=== PATIENT | female | born 1950 | race Caucasian/White ===

== ENCOUNTER 2020-10-19 05:26 | Inpatient (IN) | payer MEDICARE, OTHER, SELFPAY ==
[2020-10-19] VITALS (14 sets, daily range): BP systolic 107–159; BP diastolic 63–87; PULSE 58–80; RESP 15–21; TEMP 36.3–36.4; O2SAT 90–98; BMI 36.2
--- NOTE | ~2020-10-19 | CT_ITS ---
EXAMINATION: CT brain wo con DATE: 10/19/2020 06:44 INDICATION: Confusion TECHNIQUE: Computed tomography (CT) of the head was performed without intravenous contrast. The dose- length product was 756.67 mGy-cm. The mA was adjusted according to patient size. Iterative reconstruc tion technique was employed. COMPARISON: CT dated 11/30/2018 FINDINGS: Mild atrophy. There are scattered mild periventricular and subcortical white matter changes , most likely related to small vessel ischemic disease (microangiopathy). There is intracranial ather osclerosis. No ventriculomegaly or midline shift. Paranasal sinuses and mastoids are pneumatized. No depressed skull fractures. IMPRESSION: 1. No acute intracranial abnormality. Reviewed, dictated and finalized at location A. SS REPRESENTATIVE
--- NOTE | ~2020-10-19 | XR_ITS ---
XR chest 1V 10/19/2020 06:45 Indication: Shortness of breath. Low oxygen saturation. Procedure: AP view of the chest Comparison: 10/30/2019 Findings: Airspace disease of the left mid and lower lung. Borderline heart size. No edema, pleural e ffusion or pneumothorax. No acute osseous abnormality. Airspace disease of the left mid and lower roshni g, consistent with pneumonia. Impression: 1: Reviewed, dictated and finalized at location A. INTAKE WORKER Impression: 1:
--- NOTE | ~2020-10-19 | CT_ITS ---
EXAMINATION: CTA chest PE protocol DATE: 10/19/2020 07:05 CHIPPER INDICATION: Shortness of breath. Low oxygen saturation. TECHNIQUE: Computed tomographic angiography (CTA) of the chest was performed with 100 mL Omnipaque-35 0 intravenous contrast. The dose-length product was 453.51 mGy-cm. Maximum intensity projection 3D-re constructions of the aorta and other arteries were constructed by the technologist on a separate work station. COMPARISON: Chest x-ray dated 10/19/2020. FINDINGS: The study is technically adequate without evidence for pulmonary embolism. No significant p leural or pericardial effusion. Mild mediastinal lymphadenopathy, likely reactive. Cardiomegaly. Trac e pleural effusions. No significant pericardial effusion. The upper abdomen is unremarkable. There is patchy diffuse groundglass opacification throughout both lungs, consistent with pneumonia. N o endobronchial lesions. IMPRESSION: 1. Patchy diffuse bilateral groundglass opacification of the lungs, compatible with pneumonia. 2: Cardiomegaly. 3: No evidence for pulmonary embolism. Reviewed, dictated and finalized at location A. PER
--- NOTE | ~2020-10-19 | XR_ITS ---
XR chest 1V portable 10/21/2020 06:08 Indication: Follow-up pneumonia. Dyspnea. Procedure: AP portable chest Comparison: Comparison to multiple prior studies sequentially, with oldest reviewed study dated 03/29. Findings: Bilateral perihilar airspace disease. Heart size normal. No pleural effusion or pneumothora x. There is atherosclerosis. No acute osseous abnormality. Impression: 1: Persistent perihilar airspace disease which may represent pneumonia or developing edema. Reviewed, dictated and finalized at location A. DRY MACHINE TENDER Impression: 1: Persistent perihilar airspace disease which may represent pneumonia or devel oping edema.
--- NOTE | 2020-10-19 05:35 | ECG_ITS ---
Measurements Intervals [place] Rate: 65 P: 17 VT: 155 QRS: -5 QRSD: 85 T: 14 QT: 440 QTc: 459 Interpretive Statements SINUS RHYTHM VOLTAGE CRITERIA FOR LVH BORDERLINE T WAVE ABNORMALITY- INFERIOR LEADS BORDERLINE ECG Electronically Signed On 10-19-2020 6:50:33 LIGHTING DESIGNER by Rudy Mo D.O.
[2020-10-19 05:53] LABS: Basophils Percent Auto 0.2 % (0.2-1.2); Eosinophils Absolute Auto 0.1 K/mm3 (0-0.3); Eosinophils Percent Auto 1.2 % (0-4.4); Hematocrit 39.5 % (37.0-47.0); Hemoglobin 13.3 g/dL (12.0-15.0); Immature Granulocyte Absolute 0.01 K/mm3 (0.00-0.031); Immature Granulocyte Percent A 0.2 % (0-0.5); Immature Platelet Fraction Pct 3.3 % (0.9-11.2); Lymphocytes Absolute Auto 0.77 K/mm3 (0.9-3.2); Lymphocytes Percent Auto 18.6 % (18.3-44.2); Mean Corpuscular HGB Conc 33.7 g/dl (32-36); Mean Corpuscular Hemoglobin 32.6 pg (26-34); Mean Corpuscular Volume 96.8 fl (80-100); Mean Platelet Volume 10.5 fl (7.4-10.4); Monocytes Absolute Auto 0.4 K/mm3 (0.1-0.6); Monocytes Percent Auto 10.4 % (2.6-8.5); Neutrophils Absolute Auto 2.9 K/mm3 (1.3-6.7); Neutrophils Percent Auto 69.4 % (45.5-73.1); Platelet Count Result 115 k/mm3 (150-375); Red Blood Count 4.08 M/mm3 (4.2-5.4); Red Cell Distribution Width 12.2 % (11.5-14.5); White Blood Count 4.1 K/mm3 (4.5-10.0)
[2020-10-19 06:05] LABS: Alanine Aminotransferase 19 U/L (4-35); Albumin Level 3.6 g/dL (3.5-5.1); Alkaline Phosphatase 75 U/L (38-126); Anion Gap 8 mmol/L (8-16); Aspartate Amino Transferase 31 U/L (14-36); Bilirubin,Total 0.4 mg/dL (0.2-1.3); Blood Urea Nitrogen 11 mg/dL (7-17); Calcium 8.6 mg/dL (8.4-10.2); Carbon Dioxide 23 mmol/L (22-30); Chloride 105 mmol/L (98-107); Estimated CRCL calculation 67 ml/min; Estimated Glomerular Filt Rate > 60; Glucose 96 mg/dL (65-105); Potassium 3.7 mmol/L (3.4-5.0); Sodium 136 mmol/L (137-145)
--- NOTE | 2020-10-19 06:14 | ED.GENADULT ---
HPI - General Adult General Chief complaint: Dizziness Stated complaint: dizziness, no taste or smell, slow speech, Time Seen by Provider: 10/19/20 05:51 Source: patient Mode of arrival: ambulatory Limitations: no limitations History of Present Illness HPI narrative: Patient is a 7-year-old female complaining of low oxygen saturation at home, between 85 to 90% on her pulse oximeter, fever, headache, loss of taste and smell that started yesterday. Patient's partner also states that patient haD been confused described as repeating herself . Patient is alert and oriented x4 and not confused on examination. Patient states that her partner just tested positive for Covid 1 week ago. Related Data Home Medications Medication Instructions Recorded Confirmed alprazolam 10/30/19 atorvastatin 10/30/19 citalopram mg 10/30/19 lisinopril 10/30/19 Allergies Allergy/AdvReac Type Severity Reaction Status Date / Time Penicillins Allergy Unknown Rash Verified 07/28/19 18:36 Review of Systems Review of Systems: All systems reviewed & are unremarkable except as noted in HPI and below Constitutional: Constitutional: Denies body ache(s), Denies chills, Denies excessive sweating, Denies fatigue, Denies headache(s), Denies lethargy, Denies weakness and Denies weight loss Eyes: Eyes: Denies blurry vision, Denies change in vision and Denies loss of vision ENT: Denies dizziness, Denies ear discharge, Denies headache(s), Denies lip swelling, Denies epistaxis, Denies nasal congestion, Denies neck pain, Denies throat swelling and Denies tongue swelling Cardiovascular: Cardiovascular: Denies chest pain, Denies chest pain at rest, Denies chest pain with activity, Denies diaphoresis, Denies rapid heart rate, Denies edema, Denies irregular heart rhythm, Denies lightheadedness, Denies palpitations, Denies dyspnea and Denies dyspnea on exertion Respiratory: Respiratory: Denies chest congestion, Denies cough and Denies hemoptysis Gastrointestinal: Gastrointestinal: Denies abdominal pain, Denies melena, Denies hematochezia, Denies diarrhea, Denies nausea, Denies vomiting and Denies hematemesis Musculoskeletal: Musculoskeletal: Denies abnormal gait, Denies deformity, Denies joint swelling, Denies limited range of motion, Denies neck pain and Denies numbness Neurologic: Denies Abnormal speech present, Denies abnormal gait, Denies dizziness, Denies headache(s), Denies focal weakness, Denies loss of vision, Denies numbness, Denies Other visual disturbances, Denies Sensory deficit (Neuro) and Denies weakness Psychiatric: Psychiatric: Denies confusion, Denies depression, Denies auditory hallucinations, Denies homicidal ideation and Denies suicidal ideation Endocrine: Endocrine: Denies cold intolerance, Denies excessive sweating, Denies fatigue, Denies heat intolerance and Denies palpitations Hematologic/Lymphatic: Hematologic/Lymphatic: Denies easy bleeding and Denies easy bruising Allergic/Immunologic: Allergic/Immunologic: Denies lip swelling, Denies throat swelling and Denies tongue swelling [facility] Past Medical History Medical History (Updated 10/31/19 @ 00:00 by Background Daemon) CAD (coronary artery disease) Chronic back pain Depression Diabetes mellitus, type II HLD (hyperlipidemia) HTN (hypertension) Hx of hepatitis C Sleep apnea TIA (transient ischemic attack) 1999 Surgical History Surgical History H/O gastric bypass Lap band procedure Hx of cholecystectomy Hx of hysterectomy Family History Family History Other Cerebrovascular accident Diabetes mellitus Hypertension Social History Social History Smoking status: Never smoker Exam Const: General: cooperative, healthy appearing, comfortable, no acute distress, well developed, alert and awake; No confusio
[2020-10-19 06:17] LABS: Alveolar/Arterial O2 Gradient 69.2 mmHg; Base Excess ABG -5.3 mEq/l (+/-2.0); Carboxyhemoglobin 0.6 % THb (0-2.0); Fractional Inspired Oxygen 26 %; Methemoglobin ABG 0.3 %THb (0-1.5); Oxygen Content ABG 17.7 %vol (16.0-22.0); Oxygen Saturation ABG 95.2 % (95.0-100.0); Oxyhemoglobin 93.8 % THb (90.0-100.0); PCO2 ABG 33.3 mmHg (35.0-45.0); PO2 ABG 76.7 mmHg (80.0-100.0); PO2 FiO2 Ratio Arterial Blood 2.95 %; Reduced Hemoglobin 5.3 %THb (0-5.0); Total Hemoglobin 13.4 g/dL (12.0-18.0); pH ABG 7.374 (7.350-7.450)
[2020-10-19 06:18] LABS: Device NASAL CANNULA; Liters per Minute 1.5 LPM; Modified Allen's Test Pass; Site Drawn RIGHT RADIAL
[2020-10-19 06:24] LABS: Add Urine Microscopic? YES; Appearance Urine Clear (Clear); Bilirubin Urine Negative (Negative); Blood Urine Negative (Negative); Color Urine Straw (Yellow); Glucose Urine UA Negative (Negative); Ketones Urine Negative (Negative); Leukocyte Esterase Ur Negative LEU/UL (Negative); Nitrate Urine Negative (Negative); Protein Urine Negative (Negative); Specific Grav Ur 1.008 (1.001-1.035); Urobilinogen Urine Negative mg/dL (<2.0); WBC Urine 0-3 /hpf
[2020-10-19 06:34] LABS: INR 0.9; Prothrombin Time 13.2 Seconds (11.1-14.7)
[2020-10-19 06:35] LABS: Lactic Acid Reflex 1.4 mmol/L (0.7-2.1)
[2020-10-19 06:35] LABS: Partial Thromboplastin Time 34.9 SECONDS (22.3-36.8)
[2020-10-19 06:37] LABS: D Dimer 0.34 ug/mL (<0.48)
[2020-10-19 06:40] LABS: NT Pro B Type Natriuretic Pept 148 PG/ML (5-100); Troponin I < 0.012 ng/mL (0.000-0.034)
--- NOTE | 2020-10-19 07:07 | PC.NURSE ---
Assumed care of pt at this time, pt is alert and upright on stretcher, pt on tele monitor, assumed POC.
--- NOTE | 2020-10-19 09:25 | PC.NURSE ---
This patient, Melvina Paige, was admitted to [facility] Surg Room 316-01. Patient/family oriented to hospital policies and general routines including ID bracelet, bed and alarms, visiting hours, pain management, procedures, bathroom and other care routines, personal items, smoking policy, room service/diet, and visiting hours.Report received from Lesvia LYNNE Information on how to activate the Rapid Response Team has been discussed. Patient/Family are encouraged to report perceived risks to care and to ask questions if they do not understand what they are told or what they should do.
--- NOTE | 2020-10-19 13:50 | PM.IMHP ---
H&P: HPI History of Present Illness Date/Time: 10/19/20 13:50 Chief Complaint: Fever and hypoxia Narrative: Melvina Paige is a 70 year old female who stated that she started to feel ill shortly after [place]. Her roommate tested positive for COVID-19 shortly after [place]. The patient said she had pneumonia a year ago and this felt similar to what she did 1 year ago. The patient came in today because she has been running some high fevers. + her roommate was tested positive for COVID-19. Patient has body aches but no diarrhea or vomiting. The patient stated she also has lost her taste and smell. Earlier apparently she was somewhat confused but now she is answering questions without difficulty. The patient had oxygen saturation that was between 85 and 90 when the EMS was called. The patient was repeating herself. Herself tested for COVID but was tested today in our ER. No acute intracranial abnormality. Opacities of lungs compatible with pneumonia. Cardiomegaly no evidence of pulmonary embolism. Chest x-ray was taken but not red. On dexamethasone and she was given Rocephin and azithromycin. Patient is on 2 L per nasal cannula. Patient is admitted into inpatient status on the date of service of 10/19/2020. Review of Systems Review of Systems: All systems reviewed & are unremarkable except as noted in HPI and below Constitutional: Constitutional: Reports as per HPI and Reports no additional constitutional complaints Eyes: Eyes: Reports as per HPI and Reports no additional eye complaints ENT: Reports system reviewed and no additional complaints, except as documented and Reports Normal hearing present Cardiovascular: Cardiovascular: Reports no additional cardiovascular complaints Respiratory: Respiratory: Reports no additional respiratory complaints and Reports no additional respiratory complaints Gastrointestinal: Gastrointestinal: Reports as per HPI and Reports no additional gastrointestinal complaints Musculoskeletal: Musculoskeletal: Reports no additional musculoskeletal complaints Integumentary/Breasts: Skin/Breast: Reports system reviewed and no additional complaints, except as docu and Reports as per HPI Neurologic: Reports system reviewed and no additional complaints, except as documented, Reports as per HPI and Reports Normal hearing present Psychiatric: Psychiatric: Reports no additional psychiatric complaints and Reports as per HPI Endocrine: Endocrine: Reports no additional endocrine complaints Hematologic/Lymphatic: Hematologic/Lymphatic: Reports no additional hematologic/lymphatic complaints Allergic/Immunologic: Allergic/Immunologic: Reports no additional allergic/immunologic complaints [facility] Past Medical History Medical History (Updated 10/19/20 @ 14:01 by Raina Lamar NP) CAD (coronary artery disease) Chronic back pain Depression Diabetes mellitus, type II HLD (hyperlipidemia) HTN (hypertension) Hx of hepatitis C Treated with interferon Sleep apnea TIA (transient ischemic attack) 1999 Surgical History Surgical History (Updated 10/19/20 @ 14:01 by Raina Lamar NP) H/O gastric bypass Lap band procedure H/O left wrist surgery H/O right wrist surgery Hx of cholecystectomy Hx of hysterectomy S/P cervical spinal fusion Family History Family History Mother Diabetes mellitus Hypertension Cerebrovascular accident Father Brain tumor Social History Social History (Updated 10/19/20 @ 14:03 by Raina Lamar NP) Social History: The patient lives with a roommate. She has 1 child which is her daughter. Her daughter is a durable power deputy prosecuting attorney for healthcare. The patient desires to be a full code. 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 Smoking status: Never smoker Alcohol intake: never Substance use: never Gender identity (if verbalized by the patient): Female S
[2020-10-19] MEDS: ALPRAZolam (*CRX) 0.5 MG TABLET 1 MG PO (14:33)
[2020-10-19 17:42] LABS: SARS-CoV-2 RNA PCR Positive
[2020-10-19] MEDS: CITALOPRAM HYDROBROMIDE 20 MG TABLET 40 MG PO (20:50)
[2020-10-19] MEDS: ATORVASTATIN 40 MG TABLET PO (20:50)
[2020-10-19] MEDS: lisinopriL 20 MG TABLET PO (20:50)
[2020-10-19] MEDS: ALPRAZolam (*CRX) 0.5 MG TABLET 2 MG PO (20:51)
[2020-10-20] VITALS (7 sets, daily range): BP systolic 134–173; BP diastolic 70–92; PULSE 53–89; RESP 16–22; TEMP 36.1–37.5; O2SAT 91–95
[2020-10-20] MEDS: guaiFENesin/DEXTROMETHORPHAN 10 ML UDC PO (05:50)
[2020-10-20 06:50] LABS: Hematocrit 38.8 % (37.0-47.0); Hemoglobin 13.2 g/dL (12.0-15.0); Immature Granulocyte Absolute 0.02 K/mm3 (0.00-0.031); Immature Granulocyte Percent A 0.4 % (0-0.5); Immature Platelet Fraction Pct 3.1 % (0.9-11.2); Lymphocytes Percent Auto 10.7 % (18.3-44.2); Mean Corpuscular Hemoglobin 32.8 pg (26-34); Mean Corpuscular Volume 96.5 fl (80-100); Mean Platelet Volume 10.8 fl (7.4-10.4); Monocytes Absolute Auto 0.5 K/mm3 (0.1-0.6); Monocytes Percent Auto 9.1 % (2.6-8.5); Neutrophils Absolute Auto 4.5 K/mm3 (1.3-6.7); Neutrophils Percent Auto 79.8 % (45.5-73.1); Platelet Count Result 151 k/mm3 (150-375); Red Blood Count 4.02 M/mm3 (4.2-5.4); Red Cell Distribution Width 12.4 % (11.5-14.5); White Blood Count 5.6 K/mm3 (4.5-10.0)
[2020-10-20 07:01] LABS: Alanine Aminotransferase 19 U/L (4-35); Albumin Level 3.6 g/dL (3.5-5.1); Alkaline Phosphatase 66 U/L (38-126); Anion Gap 7 mmol/L (8-16); Aspartate Amino Transferase 26 U/L (14-36); Bilirubin,Total 0.4 mg/dL (0.2-1.3); Blood Urea Nitrogen 18 mg/dL (7-17); CRP 2.8 mg/dL (<1.0); Carbon Dioxide 25 mmol/L (22-30); Chloride 109 mmol/L (98-107); Estimated CRCL calculation 83 ml/min; Estimated Glomerular Filt Rate > 60; Glucose 152 mg/dL (65-105); Magnesium 1.9 mg/dL (1.6-2.3); Sodium 141 mmol/L (137-145)
[2020-10-20 07:42] LABS: Thyroid Stimulating Hormone Reflex 0.366 uIU/mL (0.465-4.68)
[2020-10-20 08:44] LABS: Free T4 Free Thyroxine Reflex 0.91 ng/dL (0.78-2.19)
[2020-10-20] MEDS: ALPRAZolam (*CRX) 0.5 MG TABLET 1 MG PO ×2 (09:51→12:13)
[2020-10-20] MEDS: ENOXAPARIN 40 MG/0.4 ML SYRINGE SUB-Q (09:52)
[2020-10-20 11:43] LABS: Total Triiodothyronine (T3) 1.03 NG/ML (0.97-1.69)
--- NOTE | 2020-10-20 19:37 | PM.IMPN ---
Progress Note: A&P Assessment and Plan (1) Suspected COVID-19 virus infection: Code(s): Z20.822 - Contact with and (suspected) exposure to COVID-19 Status: Acute Assessment and Plan: COVID + on test on 10/20/20 her roommate tested positive. Started on Decadron and REMdesivir given dose of a Zithromax and Rocephin in the emergency room Continue with incentive spirometer. Continue with Robitussin and mucinex.. Continue with albuterol. (2) Pneumonia: Code(s): J18.9 - Pneumonia, unspecified organism Status: Acute Assessment and Plan: Patient's white count is not elevated it is lower than normal. likely viral infection COVID + . result today, started on Antivials monitor for changes or need to be treated with antibiotics. (3) Anxiety: Code(s): F41.9 - Anxiety disorder, unspecified Status: Acute Assessment and Plan: Continued with Xanax and Celexa energetic (4) HTN (hypertension): Code(s): I10 - Essential (primary) hypertension Status: Chronic Assessment and Plan: Continue with lisinopril. The patient stated that she has a dry cough and has been going on for a while. I explained that this could be a side effect of her lisinopril. She states that it works well for her but she has a dry cough. I told her to think about the side effects if she could tolerate them and wants to stay on lisinopril we can continue with that but otherwise of the cough is getting to be too much that we may want to change her blood pressure medicine. BPs 134/84, HR 55-58 (5) HLD (hyperlipidemia): Code(s): E78.5 - Hyperlipidemia, unspecified Status: Chronic Assessment and Plan: Continue with monitor her liver functions. patient said that she had hepatitis C in the past and was treated with interferon. (6) Depression: Code(s): F32.9 - Major depressive disorder, single episode, unspecified Status: Chronic Assessment and Plan: Continue with Celexa. Subjective Date/time seen: 10/20/20 19:37 Melvina is feeling better. Received dose of Azithro and Rocephin in ED. No sighs of UTI or CAP - so antibiotics not continued. Agreeable to IV antiviral medication. COVID test returned positive. Her sats are on the low end of normal, on room air, 90-95%. No cough, may discharge home tomorrow if patient continues to improve. Trending Ferritin, CRP, and LDH. LFTs wnl. CRP elevated at 2.2, Ferritin WNL. Her WBC is 5.6, not really showing a response to the viral infection yet. Repeated labs in the morning.Continued the Dexamethasone. Review of Systems Review of Systems: All systems reviewed & are unremarkable except as noted in HPI and below Constitutional: Constitutional: Reports as per HPI, Reports no additional constitutional complaints, Denies body ache(s), Denies chills, Denies excessive sweating, Denies fatigue, Denies headache(s), Denies lethargy, Denies weakness and Denies weight loss Eyes: Eyes: Reports as per HPI, Reports no additional eye complaints, Denies blurry vision, Denies change in vision and Denies loss of vision ENT: Reports system reviewed and no additional complaints, except as documented, Reports Normal hearing present, Denies dizziness, Denies ear discharge, Denies headache(s), Denies lip swelling, Denies epistaxis, Denies nasal congestion, Denies neck pain, Denies throat swelling and Denies tongue swelling Cardiovascular: Cardiovascular: Reports no additional cardiovascular complaints, Denies chest pain, Denies chest pain at rest, Denies chest pain with activity, Denies diaphoresis, Denies rapid heart rate, Denies edema, Denies irregular heart rhythm, Denies lightheadedness, Denies palpitations, Denies dyspnea and Denies dyspnea on exertion Respiratory: Respiratory: Reports no additional respiratory complaints, Reports no additional respiratory complaints, Denies chest congestion, Denies cough, Denies hemoptysis, Denies dyspnea and
[2020-10-20 20:21] LABS: Alanine Aminotransferase 23 U/L (4-35); Lactate Dehydrogenase 511 U/L (313-618)
[2020-10-20] MEDS: ALPRAZolam (*CRX) 0.5 MG TABLET 2 MG PO (20:25)
[2020-10-20] MEDS: ATORVASTATIN 40 MG TABLET PO (20:25)
[2020-10-20] MEDS: CITALOPRAM HYDROBROMIDE 20 MG TABLET 40 MG PO (20:25)
[2020-10-20] MEDS: lisinopriL 20 MG TABLET PO (20:25)
[2020-10-20] MEDS: REMDESIVIR 200 MG/NS 250 ML 200 MG/250 ML BAG 250 MG IVPB (20:25)
[2020-10-21] VITALS: BP 153/69; PULSE 60; PULSE 66; RESP 18; TEMP 36.9; O2SAT 93
[2020-10-21 04:00] VITALS: BP 157/86; PULSE 47; PULSE 81; RESP 18; TEMP 36.9; O2SAT 90
[2020-10-21 06:13] LABS: Basophils Percent Auto 0.1 % (0.2-1.2); Hematocrit 38.8 % (37.0-47.0); Hemoglobin 13.2 g/dL (12.0-15.0); Immature Granulocyte Absolute 0.02 K/mm3 (0.00-0.031); Immature Granulocyte Percent A 0.3 % (0-0.5); Lymphocytes Absolute Auto 0.86 K/mm3 (0.9-3.2); Lymphocytes Percent Auto 12.9 % (18.3-44.2); Mean Corpuscular Hemoglobin 33.1 pg (26-34); Mean Corpuscular Volume 97.2 fl (80-100); Mean Platelet Volume 10.6 fl (7.4-10.4); Monocytes Absolute Auto 0.7 K/mm3 (0.1-0.6); Monocytes Percent Auto 10.3 % (2.6-8.5); Neutrophils Absolute Auto 5.1 K/mm3 (1.3-6.7); Neutrophils Percent Auto 76.4 % (45.5-73.1); Platelet Count Result 157 k/mm3 (150-375); Red Blood Count 3.99 M/mm3 (4.2-5.4); Red Cell Distribution Width 12.4 % (11.5-14.5); White Blood Count 6.7 K/mm3 (4.5-10.0)
[2020-10-21 06:35] LABS: Alanine Aminotransferase 21 U/L (4-35); Albumin Level 3.5 g/dL (3.5-5.1); Alkaline Phosphatase 68 U/L (38-126); Anion Gap 6 mmol/L (8-16); Aspartate Amino Transferase 30 U/L (14-36); Bilirubin,Total 0.4 mg/dL (0.2-1.3); Blood Urea Nitrogen 17 mg/dL (7-17); Calcium 8.8 mg/dL (8.4-10.2); Carbon Dioxide 27 mmol/L (22-30); Chloride 108 mmol/L (98-107); Estimated CRCL calculation 72 ml/min; Estimated Glomerular Filt Rate > 60; Glucose 119 mg/dL (65-105); Sodium 141 mmol/L (137-145)
[2020-10-21 06:50] LABS: Lactate Dehydrogenase 506 U/L (313-618)
[2020-10-21 08:00] VITALS: BP 185/79; PULSE 66; PULSE 82; RESP 20; TEMP 36; O2SAT 93
[2020-10-21] MEDS: ALPRAZolam (*CRX) 0.5 MG TABLET 1 MG PO ×2 (08:57→11:38)
[2020-10-21] MEDS: ENOXAPARIN 40 MG/0.4 ML SYRINGE SUB-Q (08:57)
[2020-10-21 12:00] VITALS: BP 176/92; PULSE 57; PULSE 62; RESP 20; TEMP 36.2; O2SAT 97
--- NOTE | 2020-10-21 14:28 | PM.IMPN ---
Subjective Date/time seen: 10/21/20 14:28 Interval history: 70 year old female who stated that she started to feel ill shortly after [place]. Her roommate tested positive for COVID-19 shortly after [place]. The patient said she had pneumonia a year ago and this felt similar to what she did 1 year ago. Had fever last night still has cough, started on remdesivir. Objective Data Vital Signs Vital Signs: Vital Signs - 24 hr 10/20/20 15:55 10/20/20 16:00 10/20/20 20:00 Temperature 36.4 C 37.5 C Pulse Rate 85 80 69 Respiratory Rate 20 18 Blood Pressure 154/90 H 151/70 H Pulse Oximetry 93 93 10/21/20 00:00 10/21/20 04:00 10/21/20 08:00 Temperature 36.9 C 36.9 C 36.0 C L Pulse Rate 66 81 66 Respiratory Rate 18 18 20 Blood Pressure 153/69 H 157/86 H 185/79 H Pulse Oximetry 93 90 93 10/21/20 12:00 Temperature 36.2 C L Pulse Rate 57 L Respiratory Rate 20 Blood Pressure 176/92 H Pulse Oximetry 97 Intake/Output Intake/Output: Intake & Output 10/18/20 10/19/20 10/20/20 10/21/20 23:59 23:59 23:59 23:59 Intake Total 1640 2280 1560 Output Total 1500 1650 850 Balance 140 630 710 Meds/Results Medications: Active Medications Generic Name Dose Route Start Last Admin Trade Name Freq PRN Reason Stop Dose Admin Albuterol 1 puff 10/19/20 13:44 Albuterol Sulfate (*Sp) Aerosol 1 Puff INHALATION Q3-4H PRN shortness of breath or wheezing Alprazolam 1 mg 10/19/20 12:00 10/21/20 11:38 Alprazolam (*Crx) 0.5 Mg Tablet PO 1 mg 09,12 GABRIELA Administration Alprazolam 2 mg 10/19/20 21:00 10/20/20 20:25 Alprazolam (*Crx) 0.5 Mg Tablet PO 2 mg HS GABRIELA Administration Atorvastatin Calcium 40 mg 10/19/20 21:00 10/20/20 20:25 Atorvastatin 40 Mg Tablet PO 40 mg HS GABRIELA Administration Citalopram Hydrobromide 40 mg 10/19/20 21:00 10/20/20 20:25 Citalopram Hydrobromide 20 Mg Tablet PO 40 mg HS GABRIELA Administration Dexamethasone Sodium Phosphate 6 mg 10/20/20 09:00 10/21/20 08:57 Dexamethasone Sod Phos Inj 10 Mg/Ml 1 Ml Vial IV PUSH 10/29/20 09:01 6 mg DAILY GABRIELA Administration Enoxaparin Sodium 40 mg 10/20/20 09:00 10/21/20 08:57 Enoxaparin 40 Mg/0.4 Ml Syringe SUB-Q 40 mg DAILY GABRIELA Administration Guaifenesin/Dextromethorphan 10 ml 10/19/20 13:48 10/20/20 05:50 Guaifenesin/Dextromethorphan 10 Ml Udc PO 10 ml Q4H PRN Administration Cough Remdesivir 100 mg in 250 mls @ 250 mls/hr 10/21/20 22:00 IVPB 10/24/20 22:01 Q24H GABRIELA Lisinopril 20 mg 10/19/20 21:00 10/20/20 20:25 Lisinopril 20 Mg Tablet PO 20 mg HS GABRIELA Administration Radiology Results: ITS Impressions Head CT 10/19/20 06:48 IMPRESSION: 1. No acute intracranial abnormality. Chest CTA 10/19/20 07:05 IMPRESSION: 1. Patchy diffuse bilateral groundglass opacification of the lungs, compatible with pneumonia. 2: Cardiomegaly. 3: No evidence for pulmonary embolism. Chest X-Ray 10/21/20 06:49 Impression: 1: Persistent perihilar airspace disease which may represent pneumonia or developing edema. Labs Labs: Laboratory Results - last 24 hr 10/20/20 10/20/20 10/21/20 20:06 20:06 05:54 WBC RBC Hgb Hct MCV MCH MCHC RDW Plt Count MPV Immature Gran % (Auto) Neut % (Auto) Lymph % (Auto) [place] % (Auto) Eos % (Auto) Baso % (Auto) Lymph # (Auto) [place] # (Auto) Eos # (Auto) Baso # (Auto) Abs Immat Gran (auto) Absolute Neuts (auto) Absolute Nucleated RBC Nucleated RBC % Sodium Potassium Chloride Carbon Dioxide Anion Gap BUN Creatinine Estim Creat Clear Calc Estimated GFR Glucose Calcium Ferritin 213.00 Total Bilirubin AST ALT 23 Alkaline Phosphatase Lactate Dehydrogenase 511 C-Reactive Protein Total Protein Albumin 10/21/20 10/21/20 05:54 05:54 WBC 6.7 RBC 3.99 L
[2020-10-21 16:00] VITALS: BP 181/96; PULSE 46; PULSE 56; RESP 20; TEMP 36.2; O2SAT 94
--- NOTE | 2020-10-21 18:30 | PM.IMPN ---
Progress Note: A&P Assessment and Plan (1) HTN (hypertension): Code(s): I10 - Essential (primary) hypertension Status: Chronic Assessment and Plan: Stable Continue to monitor (2) Pneumonia: Code(s): J18.9 - Pneumonia, unspecified organism Status: Acute Assessment and Plan: Receiving Remdesivir. Improved (3) Chronic back pain: Code(s): M54.9 - Dorsalgia, unspecified; G89.29 - Other chronic pain Status: Chronic Assessment and Plan: Stable Subjective Date/time seen: 10/21/20 18:30 I feel fine. No new issues overnight. Review of Systems Review of Systems: Narrative: Patient presented to ED due to sob, patient found to have Covid pneumonia. Constitutional: Comments: no fevers, no rigors. Cardiovascular: Comments: no chest pain. Respiratory: Comments: no sob. Gastrointestinal: Comments: no n/v/abdominal pain. Musculoskeletal: Comments: no tender joints. Neurologic: Comments: no sensory motor deficit. Exam Narrative: Exam Narrative: Lying in bed. Const: General: healthy appearing, comfortable, no acute distress, alert, awake and Physically active Nutritional Appearance: average body habitus HENMT: Head: normocephalic Face and sinus: normal facial exam Eyes: Pupils: Equal, round and reactive pupils present EOM: EOMs intact bilaterally Neck: Neck: no lymphadenopathy, supple and no JVD Resp: Effort & Inspection: able to speak in complete sentences Auscultation: clear to auscultation bilaterally Cardio: Rate: regular rate Rhythm: regular rhythm GI: GI Palp: Yes Soft to palpation and Yes No hepatosplenomegaly present Skin: General skin exam: normal color Lesions: no lesions Rashes: no rashes Wounds: no wounds Neuro: General: patient oriented x3 and CN's II-XI intact bilaterally Cranial nerves: Yes CN's II-XII intact bilaterally and Yes Equal, round and reactive pupils present Cognition (Neuro): normal cognition Extrem: General: no pedal edema Objective Data Vital Signs Vital Signs: Vital Signs - 24 hr 10/20/20 20:00 10/21/20 00:00 10/21/20 04:00 Temperature 99.5 F 98.5 F 98.4 F Pulse Rate 69 66 81 Respiratory Rate 18 18 18 Blood Pressure 151/70 H 153/69 H 157/86 H Pulse Oximetry 93 93 90 10/21/20 08:00 10/21/20 12:00 10/21/20 16:00 Temperature 96.8 F L 97.2 F L 97.1 F L Pulse Rate 66 57 L 56 L Respiratory Rate 20 20 20 Blood Pressure 185/79 H 176/92 H 181/96 H Pulse Oximetry 93 97 94 Intake/Output Intake/Output: Intake & Output 10/18/20 10/19/20 10/20/20 10/21/20 23:59 23:59 23:59 23:59 Intake Total 1640 2280 3000 Output Total 1500 1650 1950 Balance 435 207 5868 Meds/Results Medications: Active Medications Generic Name Dose Route Start Last Admin Trade Name Freq PRN Reason Stop Dose Admin Albuterol 1 puff 10/19/20 13:44 Albuterol Sulfate (*Sp) Aerosol 1 Puff INHALATION Q3-4H PRN shortness of breath or wheezing Alprazolam 1 mg 10/19/20 12:00 10/21/20 11:38 Alprazolam (*Crx) 0.5 Mg Tablet PO 1 mg GABRIELA Administration Alprazolam 2 mg 10/19/20 21:00 10/20/20 20:25 Alprazolam (*Crx) 0.5 Mg Tablet PO 2 mg HS GABRIELA Administration Atorvastatin Calcium 40 mg 10/19/20 21:00 10/20/20 20:25 Atorvastatin 40 Mg Tablet PO 40 mg HS GABRIELA Administration Citalopram Hydrobromide 40 mg 10/19/20 21:00 10/20/20 20:25 Citalopram Hydrobromide 20 Mg Tablet PO 40 mg HS GABRIELA Administration Dexamethasone Sodium Phosphate 6 mg 10/20/20 09:00 10/21/20 08:57 Dexamethasone Sod Phos Inj 10 Mg/Ml 1 Ml Vial IV PUSH 10/29/20 09:01 6 mg DAILY GABRIELA Administration Enoxaparin Sodium 40 mg 10/20/20 09:00 10/21/20 08:57 Enoxaparin 40 Mg/0.4 Ml Syringe SUB-Q 40 mg DAILY GABRIELA Administration Guaifenesin/Dextromethorphan 10 ml 10/19/20 13:48 10/20/20 05:50 Guaifenesin/Dextromethorphan 10 Ml Udc PO 10 ml Q4H PRN Administration Cough Remdesi
[2020-10-21 20:00] VITALS: BP 187/87; PULSE 43; PULSE 56; RESP 18; TEMP 36.3; O2SAT 94
[2020-10-21] MEDS: ATORVASTATIN 40 MG TABLET PO (20:04)
[2020-10-21] MEDS: CITALOPRAM HYDROBROMIDE 20 MG TABLET 40 MG PO (20:04)
[2020-10-21] MEDS: lisinopriL 20 MG TABLET PO (20:04)
[2020-10-21] MEDS: ALPRAZolam (*CRX) 0.5 MG TABLET 2 MG PO (20:04)
[2020-10-21] MEDS: REMDESIVIR 100 MG/NS 250 ML 100 MG/250 ML BAG 250 MG IVPB (21:39)
[2020-10-21] MEDS: hydrALAZINE HCL 20 MG/ML VIAL 10 MG IV PUSH (22:05)
[2020-10-21] MEDS: HYDROcodone/acetaminophen (*CRX) 5-325 MG TABLET 1 TAB PO (22:05)
[2020-10-22] VITALS: BP 168/60; PULSE 47; PULSE 66; RESP 18; TEMP 36.3; O2SAT 92
[2020-10-22] MEDS: guaiFENesin/DEXTROMETHORPHAN 10 ML UDC PO (01:14)
[2020-10-22 04:00] VITALS: BP 151/62; PULSE 61; PULSE 71; RESP 18; TEMP 36.4; O2SAT 95
[2020-10-22 06:32] LABS: Alanine Aminotransferase 45 U/L (4-35); Estimated CRCL calculation 72 ml/min; Estimated Glomerular Filt Rate > 60
[2020-10-22 08:00] VITALS: BP 170/66; PULSE 42; PULSE 52; RESP 18; TEMP 36.1; O2SAT 94
[2020-10-22] MEDS: ENOXAPARIN 40 MG/0.4 ML SYRINGE SUB-Q (11:13)
[2020-10-22 12:00] VITALS: BP 176/98; PULSE 46; PULSE 52; RESP 18; TEMP 36.6; O2SAT 93
[2020-10-22] MEDS: ALPRAZolam (*CRX) 0.5 MG TABLET 1 MG PO (13:23)
[2020-10-22] MEDS: LOPERAMIDE HCL 2 MG CAPSULE PO ×2 (13:23→16:42)
--- NOTE | 2020-10-22 13:43 | PM.IMPN ---
Progress Note: A&P Assessment and Plan (1) Suspected COVID-19 virus infection: Code(s): Z20.822 - Contact with and (suspected) exposure to COVID-19 Status: Acute Assessment and Plan: COVID + on test on 10/20/20 her roommate tested positive. Started on Decadron and REMdesivir given dose of a Zithromax and Rocephin in the emergency room but d/c'ed Continue with incentive spirometer. Continue with Robitussin and mucinex.. Continue with albuterol. If her diarrhea improves with loperamide, she would like to go home in 1-2 days on PO dexamethasone. (2) Pneumonia: Code(s): J18.9 - Pneumonia, unspecified organism Status: Acute Assessment and Plan: Patient's white count is not elevated it is lower than normal. likely viral infection COVID + monitor for changes or need to be treated with antibiotics. (3) Anxiety: Code(s): F41.9 - Anxiety disorder, unspecified Status: Acute Assessment and Plan: Continued with Xanax and Celexa energetic (4) HTN (hypertension): Code(s): I10 - Essential (primary) hypertension Status: Chronic Assessment and Plan: Continue with lisinopril. Monitor cough (5) HLD (hyperlipidemia): Code(s): E78.5 - Hyperlipidemia, unspecified Status: Chronic Assessment and Plan: Continue with monitor her liver functions. She had hepatitis C in the past and was treated with interferon. (6) Depression: Code(s): F32.9 - Major depressive disorder, single episode, unspecified Status: Chronic Assessment and Plan: Continue with Celexa. Subjective Date/time seen: 10/22/20 13:43 Interval history: Admitted 10/19 with COVID-19. Feeling better. Tolerating diet. But having watery diarrhea. No cramping. No n/v. Tolerating diet. No pain or fever or abnormal bleeding. Mild EDEN. Review of Systems Review of Systems: All systems reviewed & are unremarkable except as noted in HPI and below Exam Narrative: Exam Narrative: HEENT: EOMI, PERRL, sclerae nonicteric, pharyngeal mucosa pink and intact NECK: No JVD CHEST: Clear to auscultation. Normal effort. HEART: NL S1/S2, regular, no murmur ABDOMEN: BS+, soft, nontender, no mass, no bruits EXTREMITIES: No cyanosis, edema, or clubbing NEUROLOGIC: CN intact and symmetric to inspection. MUSCULOSKELETAL: Tone and strength symmetric. PSYCH: Alert. Oriented to person, place, and time. Objective Data Vital Signs Vital Signs: Vital Signs - 24 hr 10/21/20 16:00 10/21/20 20:00 10/22/20 00:00 Temperature 97.1 F L 97.4 F L 97.3 F L Pulse Rate 56 L 43 L 66 Respiratory Rate 20 18 18 Blood Pressure 181/96 H 187/87 H 168/60 H Pulse Oximetry 94 94 92 10/22/20 04:00 10/22/20 08:00 Temperature 97.5 F L 96.9 F L Pulse Rate 61 52 L Respiratory Rate 18 18 Blood Pressure 151/62 H 170/66 H Pulse Oximetry 95 94 Intake/Output Intake/Output: Intake & Output 10/19/20 10/20/20 10/21/20 10/22/20 23:59 23:59 23:59 23:59 Intake Total 1640 2280 3250 375 Output Total 1500 1650 1950 900 Balance 102 445 3139 -525 Meds/Results Medications: Active Medications Generic Name Dose Route Start Last Admin Trade Name Freq PRN Reason Stop Dose Admin Acetaminophen 650 mg 10/21/20 21:56 Acetaminophen 325 Mg Tablet PO Q4H PRN Mild Pain (1-3) or Fever Albuterol 1 puff 10/19/20 13:44 Albuterol Sulfate (*Sp) Aerosol 1 Puff INHALATION Q3-4H PRN shortness of breath or wheezing Alprazolam 1 mg 10/19/20 12:00 10/22/20 13:23 Alprazolam (*Crx) 0.5 Mg Tablet PO 1 mg ,12 GABRIELA Administration Alprazolam 2 mg 10/19/20 21:00 10/21/20 20:04 Alprazolam (*Crx) 0.5 Mg Tablet PO 2 mg HS GABRIELA Administration Atorvastatin Calcium 40 mg 10/19/20 21:00 10/21/20 20:04 Atorvastatin 40 Mg Tablet PO 40 mg HS GABRIELA Administration Citalopram Hydrobromide 40 mg 10/19/20 21:00 10/21/20 20:04 Citalopram Hydrobromide 20
[2020-10-22 16:00] VITALS: BP 155/78; PULSE 49; PULSE 56; RESP 20; TEMP 36.3; O2SAT 97
[2020-10-22 20:00] VITALS: BP 169/76; PULSE 59; RESP 21; TEMP 36.4; O2SAT 93; O2SAT 97
[2020-10-22] MEDS: ALPRAZolam (*CRX) 0.5 MG TABLET 2 MG PO (21:06)
[2020-10-22] MEDS: lisinopriL 20 MG TABLET PO (21:07)
[2020-10-22] MEDS: CITALOPRAM HYDROBROMIDE 20 MG TABLET 40 MG PO (21:07)
[2020-10-22] MEDS: ATORVASTATIN 40 MG TABLET PO (21:07)
[2020-10-22] MEDS: REMDESIVIR 100 MG/NS 250 ML 100 MG/250 ML BAG 250 MG IVPB (21:09)
[2020-10-23] VITALS: BP 178/56; PULSE 42; PULSE 54; RESP 20; TEMP 36.9; O2SAT 94
[2020-10-23 04:00] VITALS: BP 162/94; PULSE 43; PULSE 55; RESP 18; TEMP 37; O2SAT 97
[2020-10-23 07:06] LABS: Alanine Aminotransferase 36 U/L (4-35); Estimated CRCL calculation 83 ml/min; Estimated Glomerular Filt Rate > 60
[2020-10-23 08:00] VITALS: BP 191/94; PULSE 52; PULSE 61; RESP 20; TEMP 36.1; O2SAT 96
[2020-10-23 08:09] VITALS: BP 191/94
[2020-10-23] MEDS: LOPERAMIDE HCL 2 MG CAPSULE PO ×2 (09:11→12:46)
[2020-10-23] MEDS: lisinopriL 20 MG TABLET PO (09:12)
[2020-10-23] MEDS: ENOXAPARIN 40 MG/0.4 ML SYRINGE SUB-Q (09:12)
--- NOTE | 2020-10-23 09:46 | PC.NURSE ---
All charting and medications done from 430-246 was done by Pao Ball RN but documented under the name of Nicolas Kincaid RN by mistake.
--- NOTE | 2020-10-23 09:53 | PC.NURSE ---
All charting and medications done from 8100 on this patient was done by Pao Ball RN but documented under the name of Nicolas Kincaid RN by mistake.
[2020-10-23 12:00] VITALS: BP 170/84; PULSE 54; PULSE 57; RESP 22; TEMP 36.6; O2SAT 95
[2020-10-23] MEDS: ALPRAZolam (*CRX) 0.5 MG TABLET 1 MG PO (12:46)
--- NOTE | 2020-10-23 14:31 | PM.DS ---
DS: Admitting Diagnosis Admitting Diagnosis Admitting Diagnosis: Pneumonia DS: Discharge Diagnosis Discharge Diagnosis (1) Suspected COVID-19 virus infection: Code(s): Z20.822 - Contact with and (suspected) exposure to COVID-19 Status: Acute Assessment and Plan: COVID + on test on 10/20/20 her roommate tested positive. Started on Decadron and REMdesivir given dose of a Zithromax and Rocephin in the emergency room but d/c'ed Continue with incentive spirometer. Continue with Robitussin and mucinex.. Continue with albuterol. If her diarrhea improves with loperamide, she would like to go home in 1-2 days on PO dexamethasone. (2) Pneumonia: Code(s): J18.9 - Pneumonia, unspecified organism Status: Acute Assessment and Plan: Patient's white count is not elevated it is lower than normal. likely viral infection COVID + monitor for changes or need to be treated with antibiotics. (3) Anxiety: Code(s): F41.9 - Anxiety disorder, unspecified Status: Acute Assessment and Plan: Continued with Xanax and Celexa energetic (4) HTN (hypertension): Code(s): I10 - Essential (primary) hypertension Status: Chronic Assessment and Plan: Continue with lisinopril. Monitor cough (5) HLD (hyperlipidemia): Code(s): E78.5 - Hyperlipidemia, unspecified Status: Chronic Assessment and Plan: Continue with monitor her liver functions. She had hepatitis C in the past and was treated with interferon. (6) Depression: Code(s): F32.9 - Major depressive disorder, single episode, unspecified Status: Chronic Assessment and Plan: Continue with Celexa. DS: Summary Hospital Course Reason for hospitalization: Fever, body aches, fatigue, loss of gustatory and olfactory senses Hospital Course: Presented with above sx's for about two weeks and roommate who tested positive for COVID-19. Her oxygen saturation was in the upper 80s and she required 2 L oxygen at admission. Dexamethasone and remdesivir were begun. She received zithromax and rocephin one dose each while in ED on 10/19. By day of discharge, her oxygen saturations were 95% on room air at rest. She was tolerating her diet and ambulating indepdendently. Status at Discharge Functional status at discharge: independent ambulation Overall status at discharge: patient is progressing back to baseline Time Spent with Patient Time attestation: Total time spent providing and/or coordinating discharge services: 35 min Exam Narrative: Exam Narrative: HEENT: EOMI, PERRL, sclerae nonicteric, pharyngeal mucosa pink and intact NECK: No JVD CHEST: Clear to auscultation. Normal effort. HEART: NL S1/S2, regular, no murmur ABDOMEN: BS+, soft, nontender, no mass, no bruits EXTREMITIES: No cyanosis, edema, or clubbing NEUROLOGIC: CN intact and symmetric to inspection. MUSCULOSKELETAL: Tone and strength symmetric. PSYCH: Alert. Oriented to person, place, and time. DS: Data Data Completed and Pending Labs on day of discharge: Labs from last 24 hours 10/23/20 06:07 Creatinine 0.60 L Estim Creat Clear Calc 83 Estimated GFR > 60 ALT 36 H Preliminary micro results at discharge 10/19/20 07:19 Blood Culture - Preliminary Blood 10/19/20 07:15 Blood Culture - Preliminary Blood Discharge Plan Discharge Discharging Clinician: Raji Hernandez Patient Disposition: Home, Self-Care Activity: no straining Diet: low sodium Patient Instructions: Antibiotic Form, Acute Diarrhea (GEN), COVID-19 (Coronavirus Disease 2019) (GEN) Stand Alone Forms: General Discharge Information Follow-up/Referrals: Laura,Jerri Brown MD [Primary Care Provider] - 1 Week Discharge Medications: New acetaminophen [Mapap (acetaminophen)] 325 mg Tablet 650 mg PO Q4H PRN (Reason: Mild Pain (1-3) Or Fever) Qty: 60 RF: 0 lisinopril 20 mg Tablet 20 mg PO BID Qty: 60 RF: 0 dex
== END 2020-10-23 15:30 | disposition home or self-care (01) | DRG 177 ==
LOC: ANHED 09:16 → ANH3MEDSUR 10-20 09:46
PROVIDERS: Emergency Medicine; Nurse Practitioner; Admitting Provider Internal Medicine; Emergency Provider Emergency Medicine; PCP Family Medicine; Visit Provider Nurse Practitioner
DX: U07.1 COVID-19 (principal); J12.82 Pneumonia due to coronavirus disease 2019; E78.5 Hyperlipidemia, unspecified; F32.9 Major depressive disorder, single episode, unspecified; I10 Essential (primary) hypertension; I25.10 Atherosclerotic heart disease of native coronary artery without angina pectoris; E11.9 Type 2 diabetes mellitus without complications; Z86.73 Personal history of transient ischemic attack (TIA), and cerebral infarction without residual deficits; G47.30 Sleep apnea, unspecified
CPT/HCPCS: 36415; 36600; 51701; 70450; 71045; 71275; 80053; 81001; 82375; 82565; 82728; 82805; 83050; 83605; 83615; 83735; 83880; 84439; 84443; 84460; 84480; 84484; 85025; 85055; 85380; 85610; 85730; 86140; 87040; 93005; 96365; 96375; 99285; A9270; C9803; J0360; J0456; J0696; J1100; J1650; Q9967; U0003

== ENCOUNTER 2021-05-24 12:29 | Emergency (ER) | payer MEDICARE, OTHER, SELFPAY ==
[2021-05-24 12:37] VITALS: BP 122/54; PULSE 96; RESP 16; TEMP 36.1; O2SAT 97
--- NOTE | 2021-05-24 13:45 | ED.NAVMDI ---
HPI - Nausea/Vomiting/Diarrhea General Chief complaint: Nausea/Vomiting/Diarrhea Stated complaint: fever/diarrhea Time Seen by Provider: 05/24/21 13:33 Source: patient and RN notes reviewed Mode of arrival: ambulatory Limitations: no limitations History of Present Illness HPI Narrative: Patient presents today complaining of constant watery diarrhea x3 days, fever that ranges from 102-103.7, and intermittent confusion. This morning her fever was 102. Denies nausea, vomiting, abdominal pain. Denies blood or mucus in the stool. She has been taking Tylenol and Imodium without relief. She has been vaccinated against COVID-19. MD elicited complaint: diarrhea Related Data Home Medications Medication Instructions Recorded Confirmed alprazolam 1 mg PO ,10/30/19 10/19/20 atorvastatin 40 mg PO HS 10/30/19 10/19/20 citalopram 40 mg PO HS 10/30/19 10/19/20 Allergies Allergy/AdvReac Type Severity Reaction Status Date / Time Penicillins Allergy Unknown Rash Verified 10/19/20 07:08 Review of Systems Review of Systems: CONSTITUTIONAL: Denies body aches. + Fever, sweats EYES: Denies visual changes, redness, or discharge. ENT: Denies rhinorrhea, congestion, sore throat, or otalgia. CARDIOVASCULAR: Denies chest pain, palpitations, or edema. RESPIRATORY: Denies cough or dyspnea. GASTROINTESTINAL: Denies abdominal pain, nausea, vomiting. + Diarrhea GENITOURINARY: Denies dysuria or hematuria. SKIN: Denies rash, itching, or wounds. MUSCULOSKELETAL: Denies back pain, joint pain, or myalgia. NEUROLOGIC: Denies headache, numbness, tingling, or weakness.+ Confusion PSYCH: Denies depression or anxiety. [facility] Past Medical History Medical History CAD (coronary artery disease) Chronic back pain Depression Diabetes mellitus, type II HLD (hyperlipidemia) HTN (hypertension) Hx of hepatitis C Treated with interferon Sleep apnea TIA (transient ischemic attack) 1999 Surgical History Surgical History H/O gastric bypass Lap band procedure H/O left wrist surgery H/O right wrist surgery Hx of cholecystectomy Hx of hysterectomy S/P cervical spinal fusion Family History Family History Mother Diabetes mellitus Hypertension Cerebrovascular accident Father Brain tumor Social History Social History Social History: The patient lives with a roommate. She has 1 child which is her daughter. Her daughter is a durable power trust and estates attorney for healthcare. The patient desires to be a full code. 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 Smoking status: Never smoker Alcohol intake: never Substance use: never Gender identity (if verbalized by the patient): Female Spiritual care concerns: No Comments At time of signature, I have reviewed and agree with nursing past medical, surgical, social and family history unless otherwise noted. Please see nursing chart for further information. There is no relevant family history pertinent to the presenting complaint Exam Narrative: GENERAL: Ill-appearing, well-nourished, and in no acute distress. Diaphoretic. Hair is wet HEAD: Normocephalic, atraumatic. EYES: EOMI. No redness or drainage. Conjunctivae normal. ENT: Mucous membranes pink and slightly tacky. Lips are cracked and dry. Nares clear. No rhinorrhea. TMs normal bilaterally. Throat normal. Uvula midline. NECK: Normal AROM. Supple. No lymphadenopathy. CHEST: No respiratory distress. Clear to auscultation. HEART: Regular rate and rhythm. No murmur appreciated. Normal peripheral pulses. ABDOMEN: Soft, nontender, nondistended, normal active bowel sounds. MUSCULOSKELETAL: No bony tenderness. EXTREMITIES: Normal range of motion. No edema. SKIN: Warm, dry,
== END 2021-05-24 13:58 | disposition left against medical advice (07) ==
PROVIDERS: Emergency Provider Nurse Practitioner; PCP Family Medicine
DX: R19.7 Diarrhea, unspecified (principal); R50.9 Fever, unspecified; Z20.822 Contact with and (suspected) exposure to COVID-19; I25.10 Atherosclerotic heart disease of native coronary artery without angina pectoris; E11.9 Type 2 diabetes mellitus without complications; E78.5 Hyperlipidemia, unspecified; I10 Essential (primary) hypertension; Z86.19 Personal history of other infectious and parasitic diseases; G47.30 Sleep apnea, unspecified; Z86.73 Personal history of transient ischemic attack (TIA), and cerebral infarction without residual deficits; Z98.84 Bariatric surgery status
CPT/HCPCS: 87426; 99213; C9803; G0463

== ENCOUNTER → 2021-11-10 13:15 | Outpatient (CLI) | payer MEDICARE, OTHER, SELFPAY ==
--- NOTE | ~2021-11-10 | XR_ITS ---
XR hip RT min 2V 11/10/2021 13:35 Indication: Right hip pain Procedure: 3 views right hip Comparison: No prior studies for comparison. Findings: There is mild osteoarthritis of the right hip. There is deformity of the ilium laterally, p ossibly related to previous bone marrow donor site. No acute fracture or traumatic malalignment. Surr ounding osseous structures and soft tissues are unremarkable. Impression: 1: Mild osteoarthritis of the right hip. Reviewed, dictated and finalized at location B. ER TECHNICIAN Impression: 1: Mild osteoarthritis of the right hip.
== END ==
PROVIDERS: PCP Family Medicine; Visit Provider Family Medicine
DX: M16.11 Unilateral primary osteoarthritis, right hip (principal)
CPT/HCPCS: 73502

== ENCOUNTER 2022-02-06 09:21 | Outpatient (CLI) | payer MEDICARE, OTHER, SELFPAY ==
--- NOTE | ~2022-02-06 | MR_ITS ---
EXAMINATION: MR brain/brain stem wo con DATE: 02/06/2022 10:09 INDICATION: Short-term memory loss. TECHNIQUE: Magnetic resonance imaging (MRI) of the brain and brainstem was performed without intraven ous contrast. COMPARISON: Brain MRI 01/16/2016 FINDINGS: There are scattered areas of nonspecific increased T2-weighted signal intensity in the cere bral white matter and meera. There is no intracranial hemorrhage, acute infarction, or abnormal intrac ranial mass lesion. The ventricles are normal in size. The orbits are normal. There is mild mucosal t hickening in the paranasal sinuses. The mastoid air cells are normal. IMPRESSION: 1. Worsened moderate nonspecific cerebral white matter disease and pontine disease, which likely repr esents chronic small vessel ischemic disease. Reviewed, dictated and finalized at location A. IMPRESSION: 1. Worsened moderate nonspecific cerebral white matter disease and pontine dise ase, which likely represents chronic small vessel ischemic disease.
== END 2022-02-06 09:22 | disposition home or self-care (01) ==
PROVIDERS: PCP Family Medicine; Visit Provider Family Medicine
DX: R41.3 Other amnesia (principal); R93.0 Abnormal findings on diagnostic imaging of skull and head, not elsewhere classified
CPT/HCPCS: 70551

== ENCOUNTER 2022-03-10 21:40 | Emergency (ER) | payer MEDICARE, OTHER, SELFPAY ==
--- NOTE | ~2022-03-10 | XR_ITS ---
XR chest 2V DATE: 03/10/2022 22:23 INDICATION: [Chest pain, shortness of breath TECHNIQUE: PA and lateral views COMPARISON: 10/21/2020 2 view chest FINDINGS: There is mild discoid atelectasis or scarring of the lingula. The lungs are clear of infilt rate or consolidation. No pleural effusion or pulmonary vascular congestion or pneumothorax. Normal heart size. No hilar or mediastinal enlargement. There is aortic calcification and mild unfolding. Diffuse osteopenia. There is dextroscoliosis of the thoracic spine. IMPRESSION: Mild discoid atelectasis or scarring in the lingula; otherwise no active cardiopulmonary disease Aortic calcification Osteopenia Reviewed, dictated and finalized at location A. IMPRESSION: Mild discoid atelectasis or scarring in the lingula; otherwise no a ctive cardiopulmonary disease Aortic calcification Osteopenia
--- NOTE | ~2022-03-10 | CT_ITS ---
EXAMINATION: CTA chest PE protocol DATE: 03/10/2022 23:06 INDICATION: Left pleuritic chest pain, shortness of breath TECHNIQUE: Computed tomography angiography (CTA) of the chest was performed with 100 mL Omnipaque-350 intravenous contrast timed to evaluate the pulmonary arteries. Coronal maximum intensity projection 3D-reconstructions were created by the technologist. Automated exposure control and iterative reconst ruction technique were employed. Exam dose: 743.31 mGy-cm total exam DLP. COMPARISON: 03/10/2022 PA and lateral chest FINDINGS: There is diagnostic contrast enhancement of the pulmonary arteries and no evidence of pulmo nary embolism. No thoracic aortic aneurysm. There is aortic and coronary artery atherosclerotic calcification. No pe ricardial or pleural effusion. No hilar or mediastinal mass lesion or lymphadenopathy. Minimal infiltrate or atelectasis in the lingula and lower lobes. Approximately 1.8 cm exophytic upper pole right renal cyst. Normal morphology of the adrenal glands. Small sliding hiatal hernia IMPRESSION: No evidence of pulmonary malignancy Reviewed, dictated and finalized at location A.
--- NOTE | 2022-03-10 21:41 | ECG_ITS ---
Measurements Intervals [place] Rate: 69 P: 0 [place]: 176 QRS: 2 QRSD: 91 T: 25 QT: 418 QTc: 450 Interpretive Statements SINUS RHYTHM DELAYED PRECORDIAL R/S TRANSITION BASELINE ARTIFACT- I, II, III, AVR, AVL, AVF, V1-V6 BORDERLINE ECG Electronically Signed On 03-11-2022 7:11:25 CDT by Rudy Mo D.O.
[2022-03-10 21:49] VITALS: BP 158/83; PULSE 68; RESP 20; TEMP 36.6; O2SAT 98
[2022-03-10 22:04] LABS: Basophils Absolute Auto 0.1 K/mm3 (0.0-0.1); Basophils Percent Auto 0.8 % (0.2-1.2); Eosinophils Absolute Auto 0.2 K/mm3 (0-0.3); Eosinophils Percent Auto 2.5 % (0-4.4); Hematocrit 41.3 % (37.0-47.0); Hemoglobin 13.8 g/dL (12.0-15.0); Immature Granulocyte Absolute 0.01 K/mm3 (0.00-0.031); Immature Granulocyte Percent A 0.2 % (0-0.5); Lymphocytes Absolute Auto 1.52 K/mm3 (0.9-3.2); Lymphocytes Percent Auto 25.2 % (18.3-44.2); Mean Corpuscular HGB Conc 33.4 g/dl (32-36); Mean Corpuscular Hemoglobin 32.5 pg (26-34); Mean Corpuscular Volume 97.4 fl (80-100); Mean Platelet Volume 10.9 fl (7.4-10.4); Monocytes Absolute Auto 0.6 K/mm3 (0.1-0.6); Monocytes Percent Auto 10.6 % (2.6-8.5); Neutrophils Absolute Auto 3.7 K/mm3 (1.3-6.7); Neutrophils Percent Auto 60.7 % (45.5-73.1); Platelet Count Result 156 k/mm3 (150-375); Red Blood Count 4.24 M/mm3 (4.2-5.4); Red Cell Distribution Width 12.6 % (11.5-14.5)
[2022-03-10 22:14] LABS: Alanine Aminotransferase 18 U/L (6-35); Albumin Level 4.4 g/dL (3.5-5.1); Alkaline Phosphatase 83 U/L (38-126); Anion Gap 8 mmol/L (8-16); Aspartate Amino Transferase 27 U/L (14-36); Bilirubin,Total 0.8 mg/dL (0.2-1.3); Blood Urea Nitrogen 20 mg/dL (7-17); Calcium 8.7 mg/dL (8.4-10.2); Carbon Dioxide 23 mmol/L (22-30); Chloride 105 mmol/L (98-107); Estimated CRCL calculation 50 ml/min; Estimated Glomerular Filt Rate 55; Glucose 138 mg/dL (65-110); Lipase 53 U/L (23-300); Prothrombin Time 13.1 Seconds (11.1-14.7); Sodium 136 mmol/L (137-145)
[2022-03-10 22:25] LABS: Troponin I < 0.012 ng/mL (0.000-0.034)
--- NOTE | 2022-03-10 22:43 | ED.CHESTPAIN ---
HPI - Chest Pain General Chief Complaint: Chest Pain Stated Complaint: real bad chest pains Time Seen by Provider: 03/10/22 22:27 Source: patient History of Present Illness HPI narrative: Patient presents with left-sided chest pain. She reports she had intermittent chest pain for approximately 2 months tonight her symptoms increase and have been consistent. Her pain is sharp on the left side of her chest worse with deep inspiration. She initially saw her primary care doctor and was scheduled outpatient follow-up with cardiology. Has not until April should concern given the increase in her symptoms so she came to the ER for further evaluation. Does report shortness of breath denies any lightheadedness. Her symptoms are worse again with deep inspiration and with physical activity. She has any nausea vomiting or diarrhea. She denies any fevers, cough, congestion. She denies any prior history of blood clots denies any recent hospitalizations or surgeries. Related Data Home Medications Medication Instructions Recorded Confirmed alprazolam 1 mg tablet 1 mg PO ,12 PRN Anxiety 10/30/19 10/19/20 atorvastatin 40 mg tablet 40 mg PO HS 10/30/19 10/19/20 citalopram 40 mg tablet 40 mg PO HS 10/30/19 10/19/20 telmisartan 40 mg tablet tablet 03/10/22 Allergies Allergy/AdvReac Type Severity Reaction Status Date / Time Penicillins Allergy Unknown Rash Verified 03/10/22 22:32 Review of Systems Review of Systems: CONSTITUTIONAL: Denies fever, chills, or sweats. EYES: Denies visual changes, redness, or discharge. ENT: Denies rhinorrhea, congestion, sore throat, or otalgia. CARDIOVASCULAR: Denies palpitations, or edema. RESPIRATORY: Denies cough GASTROINTESTINAL: Denies abdominal pain, nausea, vomiting, or diarrhea. GENITOURINARY: Denies dysuria or hematuria. SKIN: Denies rash or itching. MUSCULOSKELETAL: Denies back pain, joint pain, or myalgia. NEUROLOGIC: Denies headache, numbness, dizziness, or weakness. PSYCHIATRIC: Denies anxiety or depression. All systems reviewed & are unremarkable except as noted in HPI and below PMFSH Past Medical History Medical History CAD (coronary artery disease) Chronic back pain Depression Diabetes mellitus, type II HLD (hyperlipidemia) HTN (hypertension) Hx of hepatitis C Treated with interferon Sleep apnea TIA (transient ischemic attack) 1999 Surgical History Surgical History H/O gastric bypass Lap band procedure H/O left wrist surgery H/O right wrist surgery Hx of cholecystectomy Hx of hysterectomy S/P cervical spinal fusion Family History Family History Mother Diabetes mellitus Hypertension Cerebrovascular accident Father Brain tumor Social History Social History Social History: The patient lives with a roommate. She has 1 child which is her daughter. Her daughter is a durable power outboard motors experimental mechanic for healthcare. The patient desires to be a full code. 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 Smoking status: Never smoker Alcohol intake: never Substance use: never Gender identity (if verbalized by the patient): Female Spiritual care concerns: No Exam Narrative: GENERAL: Well-appearing, well-nourished, and in no acute distress. HEAD: Normocephalic, atraumatic. EYES: PERRLA and EOMI. ENT: Nares clear, no rhinorrhea or epistaxis. Mucous membranes moist. NECK: Supple. No masses. No JVD CHEST: Clear to auscultation. No respiratory distress. No wheezes rales or rhonchi HEART: Regular rate and rhythm. No murmur heard. Normal peripheral pulses. ABDOMEN: Soft, nontender, nondistended, normal active bowel sounds. EXTREMITIES: Normal range of motion. No edema. SKIN: Warm, dry, no rash. NEURO: No focal deficit
[2022-03-10 22:46] VITALS: O2SAT 98
--- NOTE | 2022-03-10 22:56 | PC.NURSE ---
Patient taken to CT via stretcher.
[2022-03-10] MEDS: ACETAMINOPHEN 500 MG TABLET 1000 MG PO (23:41)
[2022-03-11 00:52] VITALS: BP 159/98; PULSE 57; RESP 18; O2SAT 97
== END 2022-03-11 00:54 | disposition home or self-care (01) ==
PROVIDERS: Emergency Provider Emergency Medicine; PCP Family Medicine
DX: R07.9 Chest pain, unspecified (principal); I25.10 Atherosclerotic heart disease of native coronary artery without angina pectoris; E11.9 Type 2 diabetes mellitus without complications; E78.5 Hyperlipidemia, unspecified; I10 Essential (primary) hypertension; G47.30 Sleep apnea, unspecified; Z86.19 Personal history of other infectious and parasitic diseases; Z86.73 Personal history of transient ischemic attack (TIA), and cerebral infarction without residual deficits; Z98.84 Bariatric surgery status; Z98.1 Arthrodesis status; R94.31 Abnormal electrocardiogram [ECG] [EKG]; M85.88 Other specified disorders of bone density and structure, other site; I70.0 Atherosclerosis of aorta
CPT/HCPCS: 36415; 71046; 71275; 80053; 83690; 84484; 85025; 85610; 85730; 93005; 99284; A9270; Q9967

== ENCOUNTER 2022-05-11 06:42 | Outpatient (CLI) | payer MEDICARE, OTHER, SELFPAY ==
[2022-05-11 07:18] LABS: Basophils Percent Auto 0.9 % (0.2-1.2); Eosinophils Absolute Auto 0.2 K/mm3 (0-0.3); Eosinophils Percent Auto 4.1 % (0-4.4); Hematocrit 39.6 % (37.0-47.0); Hemoglobin 12.9 g/dL (12.0-15.0); Immature Granulocyte Absolute 0.01 K/mm3 (0.00-0.031); Immature Granulocyte Percent A 0.2 % (0-0.5); Immature Platelet Fraction Pct 5.1 % (0.9-11.2); Lymphocytes Absolute Auto 1.23 K/mm3 (0.9-3.2); Lymphocytes Percent Auto 26.3 % (18.3-44.2); Mean Corpuscular HGB Conc 32.6 g/dl (32-36); Mean Corpuscular Hemoglobin 32.1 pg (26-34); Mean Corpuscular Volume 98.5 fl (80-100); Mean Platelet Volume 10.8 fl (7.4-10.4); Monocytes Absolute Auto 0.6 K/mm3 (0.1-0.6); Neutrophils Absolute Auto 2.6 K/mm3 (1.3-6.7); Neutrophils Percent Auto 56.5 % (45.5-73.1); Platelet Count Result 129 k/mm3 (150-375); Red Blood Count 4.02 M/mm3 (4.2-5.4); Red Cell Distribution Width 12.4 % (11.5-14.5); White Blood Count 4.7 K/mm3 (4.5-10.0)
--- NOTE | 2022-05-11 07:49 | ECHO_ITS ---
Patient Info Name: Melvina Paige Age: 71 years : 1950 Gender: Female Ht: 64 in Wt: 215 lbs BSA: 2.14 m2 HR: 53 bpm BP: 131 / 81 mmHg Technical Quality: Good Exam Date: 05/11/2022 8:30 AM Exam Location: [facility] Patient Status: Outpatient Admit Date: 05/11/2022 Staff Ordering Physician: Valdemar Pimentel MD Retail Sales Associate Bilingual: Marla Calzada RDCS Attending Provider: Valdemar Pimentel MD Exam Type: CA echo doppler color flow Study Info Indications I10 - Essential (primary) hypertension Complete two-dimensional, color flow and Doppler transthoracic echocardiogram is performed. Summary 1. Complete two-dimensional, color flow and Doppler transthoracic echocardiogram is performed. 2. Left ventricular chamber dimension is normal. 3. Left ventricular systolic function is normal, estimated at 60-65%. 4. The left ventricular diastolic function is grade II diastolic dysfunction. 5. E/e' 16 is elevated. 6. Global longitudinal strain is normal at -17.1%. 7. Left atrial chamber dimension is mildly enlarged. 8. There is trace aortic valve regurgitation. 9. The mitral valve has mildly calcified annulus. 10. There is mild to moderate mitral valve regurgitation. 11. There is mild tricuspid valve regurgitation. 12. No pulmonary hypertension, estimated pulmonary arterial systolic pressure is 36 mmHg. Left Ventricle E/e' 16 is elevated. Global longitudinal strain is normal at -17.1%. Left ventricular chamber dimension is normal. Left ventricular systolic function is normal, estimated at 60-65%. The left ventricular diastolic function is grade II diastolic dysfunction. Right Ventricle Right ventricular systolic function is normal and with normal TAPSE 2.0 cm. Right ventricular chamber dimension is normal. Left Atria Left atrial chamber dimension is mildly enlarged. Right Atria Right atrial chamber dimension is normal. Aortic Valve The aortic valve is trileaflet. There is no aortic valve stenosis. There is trace aortic valve regurgitation. Pulmonic Valve There is no pulmonic regurgitation. Mitral Valve The mitral valve has mildly calcified annulus. There is no mitral valve stenosis. There is mild to moderate mitral valve regurgitation. Tricuspid Valve There is mild tricuspid valve regurgitation. No pulmonary hypertension, estimated pulmonary arterial systolic pressure is 36 mmHg. Pericardium/Pleural There is no pericardial effusion. Inferior Vena Cava Normal inferior vena cava with >50% collapse upon inspiration consistent with normal right atrial pressure, 5 mmHg. Aorta The aortic root size at the sinus of Valsalva is normal. Left Ventricular Outflow Tract Name Value Normal LVOT 2D LVOT Diameter 2.0 cm LVOT Doppler LVOT Peak Gradient 5 mmHg LVOT Mean Gradient 3 mmHg LVOT VTI 25 cm LVOT VTI/AV VTI Ratio 0.7 LVOT Stroke Volume 76 ml LVOT CO 4.2 l/min LVOT CI 2.0 l/
[2022-05-11 08:27] LABS: Alanine Aminotransferase 17 U/L (6-35); Albumin Level 3.7 g/dL (3.5-5.1); Alkaline Phosphatase 74 U/L (38-126); Anion Gap 10 mmol/L (8-16); Aspartate Amino Transferase 23 U/L (14-36); Bilirubin,Total 0.6 mg/dL (0.2-1.3); Blood Urea Nitrogen 14 mg/dL (7-17); Calcium 8.9 mg/dL (8.4-10.2); Carbon Dioxide 23 mmol/L (22-30); Chloride 105 mmol/L (98-107); Estimated Glomerular Filt Rate > 60; Glucose 133 mg/dL (65-110); Potassium 3.7 mmol/L (3.4-5.0); Sodium 138 mmol/L (137-145); T4 Thyroxine 6.41 ug/dL (5.53-11.0)
[2022-05-11 08:56] LABS: Folic Acid 7.5 ng/mL (2.76->20)
--- NOTE | 2022-05-21 09:34 | WPDNEUROLOGY ---
Neurology EEG Report General Information Date of Study: 05/11/22 TEST EEG DIAGNOSIS dizziness CONDITION OF RECORDING awake drowsy and sleep EEG NUMBER [id number] CLINICAL HISTORY patient reported for about the last year she had been having dizziness with headaches and issues with her memory. EEG DESCRIPTION Background rhythm consists of low-voltage 15 to 21 hertz per 2nd beta activity admixed with multiple movement artifacts. Bilateral symmetrical sleep activity seen during sleep. Intermittent low-voltage 8 to 10 hertz per 2nd alpha activity seen posteriorly during drowsiness. Hyperventilation not done. Photic stimulation produced normal drive. Non paroxysmal. Nonfocal. Nonlateralizing. IMPRESSION No significant abnormalities noted
== END 2022-05-11 06:43 | disposition home or self-care (01) ==
PROVIDERS: PCP Family Medicine; Visit Provider Psychiatry & Neurology Neurology
DX: R42 Dizziness and giddiness (principal); F32.9 Major depressive disorder, single episode, unspecified; I10 Essential (primary) hypertension; I36.1 Nonrheumatic tricuspid (valve) insufficiency; I34.0 Nonrheumatic mitral (valve) insufficiency
CPT/HCPCS: 36415; 80053; 82607; 82746; 84436; 85025; 85055; 93306; 95816

== ENCOUNTER 2023-02-22 22:45 | Emergency (ER) | payer MEDICARE, OTHER, SELFPAY ==
[2023-02-22 22:46] VITALS: BP 212/85; PULSE 65; RESP 18; TEMP 36.6; O2SAT 100
[2023-02-22 22:52] VITALS: PULSE 63; RESP 30
[2023-02-22 23:52] VITALS: BP 128/77; PULSE 69; RESP 15; O2SAT 98
--- NOTE | 2023-02-23 00:12 | PC.NURSE ---
Pt reports her headache is gone, her blood pressure is better, and she wants to go home. Pt has still not been evaluated by ER provider. Both ER providers notified.
--- NOTE | 2023-02-23 00:21 | ED.GENADULT ---
HPI - General Adult General Chief complaint: Headache Stated complaint: headache Time Seen by Provider: 02/23/23 00:14 History of Present Illness HPI narrative: This is a 72-year-old female presenting with a chief complaint of hypertension and headache. The patient went saw her primary care that physician this morning and they spent some time talking about her elevated blood pressures. At that time was 180 over 100. She did not have a headache at that time. When she went home she did bite started to feel a pressure across her forehead. This is her typical headache she has had many times in the past. after she had a headache she checked her blood pressure multiple times and she noticed that it continued to increase. She does not have chest pain difficulty breathing or neurologic symptoms. She then came to the hospital to be evaluated. She took ibuprofen before she arrived and at the time of my interview her headache has resolved and she would like to go home. Related Data Home Medications Medication Instructions Recorded Confirmed alprazolam 1 mg tablet 1 mg PO , PRN Anxiety 10/30/19 10/19/20 atorvastatin 40 mg tablet 40 mg PO HS 10/30/19 10/19/20 citalopram 40 mg tablet 40 mg PO HS 10/30/19 10/19/20 telmisartan 40 mg tablet tablet 03/10/22 Allergies Allergy/AdvReac Type Severity Reaction Status Date / Time Penicillins Allergy Unknown Rash Verified 04/10/22 13:40 [facility] Past Medical History Medical History CAD (coronary artery disease) Chronic back pain Depression Diabetes mellitus, type II HLD (hyperlipidemia) HTN (hypertension) Hx of hepatitis C Treated with interferon Sleep apnea TIA (transient ischemic attack) 1999 Surgical History Surgical History H/O gastric bypass Lap band procedure H/O left wrist surgery H/O right wrist surgery Hx of cholecystectomy Hx of hysterectomy S/P cervical spinal fusion Family History Family History Mother Diabetes mellitus Hypertension Cerebrovascular accident Father Brain tumor Social History Social History Social History: The patient lives with a roommate. She has 1 child which is her daughter. Her daughter is a durable power consumer attorney for healthcare. The patient desires to be a full code. 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 Smoking status: Never smoker Alcohol intake: never Substance use: never Gender identity (if verbalized by the patient): Female Spiritual care concerns: No Exam Narrative: APPEARANCE: No apparent distress. Head: atraumatic. EYES: EOMI, NOSE: Atraumatic NECK: Trachea midline RESPIRATORY: No increased rate of breathing Clear to auscultation CARDIOVASCULAR: RRR, no peripheral edema ABDOMINAL: Non-distended MUSCULOSKELETAl: No obvious deformities NEURO: Alert. Cranial nerves 2-12 grossly intact. Sensation light touch, motor function cerebellar function intact for 4 extremities. Gait exam was normal. SKIN:: Warm, dry. Normal color PSYCHIATRIC: Normal affect Course Vital Signs Vital signs: Vital Signs Temperature 97.8 F 02/22/23 22:46 Pulse Rate 65 02/22/23 22:46 Respiratory Rate 18 02/22/23 22:46 Blood Pressure 212/85 H 02/22/23 22:46 Pulse Oximetry 100 02/22/23 22:46 Oxygen Delivery Room Air 02/22/23 22:46 Temperature 97.8 F 02/22/23 22:46 Pulse Rate 69 02/22/23 23:52 Respiratory Rate 15 02/22/23 23:52 Blood Pressure 128/77 02/22/23 23:52 Pulse Oximetry 98 02/22/23 23:52 Oxygen Delivery Room Air 02/22/23 22:46 Medical Decision Making [facility] Narrative Medical decision making narrative: -Presentation: 72-year-old female coming in with headache and concerns about her blood pressure. Neurologi
[2023-02-23 00:36] VITALS: BP 148/80; PULSE 77; RESP 18; O2SAT 97
== END 2023-02-23 00:36 | disposition home or self-care (01) ==
PROVIDERS: Emergency Provider Emergency Medicine; PCP Family Medicine
DX: R51.9 Headache, unspecified (principal); I10 Essential (primary) hypertension; I25.10 Atherosclerotic heart disease of native coronary artery without angina pectoris; E11.9 Type 2 diabetes mellitus without complications; E78.5 Hyperlipidemia, unspecified; G47.30 Sleep apnea, unspecified; Z98.84 Bariatric surgery status; Z86.19 Personal history of other infectious and parasitic diseases; Z86.73 Personal history of transient ischemic attack (TIA), and cerebral infarction without residual deficits; Z90.49 Acquired absence of other specified parts of digestive tract; Z90.710 Acquired absence of both cervix and uterus; Z98.1 Arthrodesis status
CPT/HCPCS: 99283

== ENCOUNTER 2023-03-20 14:00 | Outpatient (CLI) | payer MEDICARE, OTHER, SELFPAY ==
--- NOTE | ~2023-03-20 | XR_ITS ---
XR hip RT min 2V DATE: 03/20/2023 14:28 INDICATION: Right hip and left knee joint pain TECHNIQUE: AP and lateral views of the right hip COMPARISON: 11/10/2021 right hip FINDINGS: No fracture, dislocation, avascular necrosis or bone destruction of the right hip is detect ed. Right hip joint space appears relatively well preserved. The pubic symphysis and right sacroiliac joint and included portion of the left sacrum at joint are i ntact. IMPRESSION: No significant abnormality of the right hip Reviewed, dictated and finalized at location []
--- NOTE | ~2023-03-20 | XR_ITS ---
XR knee LT 3V DATE: 03/20/2023 14:28 INDICATION: Left knee joint pain TECHNIQUE: AP, lateral, sunrise views COMPARISON: None FINDINGS: There is enthesopathy of the patella at the insertions of the quadriceps and patellar tendo ns. No fracture or dislocation or joint effusion. No periosteal reaction or bone destruction. No radiopaq ue intra-articular loose body or, calcinosis. There is moderate loss of height of the medial compartment joint space and minimal periarticular spur ring at the medial tibial plateau, consistent with osteoarthritis. IMPRESSION: Moderate medial compartment osteoarthritis Reviewed, dictated and finalized at location []
== END 2023-03-20 14:01 | disposition home or self-care (01) ==
PROVIDERS: PCP Family Medicine; Visit Provider Family Medicine
DX: M25.551 Pain in right hip (principal); M17.12 Unilateral primary osteoarthritis, left knee
CPT/HCPCS: 73502; 73562

== ENCOUNTER 2023-05-12 10:09 | Emergency (ER) | payer MEDICARE, OTHER, SELFPAY ==
[2023-05-12 10:21] VITALS: BP 121/76; PULSE 78; RESP 16; TEMP 36.5; O2SAT 97
--- NOTE | 2023-05-12 10:47 | ED.EAR ---
HPI - Ear Problem General Chief complaint: Ear Stated complaint: water in left ear Source: patient and RN notes reviewed History of Present Illness HPI Narrative: 72-year-old female presents to urgent care with complaints loss of hearing in her left ear. Patient states she was swimming yesterday and feels like she cannot get out the water out. Patient denies any ear pain, congestion, sore throat fevers chills or dizziness. Patient states she has tried shaking water out of her ear without relief. Related Data Home Medications Medication Instructions Recorded Confirmed alprazolam 1 mg tablet 1 mg PO 09,12 PRN Anxiety 10/30/19 10/19/20 atorvastatin 40 mg tablet 40 mg PO HS 10/30/19 10/19/20 citalopram 40 mg tablet 40 mg PO HS 10/30/19 10/19/20 telmisartan 40 mg tablet tablet 03/10/22 dicyclomine 10 mg capsule mg 05/12/23 diphenoxylate-atropine 2.5 tablet 05/12/23 mg-0.025 mg tablet duloxetine 30 mg capsule,delayed mg PO 05/12/23 release folic acid 1 mg tablet 05/12/23 Allergies Allergy/AdvReac Type Severity Reaction Status Date / Time Penicillins Allergy Unknown Rash Verified 05/12/23 10:17 Review of Systems Review of Systems: CONSTITUTIONAL: Denies fever, chills, or sweats. EYES: Denies visual changes, redness, or discharge. ENT: Loss of hearing in the left ear CARDIOVASCULAR: Denies chest pain, palpitations, or edema. RESPIRATORY: Denies cough or dyspnea. GASTROINTESTINAL: Denies abdominal pain, nausea, vomiting, or diarrhea. GENITOURINARY: Denies dysuria or hematuria. SKIN: Denies rash or itching. MUSCULOSKELETAL: Denies back pain, joint pain, or myalgia. NEUROLOGIC: Denies headache, numbness, or weakness. Pertinent positives per HPI. [facility] Past Medical History Medical History CAD (coronary artery disease) Chronic back pain Depression Diabetes mellitus, type II HLD (hyperlipidemia) HTN (hypertension) Hx of hepatitis C Treated with interferon Sleep apnea TIA (transient ischemic attack) 1999 Surgical History Surgical History H/O gastric bypass Lap band procedure H/O left wrist surgery H/O right wrist surgery Hx of cholecystectomy Hx of hysterectomy S/P cervical spinal fusion Family History Family History Mother Diabetes mellitus Hypertension Cerebrovascular accident Father Brain tumor Social History Social History Social History: The patient lives with a roommate. She has 1 child which is her daughter. Her daughter is a durable power back up worker for healthcare. The patient desires to be a full code. 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 Smoking status: Never smoker Alcohol intake: never Substance use: never Gender identity (if verbalized by the patient): Female Spiritual care concerns: No Comments At the time of my signature, I reviewed and agree with the nursing past medical, surgical, social, and family history. There is no relevant family history pertinent to the patient complaint. Exam Narrative: GENERAL: This is a well-nourished, well-developed patient, in no apparent distress. HEAD: normocephalic, atraumatic. EYES: Sclera clear/white. Vision is grossly intact. EARS: right-sided External ear normal, auditory canals clear and without drainage, TMs normal without perforation. Hearing grossly intact. left ear and noted to have a cerumen impaction. NOSE: External nose normal with no obvious nasal discharge, nares without redness, no rhinorrhea. THROAT: Mucous membranes moist, posterior pharynx clear. NECK: Neck supple, non-tender without lymphadenopathy, masses or thyromegaly. CARDIOVASCULAR: Regular rate and rhythm without murmurs, gallops, or rubs. RESPIRATORY: Clear to auscultation. B
== END 2023-05-12 10:56 | disposition home or self-care (01) ==
PROVIDERS: Emergency Provider Nurse Practitioner Family; PCP Family Medicine
DX: H61.22 Impacted cerumen, left ear (principal); I25.10 Atherosclerotic heart disease of native coronary artery without angina pectoris; E11.9 Type 2 diabetes mellitus without complications; E78.5 Hyperlipidemia, unspecified; I10 Essential (primary) hypertension; Z86.73 Personal history of transient ischemic attack (TIA), and cerebral infarction without residual deficits; Z98.84 Bariatric surgery status
CPT/HCPCS: 69209; 99213; G0463

== ENCOUNTER 2023-11-21 15:42 | Emergency (ER) | payer MEDICARE, SELFPAY ==
--- NOTE | ~2023-11-21 | XR_ITS ---
EXAMINATION: XR chest 1V portable DATE: 11/21/2023 17:04 INDICATION: Pleuritic chest pain. TECHNIQUE: A single frontal view of the chest was obtained. COMPARISON: Chest 2 views 03/10/2022 FINDINGS: There is mild atelectasis in left lower lung zone. No pleural effusion or pneumothorax. The heart size is normal. IMPRESSION: 1. Mild atelectasis in left lower lung zone. Reviewed, dictated and finalized at location E. ALT TAMPER
--- NOTE | ~2023-11-21 | CT_ITS ---
EXAMINATION: CTA abdomen pelvis DATE: 11/21/2023 19:01 INDICATION: Right flank pain. TECHNIQUE: Computed tomographic angiography (CTA) of the abdomen and pelvis was performed with 100 mL Omnipaque-350 intravenous contrast. Automated exposure control and iterative reconstruction techniqu e were employed. The dose-length product was 1299.95 mGy-cm. Maximum intensity projection 3D-reconstr uctions of the aorta and other arteries were constructed by the technologist on a separate workstatio n. COMPARISON: CT abdomen and pelvis 11/21/2023 FINDINGS: The visualized portions of the lung bases demonstrate mild atelectasis and mild chronic roshni g disease. No pleural effusion. The heart size is normal. There are coronary artery calcifications. N o pericardial effusion. The liver is normal. The gallbladder is absent. The spleen, pancreas, adrenal glands, and left kidney are normal. There is a 3 mm stone in right kidney. There is a 2.0 cm cyst in right kidney. There is a left supraumbilical ventral hernia containing fat. There is an umbilical he rnia containing fat. There are no dilated loops of bowel. The appendix is normal. There are no pathol ogically enlarged lymph nodes. There is no free intraperitoneal fluid. Aortic atherosclerosis is note d. There is no significant stenosis of celiac axis, superior mesenteric artery, the renal arteries, o r inferior mesenteric artery. There is moderate thoracic and lumbar spondylosis. IMPRESSION: 1. Umbilical hernia and left supraumbilical ventral hernia containing fat. 2. Aortic atherosclerosis. No aneurysm or dissection. I called this result to Dr. Hansen at 7:03 PM. Reviewed, dictated and finalized at location E. YSIS SPECIALIST IMPRESSION: 1. Umbilical hernia and left supraumbilical ventral hernia containing fat. 2. Aortic atherosclerosis. No aneurysm or dissection. I called this result to Claire Hansen at 7:03 PM.
--- NOTE | ~2023-11-21 | CT_ITS ---
EXAMINATION: CT abdomen pelvis wo con DATE: 11/21/2023 18:06 INDICATION: Right flank pain. TECHNIQUE: Computed tomography (CT) of the abdomen and pelvis was performed without intravenous contr ast. Automated exposure control and iterative reconstruction technique were employed. The dose-length product was 1192.54 mGy-cm. COMPARISON: CT abdomen and pelvis 07/04/2018 FINDINGS: The visualized portions of the lung bases demonstrate mild atelectasis and mild chronic roshni g disease. No pleural effusion. The heart size is normal. There are coronary artery calcifications. N o pericardial effusion. The liver is normal. The gallbladder is absent. The spleen, pancreas, adrenal glands, and left kidney are normal. There is a 3 mm stone in right kidney. There is a 2.0 cm cyst in right kidney. There is a left supraumbilical ventral hernia containing fat. There is an umbilical he rnia containing fat. There are no dilated loops of bowel. The appendix is normal. There are no pathol ogically enlarged lymph nodes. There is no free intraperitoneal fluid. There is moderate thoracic and lumbar spondylosis. IMPRESSION: 1. Umbilical hernia and left supraumbilical ventral hernia containing fat. I called this result to Dr Yola Hansen at 6:31 PM. Reviewed, dictated and finalized at location E. S TENDER IMPRESSION: 1. Umbilical hernia and left supraumbilical ventral hernia containing fat. I ca lled this result to Dr. Hansen at 6:31 PM.
[2023-11-21 15:59] VITALS: BP 151/83; PULSE 74; RESP 16; TEMP 36.7; O2SAT 98
--- NOTE | 2023-11-21 16:50 | ECG_ITS ---
Measurements Intervals [place] Rate: 70 P: 25 ND: 158 QRS: 11 QRSD: 90 T: 30 QT: 415 QTc: 451 Interpretive Statements SINUS RHYTHM NORMAL ELECTROCARDIOGRAM COMPARED TO ECG 03/10/2022 21:45:45 NO SIGNIFICANT CHANGES Electronically Signed On 11-22-2023 7:07:49 [employer] by Rohan Perea M.D.
[2023-11-21 17:13] LABS: Basophils Absolute Auto 0.1 K/mm3 (0.0-0.1); Basophils Percent Auto 0.6 % (0.2-1.2); Eosinophils Absolute Auto 0.1 K/mm3 (0-0.3); Eosinophils Percent Auto 1.3 % (0-4.4); Hemoglobin 14.7 g/dL (12.0-15.0); Immature Granulocyte Absolute 0.03 K/mm3 (0.00-0.031); Immature Granulocyte Percent A 0.4 % (0-0.5); Immature Platelet Fraction Pct 4.1 % (0.9-11.2); Lymphocytes Absolute Auto 2.33 K/mm3 (0.9-3.2); Lymphocytes Percent Auto 30.1 % (18.3-44.2); Mean Corpuscular HGB Conc 33.4 g/dl (32-36); Mean Corpuscular Hemoglobin 32.3 pg (26-34); Mean Corpuscular Volume 96.7 fl (80-100); Mean Platelet Volume 10.2 fl (7.4-10.4); Monocytes Absolute Auto 0.7 K/mm3 (0.1-0.6); Monocytes Percent Auto 8.7 % (2.6-8.5); Neutrophils Absolute Auto 4.6 K/mm3 (1.3-6.7); Neutrophils Percent Auto 58.9 % (45.5-73.1); Platelet Count Result 136 k/mm3 (150-375); Red Blood Count 4.55 M/mm3 (4.2-5.4); Red Cell Distribution Width 12.3 % (11.5-14.5); White Blood Count 7.7 K/mm3 (4.5-10.0)
[2023-11-21 17:21] LABS: Alanine Aminotransferase 27 U/L (6-35); Albumin Level 4.2 g/dL (3.5-5.1); Alkaline Phosphatase 92 U/L (38-126); Anion Gap 10 mmol/L (8-16); Aspartate Amino Transferase 42 U/L (14-36); Bilirubin,Total 1.2 mg/dL (0.2-1.3); Blood Urea Nitrogen 14 mg/dL (7-17); Calcium 9.5 mg/dL (8.4-10.2); Carbon Dioxide 21 mmol/L (22-30); Chloride 100 mmol/L (98-107); Estimated CRCL calculation 62 ml/min; Estimated Glomerular Filt Rate > 60; Glucose 112 mg/dL (65-110); Lipase 36 U/L (23-300); Magnesium 2.1 mg/dL (1.6-2.3); Potassium 3.8 mmol/L (3.4-5.0); Sodium 131 mmol/L (137-145)
[2023-11-21] MEDS: MORPHINE SULFATE (*CRX) 4 MG/ML INJ IV PUSH (17:22)
[2023-11-21] MEDS: SODIUM CHLORIDE 0.9% IV 1,000 ML 999 ML IV CONT (17:23)
[2023-11-21 17:33] LABS: D Dimer < 0.27 ug/mL (<0.48)
[2023-11-21 17:34] LABS: Troponin I < 0.012 ng/mL (0.000-0.034)
--- NOTE | 2023-11-21 17:37 | ED.GENADULT ---
HPI - General Adult General Chief complaint: Unspecified Stated complaint: pain right side back Time Seen by Provider: 11/21/23 16:50 Source: patient Limitations: no limitations History of Present Illness HPI narrative: Patient is a 73-year-old female presents to the emergency department complaining of right flank pain. Patient states the pain is been present for the past couple days, is worse when she takes a big deep breath in, no history is pain in the past, describes it as stabbing, sometimes radiates around to the front of her abdomen, has not tried anything for the pain, has not noticed anything making it better, describes the pain as constant and waxing and waning. Patient denies any dysuria, hematuria, urinary frequency, urinary urgency, history kidney stones, recent injuries, recent illness, recent strenuous activity, cough, difficulty breathing, chest pain, fever, melena, hematochezia, diarrhea, constipation, numbness, weakness, rash. Related Data Home Medications Medication Instructions Recorded Confirmed alprazolam 1 mg tablet 1 mg PO ,12 PRN Anxiety 10/30/19 10/19/20 atorvastatin 40 mg tablet 40 mg PO HS 10/30/19 10/19/20 citalopram 40 mg tablet 40 mg PO HS 10/30/19 10/19/20 telmisartan 40 mg tablet tablet 03/10/22 dicyclomine 10 mg capsule mg 05/12/23 diphenoxylate-atropine 2.5 tablet 05/12/23 mg-0.025 mg tablet duloxetine 30 mg capsule,delayed mg PO 05/12/23 release folic acid 1 mg tablet 05/12/23 Allergies Allergy/AdvReac Type Severity Reaction Status Date / Time Penicillins Allergy Unknown Rash Verified 11/21/23 16:33 Review of Systems Review of Systems: A 10 system review of systems was completed on the patient and is negative except for what is stated in the HPI. Nursing and ancillary documentation was reviewed. [facility] Past Medical History Medical History CAD (coronary artery disease) Chronic back pain Depression Diabetes mellitus, type II HLD (hyperlipidemia) HTN (hypertension) Hx of hepatitis C Treated with interferon Sleep apnea TIA (transient ischemic attack) 1999 Surgical History Surgical History H/O gastric bypass Lap band procedure H/O left wrist surgery H/O right wrist surgery Hx of cholecystectomy Hx of hysterectomy S/P cervical spinal fusion Family History Family History Mother Diabetes mellitus Hypertension Cerebrovascular accident Father Brain tumor Social History Social History Social History: The patient lives with a roommate. She has 1 child which is her daughter. Her daughter is a durable power real estate associate attorney for healthcare. The patient desires to be a full code. 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 Smoking status: Never smoker Alcohol intake: never Substance use: never Gender identity (if verbalized by the patient): Female Spiritual care concerns: No Comments At time of signature, I have reviewed and agree with nursing past medical, surgical, social and family history unless otherwise noted. Please see the nursing chart for further information. There is no relevant family history pertinent to the presenting complaint. Exam Narrative: CONST: Mild acute distress sitting up in the bed and keeping a hand pressed on her right CVA region. Well nourished. HENMT: Head is normocephalic and atraumatic. Moist mucous membranes. No posterior oropharynx erythema. EYES: No conjunctival icterus, injection, or pallor. PERRL. NECK: No meningeal signs. RESP: Able to speak in full sentences. Normal respiratory effort. CTAB. CARDIO: Regular rate. Regular rhythm. 2+ DP and radial pulses bilaterally. GI: Nondistended. No tenderness to palpation. Soft. Negative Rendon sign. No McBur
[2023-11-21 17:47] LABS: Appearance Urine Clear (Clear); Bacteria Urine None Seen /hpf; Bilirubin Urine Negative (Negative); Blood Urine Negative (Negative); Color Urine Yellow (Yellow); Glucose Urine UA Negative (Negative); Ketones Urine Negative (Negative); Leukocyte Esterase Ur 2+ LEU/UL (Negative); Need Manual Microscopic Reviewed; Nitrate Urine Negative (Negative); Non Pathogenic Casts 0-2; Protein Urine Negative (Negative); RBC Urine 0-2 /hpf (0-2); Specific Grav Ur 1.004 (1.001-1.035); Squamous Epithelial Cell Urine None seen /hpf (Few); pH Urine 7.5 (5.0-9.0)
[2023-11-21 17:49] LABS: Add Urine Microscopic? YES
[2023-11-21 17:55] LABS: Influenza A QL RT-PCR Negative (Negative); Influenza B QL RT-PCR Negative (Negative); RSV RNA, RT-PCR Negative (Negative); SARS-CoV-2 RNA PCR Negative (Negative)
[2023-11-21] MEDS: SULFAMETHOXAZOLE/TRIMETHOPRIM 800/160 MG DS TABLET 1 TAB PO (19:06)
[2023-11-21 19:36] VITALS: BP 158/87; PULSE 79; RESP 20; TEMP 36.6; O2SAT 94
== END 2023-11-21 19:36 | disposition home or self-care (01) ==
PROVIDERS: Emergency Provider Student in an Organized Health Care Education/Training Program; PCP Family Medicine
DX: N10 Acute pyelonephritis (principal); Z20.822 Contact with and (suspected) exposure to COVID-19; I25.10 Atherosclerotic heart disease of native coronary artery without angina pectoris; I10 Essential (primary) hypertension; E11.9 Type 2 diabetes mellitus without complications; E78.5 Hyperlipidemia, unspecified; G47.30 Sleep apnea, unspecified; Z98.84 Bariatric surgery status; Z86.19 Personal history of other infectious and parasitic diseases; Z86.73 Personal history of transient ischemic attack (TIA), and cerebral infarction without residual deficits; Z90.49 Acquired absence of other specified parts of digestive tract; Z90.710 Acquired absence of both cervix and uterus; Z98.1 Arthrodesis status; K42.9 Umbilical hernia without obstruction or gangrene; K43.9 Ventral hernia without obstruction or gangrene; I70.0 Atherosclerosis of aorta
CPT/HCPCS: 36415; 71045; 74174; 74176; 80053; 81001; 83690; 83735; 84484; 85025; 85055; 85380; 87086; 87637; 93005; 96361; 96374; 99284; A9270; J2270; J7030; Q9967

== ENCOUNTER 2024-02-07 09:34 | Emergency (ER) | payer MEDICARE, SELFPAY ==
[2024-02-07 09:42] VITALS: BP 162/92; PULSE 68; RESP 16; TEMP 36.4; O2SAT 99
--- NOTE | 2024-02-07 09:55 | ED.URI ---
HPI - URI/Sore Throat General Chief Complaint: Upper Respiratory Infection Stated Complaint: FEVER/WEAKNESS/COLD/CHEST CONGESTION Time Seen by Provider: 02/07/24 09:50 Source: patient and RN notes reviewed Mode of arrival: ambulatory Limitations: no limitations History of Present Illness HPI Narrative: Patient presents today with fever up to 100, sore throat, cough, congestion. Symptoms began yesterday. States sore throat has resolved. Reports symptoms are slightly improved since yesterday. She does report a mild shortness of. No history of asthma or COPD. She has been taking Mucinex with some relief. Denies known sick contacts. Related Data Home Medications Medication Instructions Recorded Confirmed alprazolam 1 mg tablet 1 mg PO , PRN Anxiety 10/30/19 10/19/20 atorvastatin 40 mg tablet 40 mg PO HS 10/30/19 10/19/20 citalopram 40 mg tablet 40 mg PO HS 10/30/19 10/19/20 telmisartan 40 mg tablet tablet 03/10/22 dicyclomine 10 mg capsule mg 05/12/23 diphenoxylate-atropine 2.5 tablet 05/12/23 mg-0.025 mg tablet duloxetine 30 mg capsule,delayed mg PO 05/12/23 release folic acid 1 mg tablet 05/12/23 Allergies Allergy/AdvReac Type Severity Reaction Status Date / Time Penicillins Allergy Unknown Rash Verified 02/07/24 09:50 Review of Systems Review of Systems: CONSTITUTIONAL: Denies body aches, chills, or sweats.+ fever EYES: Denies visual changes, redness, or discharge. ENT: Denies rhinorrhea, or otalgia.+ congestion, sore throat CARDIOVASCULAR: Denies chest pain, palpitations, or edema. RESPIRATORY: + cough, shortness of breath GASTROINTESTINAL: Denies abdominal pain, nausea, vomiting, or diarrhea. GENITOURINARY: Denies dysuria or hematuria. SKIN: Denies rash, itching, or wounds. MUSCULOSKELETAL: Denies back pain, joint pain, or myalgia. NEUROLOGIC: Denies headache, numbness, tingling, or weakness. PSYCH: Denies depression or anxiety. [facility] Past Medical History Medical History CAD (coronary artery disease) Chronic back pain Depression Diabetes mellitus, type II HLD (hyperlipidemia) HTN (hypertension) Hx of hepatitis C Treated with interferon Sleep apnea TIA (transient ischemic attack) 1999 Surgical History Surgical History H/O gastric bypass Lap band procedure H/O left wrist surgery H/O right wrist surgery Hx of cholecystectomy Hx of hysterectomy S/P cervical spinal fusion Family History Family History Mother Diabetes mellitus Hypertension Cerebrovascular accident Father Brain tumor Social History Social History Social History: The patient lives with a roommate. She has 1 child which is her daughter. Her daughter is a durable power civil litigation attorney for healthcare. The patient desires to be a full code. 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 Smoking status: Never smoker Alcohol intake: never Substance use: never Gender identity (if verbalized by the patient): Female Spiritual care concerns: No Comments At time of signature, I have reviewed and agree with nursing past medical, surgical, social and family history unless otherwise noted. Please see nursing chart for further information. There is no relevant family history pertinent to the presenting complaint Exam Narrative: GENERAL: Well-appearing, well-nourished, and in no acute distress. HEAD: Normocephalic, atraumatic. EYES: EOMI. No redness or drainage. Conjunctivae normal. ENT: Mucous membranes pink and moist. Nares mildly congested. No rhinorrhea. TMs normal bilaterally. Throat normal. Uvula midline. NECK: Normal AROM. Supple. No lymphadenopathy. CHEST: No respiratory distress. Clear to auscultation. HEART: Reg
== END 2024-02-07 10:20 | disposition home or self-care (01) ==
PROVIDERS: Emergency Provider Nurse Practitioner; PCP Family Medicine
DX: B34.9 Viral infection, unspecified (principal); Z20.822 Contact with and (suspected) exposure to COVID-19; I25.10 Atherosclerotic heart disease of native coronary artery without angina pectoris; E11.9 Type 2 diabetes mellitus without complications; E78.5 Hyperlipidemia, unspecified; I10 Essential (primary) hypertension; F32.A Depression, unspecified; Z86.73 Personal history of transient ischemic attack (TIA), and cerebral infarction without residual deficits; Z98.84 Bariatric surgery status
CPT/HCPCS: 87081; 87426; 87804; 87880; 99213; G0463

== ENCOUNTER 2024-06-30 10:28 | Outpatient (CLI) | payer MEDICARE, SELFPAY ==
--- NOTE | ~2024-06-30 | XR_ITS ---
XR abdomen/kub 1V Ordering provider: Shobha Wen, TRAFFIC SUPERVISOR History: . Right renal stone, 1 YEAR F/U, NO PAIN . Comparison: None. FINDINGS: BOWEL: Nonobstructive bowel gas pattern. ORGANOMEGALY: None. SIGNIFICANT PATHOLOGIC CALCIFICATIONS: None. OTHER: No free air is seen under the diaphragm. Degenerative changes of the spine. Pubic symphysitis.. IMPRESSION: NO ACUTE ABDOMINAL FINDINGS. Reviewed, dictated and finalized at location A.
== END 2024-06-30 10:29 | disposition home or self-care (01) ==
LOC: ANHIMG 10:41
PROVIDERS: PCP Family Medicine; Visit Provider Nurse Practitioner Family
DX: N20.0 Calculus of kidney (principal)
CPT/HCPCS: 74018

== ENCOUNTER 2024-07-21 15:33 | Emergency (ER) | payer MEDICARE, SELFPAY ==
--- NOTE | ~2024-07-21 | XR_ITS ---
CHEST RADIOGRAPH, PA AND LATERAL CLINICAL HISTORY: cp, SOB . COMPARISON: 11/21/2023 TECHNIQUE: PA and lateral views of the chest. FINDINGS The cardiomediastinal silhouette is unremarkable. The lungs are clear. Visualized osseous structures and soft tissues are unremarkable. IMPRESSION: No focal infiltrate or effusion. Reviewed, dictated and finalized at location A.
--- NOTE | 2024-07-21 15:35 | ECG_ITS ---
Test Date: 2024-07-21 15:40:33 Measurements Intervals [place] Rate: 68 P: 48 ND: 133 QRS: 1 QRSD: 86 T: 33 QT: 406 QTc: 433 Interpretive Statements SINUS RHYTHM POSSIBLE LEFT ATRIAL ENLARGEMENT [-0.1mV P WAVE IN V1/V2] OTHERWISE UNREMARKABLE ECG No previous ECG available for comparison Electronically Signed On 07-22-2024 07:11:33 CDT by Rohan Perea M.D.
[2024-07-21 15:37] VITALS: BP 186/89; PULSE 81; RESP 24; TEMP 36.4; O2SAT 100
--- NOTE | 2024-07-21 15:44 | ED.CHESTPAIN ---
HPI - Chest Pain General Chief Complaint: Chest Pain Stated Complaint: elevated bp, cp Time Seen by Provider: 07/21/24 15:44 Focused HPI: Patient is a 73 y/o female who presents to the ED with c/o anxiety and CP. Patient states she has been increasingly anxious over the past 2 days. Does have hx of anxiety and currently on venlafaxine. Was previously on xanax but no longer takes this. She went to see her psychiatrist today when she began having CP. Pain initially began 3-4 hours ago, states pain was slight at first but has been worsening. Pain in L sided chest. Worse with deep breathing. She does feel SOB. Denies recent cough or cold sx's, fevers, pain or swelling in lower extremities. Denies hx of heart disease. Denies SI/HI. GENERAL: Anxious-appearing, obese, and in no acute distress. HEAD: Normocephalic, atraumatic. CHEST: Clear to auscultation. ?Mild tachypnea/hyperventilating. No significant focal lung sounds. HEART: Tachycardic with regular rhythm.? NEURO: ?Alert and oriented x3. Patient screened in triage and initial orders placed.? ?Additional care and disposition to be based upon?diagnostic testing and treatment. Source: patient Mode of arrival: ambulatory Limitations: no limitations Related Data Home Medications Medication Instructions Recorded Confirmed alprazolam 1 mg tablet 1 mg PO ,12 PRN Anxiety 10/30/19 10/19/20 atorvastatin 40 mg tablet 40 mg PO HS 10/30/19 10/19/20 citalopram 40 mg tablet 40 mg PO HS 10/30/19 10/19/20 telmisartan 40 mg tablet tablet 03/10/22 dicyclomine 10 mg capsule mg 05/12/23 diphenoxylate-atropine 2.5 tablet 05/12/23 mg-0.025 mg tablet duloxetine 30 mg capsule,delayed mg PO 05/12/23 release folic acid 1 mg tablet 05/12/23 Allergies Allergy/AdvReac Type Severity Reaction Status Date / Time Penicillins Allergy Unknown Rash Verified 07/21/24 15:34 FORMERLY [facility], [facility] Past Medical History Medical History CAD (coronary artery disease) Chronic back pain Depression Diabetes mellitus, type II HLD (hyperlipidemia) HTN (hypertension) Hx of hepatitis C Treated with interferon Sleep apnea TIA (transient ischemic attack) 1999 Surgical History Surgical History H/O gastric bypass Lap band procedure H/O left wrist surgery H/O right wrist surgery Hx of cholecystectomy Hx of hysterectomy S/P cervical spinal fusion Family History Family History Mother Diabetes mellitus Hypertension Cerebrovascular accident Father Brain tumor Social History Social History Social History: The patient lives with a roommate. She has 1 child which is her daughter. Her daughter is a durable power employment attorney for healthcare. The patient desires to be a full code. 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 Smoking status: Never smoker Alcohol intake: never Substance use: never Gender identity (if verbalized by the patient): Female Spiritual care concerns: No Course Vital Signs Vital signs: Vital Signs Temperature 97.6 F 07/21/24 15:37 Pulse Rate 81 07/21/24 15:37 Respiratory Rate 24 H 07/21/24 15:37 Blood Pressure 186/89 H 07/21/24 15:37 Pulse Oximetry 100 07/21/24 15:37 Oxygen Delivery Room Air 07/21/24 15:37 Temperature 97.6 F 07/21/24 15:37 Pulse Rate 81 07/21/24 15:37 Respiratory Rate 24 H 07/21/24 15:37 Blood Pressure 186/89 H 07/21/24 15:37 Pulse Oximetry 100 07/21/24 15:37 Oxygen Delivery Room Air 07/21/24 15:37 MDM - Chest Pain MDM Narrative Medical decision making narrative: MSE by GRISEL in triage. Patient left the facility after initial MSE in triage before receiving further care. She did receive 1 dose of p.o. 0.5 mg Ativan in triage. She was witnessed ambulating out of the facility with a steady gait. Medical Records Data Attestation: I reviewed the patient's medical records. Lab Data Attestation: I reviewed the patient's lab results. 10/08/24 16:05 07/21/24 16:05 Labs: Lab Results 07/21/24 07/21/24 Range/Units 16:05 16:05 WBC 8.5 (4.5-10.0) K/mm3 RBC 4.54 (4.2-5.4) M/mm3 Hgb 15.0 (12.0-15.0) g/dL Hct 43.6 (37.0-47.0) % MCV 96.0 (80-100) fl MCH 33.0 (26-34) pg MCHC 34.4 (32-36) g/dl RDW 12.7 (11.5-14.5) % Plt Count 174 (150-375) k/mm3 MPV 10.6 H (7.4-10.4) fl Immature Gran % (Auto) 0.4 (0-0.5) % Neut % (Auto) 57.5 (45.5-73.1) % Lymph % (Auto) 30.0 (18.3-44.2) % [place] % (Auto) 9.2 H (2.6-8.5) % Eos % (Auto) 1.8 (0-4.4) % Baso % (Auto) 1.1 (0.2-1.2) % Lymph # (Auto) 2.54 (0.9-3.2) K/mm3 [place] # (Auto) 0.8 H (0.1-0.6) K/mm3 Eos # (Auto) 0.2 (0-0.3) K/mm3 Baso # (Auto) 0.1 (0.0-0.1) K/mm3 Abs Immat Gran (auto) 0.03 (0.00-0.031) K/mm3 Absolute Neuts (auto) 4.9 (1.3-6.7) K/mm3 Absolute Nucleated RBC 0.000 (0.0-0.012) K/mm3 Nucleated RBC % 0.0 (0.0-0.2) % PT 13.7 (11.1-14.7) Seconds INR 1.0 APTT 25.7 (22.3-36.8) Seconds D-Dimer < 0.27 Cancelled (<0.48) ug/mL Sodium 137 (137-145) mmol/L Potassium 4.0 (3.4-5.0) mmol/L Chloride 107 (98-107) mmol/L Carbon Dioxide 18 L (22-30) mmol/L Anion Gap 12 (4-12) mmol/L BUN 21 H (7-17) mg/dL Creatinine 0.80 (0.7-1.0) mg/dL Estim Creat Clear Calc 57 ml/min Estimated GFR > 60 (59 - ) Glucose 103 (65-110) mg/dL Calcium 9.5 (8.4-10.2) mg/dL Total Bilirubin 0.9 (0.2-1.3) mg/dL AST 29 (14-36) U/L ALT 19 (6-35) U/L Alkaline Phosphatase 88 (38-126) U/L Troponin I < 0.012 (0.000-0.034) ng/mL Total Protein 8.0 (6.3-8.2) g/dL Albumin 4.4 (3.5-5.1) g/dL Lipase 65 (23-300) U/L Discharge Plan Discharge Clinical Impression: Atypical chest pain, Anxiety Patient Disposition: Left Without Being Sn Triaged Prescriptions: No Action atorvastatin 40 mg tablet 40 mg PO HS citalopram 40 mg tablet 40 mg PO HS alprazolam 1 mg tablet 1 mg PO 09,12 PRN (Reason: Anxiety) diphenoxylate-atropine 2.5-0.025 mg tablet folic acid 1 mg tablet dicyclomine 10 mg capsule duloxetine 30 mg capsule,delayed release(DR/EC) PO Debrox 6.5 % drops 10 drp EACH EAR Q12H 4 Days Qty: 15 0RF acetaminophen [Mapap (acetaminophen)] 325 mg Tablet 650 mg PO Q4H PRN (Reason: Mild Pain (1-3) Or Fever) Qty: 60 0RF telmisartan 40 mg tablet sulfamethoxazole-trimethoprim [Bactrim DS] 800-160 mg tablet 1 tablet PO Q12H 10 Days Qty: 20 0RF hydrocodone-acetaminophen 5-325 mg tablet 1 tablet PO Q6H PRN (Reason: pain) 3 Days Qty: 12 0RF Follow-up/Referrals: Laura,Jerri Brown MD [Primary Care Provider] -
[2024-07-21] MEDS: LORazepam (*CRX) 0.5 MG TABLET PO (16:02)
[2024-07-21 16:15] LABS: Basophils Absolute Auto 0.1 K/mm3 (0.0-0.1); Basophils Percent Auto 1.1 % (0.2-1.2); Eosinophils Absolute Auto 0.2 K/mm3 (0-0.3); Eosinophils Percent Auto 1.8 % (0-4.4); Hematocrit 43.6 % (37.0-47.0); Immature Granulocyte Absolute 0.03 K/mm3 (0.00-0.031); Immature Granulocyte Percent A 0.4 % (0-0.5); Lymphocytes Absolute Auto 2.54 K/mm3 (0.9-3.2); Mean Corpuscular HGB Conc 34.4 g/dl (32-36); Mean Platelet Volume 10.6 fl (7.4-10.4); Monocytes Absolute Auto 0.8 K/mm3 (0.1-0.6); Monocytes Percent Auto 9.2 % (2.6-8.5); Neutrophils Absolute Auto 4.9 K/mm3 (1.3-6.7); Neutrophils Percent Auto 57.5 % (45.5-73.1); Platelet Count Result 174 k/mm3 (150-375); Red Blood Count 4.54 M/mm3 (4.2-5.4); Red Cell Distribution Width 12.7 % (11.5-14.5); White Blood Count 8.5 K/mm3 (4.5-10.0)
[2024-07-21 16:26] LABS: Prothrombin Time 13.7 Seconds (11.1-14.7)
[2024-07-21 16:27] LABS: Partial Thromboplastin Time 25.7 Seconds (22.3-36.8)
[2024-07-21 16:32] LABS: D Dimer < 0.27 ug/mL (<0.48)
[2024-07-21 16:43] LABS: Alanine Aminotransferase 19 U/L (6-35); Albumin Level 4.4 g/dL (3.5-5.1); Alkaline Phosphatase 88 U/L (38-126); Anion Gap 12 mmol/L (4-12); Aspartate Amino Transferase 29 U/L (14-36); Bilirubin,Total 0.9 mg/dL (0.2-1.3); Blood Urea Nitrogen 21 mg/dL (7-17); Calcium 9.5 mg/dL (8.4-10.2); Carbon Dioxide 18 mmol/L (22-30); Chloride 107 mmol/L (98-107); Estimated CRCL calculation 57 ml/min; Estimated Glomerular Filt Rate > 60; Glucose 103 mg/dL (65-110); Lipase 65 U/L (23-300); Sodium 137 mmol/L (137-145)
[2024-07-21 16:55] LABS: Troponin I < 0.012 ng/mL (0.000-0.034)
== END 2024-07-21 18:46 | disposition left against medical advice (07) ==
PROVIDERS: Emergency Medicine; Emergency Provider Physician Assistant; PCP Family Medicine
DX: F41.9 Anxiety disorder, unspecified (principal); R07.9 Chest pain, unspecified; I25.10 Atherosclerotic heart disease of native coronary artery without angina pectoris; I10 Essential (primary) hypertension; E78.5 Hyperlipidemia, unspecified; E11.9 Type 2 diabetes mellitus without complications; G47.30 Sleep apnea, unspecified; Z98.84 Bariatric surgery status; Z86.19 Personal history of other infectious and parasitic diseases; Z86.73 Personal history of transient ischemic attack (TIA), and cerebral infarction without residual deficits; Z90.49 Acquired absence of other specified parts of digestive tract; Z90.710 Acquired absence of both cervix and uterus; Z79.899 Other long term (current) drug therapy; R94.31 Abnormal electrocardiogram [ECG] [EKG]
CPT/HCPCS: 36415; 71046; 80053; 83690; 84484; 85025; 85380; 85610; 85730; 93005; 99199; 99284; A9270

== ENCOUNTER 2025-05-26 10:26 | Emergency (ER) | payer MEDICARE, SELFPAY ==
--- NOTE | ~2025-05-26 | CT_ITS ---
EXAMINATION: CT diagnostic chest w con DATE: 05/26/2025 13:03 INDICATION: Chest pain. Rule out infection TECHNIQUE: Computed tomography (CT) of the chest was performed without intravenous contrast. The dose -length product was 354.37 mGy-cm. COMPARISON: CTA chest PE protocol 03/10/2020 FINDINGS: Thoracic aorta is grossly unremarkable with the exception of mild atherosclerotic disease. Heart is n ot enlarged. There are coronary artery calcifications. No large mediastinal or hilar lymph nodes. Visualized upper abdomen is unremarkable. Visualized tracheobronchial tree is patent. No pneumothorax. No pleural effusion. There are a few sma ll reticular and bandlike opacities in the mid and lower lungs. No focal consolidation. No pulmonary mass. Multilevel mild to moderate degenerative change scattered throughout the visualized thoracic spine. IMPRESSION: 1. There are a few small reticular and bandlike opacities in the mid and lower lungs. Differential in cludes atelectasis/scarring or infiltrates. 2. No focal pulmonary consolidation Reviewed, dictated and finalized at location A. IMPRESSION: 1. There are a few small reticular and bandlike opacities in the mid and lower lungs. Differential includes atelectasis/scarring or infiltrates. 2. No focal pulmonary consolidation
--- NOTE | ~2025-05-26 | XR_ITS ---
XR chest 2V 05/26/2025 11:54 Indication: Chest pain, shortness of breath and lightheadedness Procedure: 2 view chest Comparison: Comparison to multiple prior studies sequentially, with oldest reviewed study dated 05/2021. Findings: There is left basilar airspace disease which may represent atelectasis or developing pneumo sheridan. No pleural effusion or pneumothorax. Impression: 1: Left basilar airspace disease may represent atelectasis or developing pneumonia. Reviewed, dictated and finalized at location A. Impression: 1: Left basilar airspace disease may represent atelectasis or developing pneumo sheridan.
--- NOTE | 2025-05-26 10:34 | ECG_ITS ---
Test Date: 2025-05-26 10:49:02 Measurements Intervals [place] Rate: 72 P: 175 VT: 147 QRS: 177 QRSD: 84 T: 158 QT: 401 QTc: 440 Interpretive Statements SINUS RHYTHM ARM LEADS REVERSED POSSIBLE LEFT ATRIAL ENLARGEMENT BASELINE ARTIFACT- I, II, III, AVR, AVL, AVF, V2 ATYPICAL ECG Compared to ECG 07/21/2024 15:40:33 No significant changes Electronically Signed On 05-26-2025 11:40:24 CDT by Rudy Mo D.O.
[2025-05-26 10:35] VITALS: BP 148/70; PULSE 71; RESP 17; O2SAT 95
--- OUTSIDE RECORDS SUMMARY | 2025-05-26 10:42 | XMS_ITS ---
Author Organization [facility] Guest of a Guest [facility] Address [address] [place] [address] Care Team Providers Care Gold Leaf Gilder Name Role Phone Jerri Sanchez MD Primary Care Provider UnavailRamsey Hernández Unavailable [phone] REASON FOR VISIT Mci testing Social History Sex Assigned At : Social History Observation Description Sex Assigned At Female Encounters Encounter Location Date Provider Diagnosis [facility] [employer] [facility] [address] [place] [address] 04/14/2025 Ramsey Vallejo Plan Of Treatment Next Appt Details Provider Name:Ramsey Vallejo , 06/09/2025 01:15:00 PM, [address], [facility] [address], [place], [address], Progress Notes * ROYAL MelvinaDOB:1950 (74 yo F)Acc No.[id number]:04/14/2025 Patient: Melvina RODRIGUEZ Provider: Kaitlin VALLEJO MD :1950 A ge:74 Y S ex:Female Date:04/14/2025 Phone: [address] [place] [place], [id number] Pcp:Jerri Sanchez MD Subjective: * Chief Complaints: * 1 . Mci testing. * Active Problem List I10 Benign essential hyp ertension Onset Date:06/03/2018Modified On:07/24/2024W/U Status:confirmedClinical Status:Active E66.01 Morbid obesity Onset Date:05/13/2020Modified On:07/03/2024W/U Status:confirmedClinical Status:Active E78.00 Pure hypercholestero lemia Onset Date:06/03/2018Modified On:07/03/2024 Status:confirmedClinical Status:Active B18.2 Chronic hepatitis C without hepatic coma Onset Date:11/13/2018Modified On:07/03/2024 Status:confirmedClinical Status:Active F51.01 Primary insomnia Modified On:07/03/2024 Status:confirmed G31.84 Mild cognitive impai rment Modified On:07/03/2024 Status:confirmed F41.1 ROBIN (generalized anx iety disorder) Modified On:07/21/2024 Status:confirmed R07.9 Intermittent chest p ain Modified On:07/21/2024 Status:confirmed R06.02 SOB (shortness of br eath) Modified On:07/21/2024 Status:confirmed I10 Essential (primary) hypertension Modified On:07/24/2024 Status:confirmed 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
--- OUTSIDE RECORDS SUMMARY | 2025-05-26 10:42 | XMS_ITS | Clinical Summary ---
Author Organization [facility] Address [address] [place] [address] Care Team Providers Care Application Chemist Name Role Phone Jerri Sanchez MD Primary Care Provider [phone] Charmaine Becerra MD Unavailable [phone] Allergies Active Allergy Reactions Criticality Noted Date Comments Cephalexin Rash Medium 05/09/2012 Penicillins Rash Medium 06/03/2018 Prednisone Mental status changes High 08/11/2018 Medications atorvastatin (LIPITOR) 40 mg tabletIndications: hyperlipidemia Take 40 mg by mouth nightly Active ALPRAZolam (XANAX) 1 mg tablet Take 1 mg by mouth 3 (three) times a day as needed for anxiety Active citalopram (CeleXA) 40 mg tabletIndications: Anxiety with Depression Take 40 mg by mouth nightly Active lisinopril (PRINIVIL,ZESTRIL) 20 mg tabletIndications: hypertension Take 20 mg by mouth nightly Active albuterol HFA (PROVENTIL HFA,VENTOLIN HFA,PROAIR HFA) 90 mcg/actuation inhalerIndications :had covid in 10/2020 Inhale 2 puffs every 4 (four) hours as needed 04/02/20 20 Active ibuprofen (ADVIL,MOTRIN) 600 mg tablet Take 1 tablet (600 mg total) by mouth daily as needed for pain 30 tablet 06/01/20 21 Active ondansetron ODT (ZOFRAN-ODT) 4 mg disintegrating tablet ondansetron 4 mg disintegrating tablet DISSOLVE 1 TABLET IN MOUTH EVERY 4 HOURS NEEDED FOR NAUSEA OR VOMITING Active pantoprazole DR (PROTONIX) 40 mg EC tablet Take 1 tablet (40 mg total) by mouth daily 30 tablet 11 07/27/20 21 Active nystatin powder Apply topically 4 (four) times a day Active telmisartan (MICARDIS) 40 mg tablet Take 40 mg by mouth daily 02/28/20 22 Active telmisartan (MICARDIS) 20 mg tablet Take 20 mg by mouth daily 01/17/20 22 Active ergocalciferol, vitamin D2, (VITAMIN D2 ORAL) Take by mouth Active hydrOXYzine (ATARAX) 25 mg tablet Take 2 tablets (50 mg total) by mouth 3 (three) times a day as needed for itching 15 tablet 08/31/20 23 Active Active Problems Problem Noted Date Diagnosed Date Epigastric pain 07/27/2021 Overview (07/27/2021): Added automatically from request for surgery [id number] Assessment & Plan (2021 12:00 PM CDT): Start Protonix 40 mg daily. Check CBC because of the history of black stool. Schedule EGD for evaluation. Follow-up in 4-6 weeks. Black stool 07/27/2021 Overview (08/07/2021): Added automatically from request for surgery [id number] Colitis 05/27/2021 Assessment & Plan (08/06/2021 8:15 PM CDT): Recent Salmonella infection with colitis and diarrhea, and treated with antibiotics. She may be having post infectious diarrhea. Right carpal tunnel syndrome 12/21/2020 Overview (12/21/2020): Added automatically from request for surgery [id number] Carpal tunnel syndrome of right wrist 03/17/2020 Hearing loss 03/17/2020 Morbid obesity 03/17/2020 Chronic hepatitis C without hepatic coma 019 Overview (05/13/2020): 10/31/18 Fibroscan CAP 259, E 4.7 kPa Last Assessment & Plan: Reports that was treated (twice) with interferon-based therapy by Dr Herrera and was told she was cured. Original liver biopsy [id number] done in October 1999 showed CHB Grade 3, Stage 3 Pancreatic insufficiency 09/30/2018 Chronic diarrhea 08/11/2018 Assessment & Plan (2021 11:59 AM CDT): Patient has chronic irregular bowel movements. Previous colonoscopies were normal. No worrisome signs. Will start by stopping the probiotics. This is the patient diet modifications. If no resolution of symptoms with diet modifications will schedule repeat colonoscopy. 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 Has responded well to Zenpep. Continue pancreatic supplementation. If it turns out that she finds this totally under affordable of we would check stool pancreatic elastase after being off of the pancreatic enzyme for a week. Her previous testing was only fecal fat staining in [place]. She has had a significant clinical response and is doing well. Assessment & Plan (08/11/2018 2:04 PM CDT): The patient by history may have malabsorption related to chronic pancreatitis. I need to see the CT scan that was performed at [facility]. I also need to know whether we need to perform endoscopic ultrasound. In addition, a stool test for fecal pancreatic elastase would be helpful. She would have to be off of pancreatic enzyme for 5 days beforehand. Also she has had a prior cholecystectomy and we would have to see whether bile salt binding agents would be of benefit. She is to be on all low-fat diet. I also recommended going to alcoholics anonymous or discussing of alcohol cessation with her psychiatrist. Will also need to consider checking her hepatitis-B status with viral DNA and antigen testing. I will see her again in 1 month with records present. Closed fracture of lower end of left radius with routine healing 06/03/2018 Fracture of ulnar styloid 11/05/2017 Pure hypercholesterolemia 11/28/2015 Encounter for long-term (current) use of insulin 09/23/2013 Benign essential hypertension 05/07/2012 Surgical History Surgery Date Site/Laterality Comments WRIST SURGERY 11/18/2017 hardware present COLONOSCOPY 12/27/2014 Colonic mucosa with rare regenerating crypts. No significant inflammation seen. COLONOSCOPY 11/14/2012 - 12/11/2012 Normal ( per pt.) UPPER GASTROINTESTINAL ENDOSCOPY 03/05/2016 Antral mucosa with no significant histopathologic abnormalities. Hiatal Hernia. CHOLECYSTECTOMY 10/14/1986 - 10/13/1987 LAPAROSCOPIC GASTRIC BANDING 10/14/2009 - 10/13/20102015 removed ELBOW SURGERY 10/14/1997 - 10/13/1998 Right UPPER GASTROINTESTINAL ENDOSCOPY 03/01/2017 Superficial antral mucosa with no significant histopathologic abnormalities. COLONOSCOPY 08/03/2009 Internal hemorrhoids. No pathology at this time HYSTERECTOMY 1994 Medical History Medical History Date Comments Hepatitis C 1997 INACTIVE, treate d Back pain Covid-19 Sleep apnea Prior diagnosis before losing 100 pounds HTN (hypertension) HLD (hyperlipidemia) Anxiety Depression Asthma patient denies Family History Medical History Relation Name Comments Arthritis Father Family history of arthritis - (Added by TW Conv) Hypertension Father Family history of hypertension - (Added by TW Conv) Stroke Father Family history of cerebrovascular accident (CVA) - (Added by TW Conv) Arthritis Mother Family history of arthritis - (Added by TW Conv) Hypertension Mother Family history of hypertension - (Added by TW Conv) Ovarian cancer Mother Aneurysm Sister Anesthesia problems Neg Hx Relation Name Status Comments Father cancer Mother Sister Social History Tobacco Use Types Packs/Day Years Used Date Smoking Tobacco: Former Cigarettes 0.5 1.2 1 967 - 12/22/1967 Smokeless Tobacco: Never Alcohol Use Standard Drinks/Week Comments No 0 (1 standard drink = 0.6 oz pur e alcohol) AUDIT-C Answer Date Recorded Q1: How often do you have a drink containing alc ohol? Monthly or less 12/21/2020 Q2: How many drinks containi ng alcohol do you have on a typical day when you are drinking? 1 or 2 12/21/2020 Q3: How often do you have si x or more drinks on one occasion? Less than monthly 12/21/2020 Personal Safety Answer Date Recorded Have you ever been in or are you currently in a harmful physical or emotional relationship or is someone making you feel afraid or unsafe? Denies 08/31/2023 Comments No Sex and Gender Information Value Date Recorded Sex Assigned at Not on file Legal Sex Female 9:41 PM PREFORMS LAMINATOR Gender Identity Not on file Sexual Orientation Not on file Obstetrics History Last Filed Vital Signs Vital Sign Reading Time Taken Comments Blood Pressure 101/62 08/31/2023 4:50 PM PREFORMS LAMINATOR Pulse 69 08/31/2023 4:55 PM PREFORMS LAMINATOR Temperature 36.9 C (98.5 F) 08/31/2023 10:51 AM PREFORMS LAMINATOR Respiratory Rate 18 08/31/2023 4:55 PM PREFORMS LAMINATOR Oxygen Saturation 99% 08/31/2023 4:55 PM PREFORMS LAMINATOR Inhaled Oxygen Concentration - - Weight 97.5 kg (215 lb) 08/31/2023 10:51 AM PREFORMS LAMINATOR Height 162.6 cm (5' 4) 08/31/2023 10:51 AM PREFORMS LAMINATOR Body Mass Index 36.9 08/31/2023 10:51 AM PREFORMS LAMINATOR Plan of Treatment Health Maintenance Due Date Last Done Comments Breast Cancer Screening-Mammogram 1950 Depression Screening 1950 Zoster Vaccine (2 of 3) 07/28/2015 06/02/2015 Well Visit 65+ 2015 Osteoporosis Screening-Bone Density Scan 02/26/2020 02/25/2018 Fall Risk Assessment 06/01/2022 06/01/2021 Covid-19 Vaccine (4 - 2023-2 5 season) 2024 08/22/2021, 01/11/2021, 12/13/2020 Colon Cancer Screening-Colonoscopy 12/27/2024 12/27/2014, 08/03/2009 DTaP/Tdap/Td Vaccine (2 - Td or Tdap) 05/17/2025 05/17/2015, 05/09/2003 Influenza Vaccine (#1) 2025 3, 10/03/2022, 08/22/2021, Additional history exists Colon Cancer Screening-CT Colonography Discontinued 12/27/2014, 08/03/2009 Colon Cancer Screening-DNA Stool Discontinued 12/28/19 15, 08/03/2009 Colon Cancer Screening-FIT Discontinued 12/27/2014, Colon Cancer Screening-Sigmoidoscopy Discontinued 12/27/2014, 08/03/2009 Hepatitis C Screening Completed 10/21/2018 Pneumococcal vaccine 65+ Completed 020, 02/25/2018, 08/07/2004 Procedures Procedure Name Priority Date/Time Associated Diagnosis Comments COLONOSCOPY Routine 12/27/2014 from Last 3 Months or Most Recently Relevant to Health Maintenance Results * Colonoscopy (12/27/2014) Anatomical Region Laterality Modality Other us Historical Provider ENDOSCOPY PROCEDURES Padmini l Result from Last 3 Months or Most Recently Relevant to Health Maintenance Insurance MEDICARE [facility] UHC MEDICARE ADVANTAGE [facility] MEDICARE Address: [address] [address] [place] [address] [employer] MEDICARE Advance Directives For more information, please contact: [phone] * Full Code (Latest Code Status on File) Date Activated Date Inactivated Comments 08/18/2021 7:21 AM 08/18/2021 1:29 PM * Full Code Date Activated Date Inactivated Comments 05/28/2021 9:34 AM 06/01/2021 7:01 PM Care Teams Application Chemist Relationship Specialty Start Date End Date Jerri Sanchez MD [address] [place] [id number] PCP - General 11/14/17 Charmaine Becerra MD [address] [place] [id number] Consulting Physician Gastroenterology 06/01/21
--- OUTSIDE RECORDS SUMMARY | 2025-05-26 10:42 | XMS_ITS | Patient Health Record ---
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 Rule obstructive sleep apnea Diagnosis 1 Primary insomnia (F5 1.01) Referral Organization [facility] [employer] Referring Provider First Name Ramsey Referring Provider Last Name Mao Referring Provider Speciality Psychiatry Referred Provider Jordana Tapia MD Referred Provider Specialty Critical Car e (Intensivists) Referral Priority Routine Medications Medication SIG (Take, Route, Frequency, Duration) Notes Start Date End Date Status Atorvastatin Calcium 40 MG TAKE 1 TABLET BY MOUTH AT BEDTIME Oral; Duration: 90 Days Active Memantine HCl 10 MG TAKE 1 TABLET BY MOUTH TWICE A DAY Oral; Duration: 90 Days Active QUEtiapine Fumarate 50 MG 1 tablet every night; Duration: 90 days Active Ramelteon 8 MG TAKE 1 TABLET BY MOUTH EVERY DAY Oral; Duration: 90 Days Not-Taking Donepezil HCl 5 MG 1 tablet at bedtime Orally Once a day; Duration: 30 day(s) 05/12/2025 Active traZODone HCl 100 MG 1 tablet at bedtime Orally Once a day; Duration: 30 days 03/24/2025 Active Telmisartan 80 MG 1 tablet Oral Once a day; Duration: 90 days Active Venlafaxine HCl ER 150 MG 1 capsule every motning Oral Once a day; Duration: 30 days Active QUEtiapine Fumarate 100 MG 1 tablet Oral Once a day; Duration: 30 days Active Venlafaxine HCl ER 150 MG 1 capsule with food Orally Once a day; Duration: 30 days Active hydrOXYzine HCl 10 MG 1 tablet Oral 3 times a day; Duration: 30 days As needed take dose reduced Active busPIRone HCl 5 MG TAKE 1 TABLET BY MOUTH 3 TIMES A DAY; Duration: 30 Active Social History Tobacco Use: Social History Observation Description Date Details (start date - stop date) Never Smoker NA - NA Sex Assigned At : Social History Observation Description Sex Assigned At Female Tobacco Control (Standard) Question Answer Notes Tobacco use: Nonsmoker Section Notes: Tobacco use: Denies Hobbies: Plays [employer] Alcohol use: Denies Problems Problem Type SNOMED Code ICD Code Onset Dates Problem Status W/U Status Risk Notes Problem Primary insomnia (4024414) Primary insomnia (F51.01) Active confirmed Problem Essential hypertension (47068676) Essential (primary) hypertension (I10) Active confirmed Problem Generalized anxiety disorder (23643943) ROBIN (generalized anxiety disorder) (F41.1) Active confirmed Problem Mild cognitive impairment (233638323) Mild cognitive impairment (G31.84) Active confirmed Problem Recurrent major depression in full remission (94089373) Major depression, recurrent, full remission (F33.42) Active confirmed Problem Mild cognitive disorder (783580868) Mild cognitive disorder (F09) Active confirmed Problem Mental disorder (94453765) 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) Active confirmed Problem Chest pain (17465706) Intermitte nt chest pain (R07.9) Active confirmed Problem Dyspnea (072837902) SOB (shortne ss of breath) (R06.02) Active confirmed Problem Morbid obesity (417875497) Morbid obesity (E66.01) 2019 Active confirmed Problem Pure hypercholesterolemia (538227693) Pure hypercholesterolemia (E78.00) 2017 Active confirmed Problem Benign essential hypertension (8752966) Benign essential hypertension (I10) 2017 Active confirmed Problem Chronic hepatitis C (574005532) Chronic hepatitis C without hepatic coma (B18.2) 2018 Active confirmed Vital Signs Heart Rate 72 /min 04/05/2025 Oximetry 93 % 07/21/2024 Height-cm 162.56 cm 05/12/2025 Blood pressure diastolic 80 mm Hg 05/12/2025 Weight-kg 91.63 kg 04/05/2025 Height 64 in 05/12/2025 Blood pressure systolic 130 mm Hg 05/12/2025 Weight 202 lbs 04/05/2025 BMI 34.67 kg/m2 04/05/2025 Encounters Encounter Location Date Provider Diagnosis [facility] [address] [place] [id number] [facility] [address] [address] 07/03/2024 Ramsey Cavanaugh Mild major depressio n F32.0 ; ROBIN (generalized anxiety disorder) F41.1 ; Primary insomnia F51.01 ; Pure hypercholesterolemia E78.00 ; Morbid obesity E66.01 and Mild cognitive impairment G31.84 [facility] [address] [address] [facility] [address] [address] 07/21/2024 Kenyon Bloom ROBIN (generalized anx iety disorder) F41.1 ; Intermittent chest pain R07.9 and SOB (shortness of breath) R06.[address] [address] 07/24/2024 Ramsey Cavanaugh ROBIN (generalized anx iety disorder) F41.1 ; Intermittent chest pain R07.9 ; SOB (shortness of breath) R06.02 ; Essential (primary) hypertension I10 and Anxiety disorder due to multiple medical problems F06.8 [place] [id number] [facility] [address] [address] 08/12/2024 Ramsey Cavanaugh [address] [address] 08/31/2024 Ramsey Cavnaaugh ROBIN (generalized anx iety disorder) F41.1 ; Anxiety disorder due to multiple medical problems F06.8 ; Intermittent chest pain R07.9 ; SOB (shortness of breath) R06.02 and Essential (primary) hypertension I10 [facility] [place] [id number] [facility] [address] [address] 09/14/2024 Ramsey Mao ROBIN (generalized anx iety disorder) F41.1 ; Anxiety disorder due to multiple medical problems F06.8 ; Intermittent chest pain R07.9 ; SOB (shortness of breath) R06.02 and Essential (primary) hypertension I10 [facility] [place] [address] [facility] [address] [facility] [address] [place] [address] 11/30/2024 Kenyon Clubb ROBIN (generalized anx iety disorder) F41.1 and Primary insomnia F51.[address] [facility] [address] [place] [address] 01/04/2025 Ramsey Mao ROBIN (generalized anx iety disorder) F41.1 ; Primary insomnia F51.01 and Encounter for screening for depression Z13.[address] [facility] [address] [place] [address] 02/01/2025 Ramsey Mao [address] [address] 02/05/2025 Ramsey Cavanaugh Encounter for screen ing for depression Z13.31 ; Encounter for screening for cardiovascular disorders Z13.6 ; ROBIN (generalized anxiety disorder) F41.1 and Primary insomnia F51.[address] [address] 03/12/2025 Ramseymario Ureñaam ROBIN (generalized anx iety disorder) F41.1 ; Primary insomnia F51.01 ; Major depression, recurrent, full remission F33.42 ; Negative depression screening Z13.31 ; Encounter for screening for cardiovascular disorders Z13.6 ; Dietary counseling and surveillance Z71.3 ; Benign essential HTN I10 and Mild cognitive disorder F09 [address] [address] 04/05/2025 Ramseymario Cavanaugh Major depression, recurrent, full remission F33.42 ; ROBIN (generalized anxiety disorder) F41.1 ; Primary insomnia F51.01 ; Benign essential HTN I10 ; Encounter for screening for depression Z13.31 and Mild cognitive impairment G31.84 [place] [address] [facility] [address] [facility] [address] [place] [address] 05/12/2025 Ramsey Mao ROBIN (generalized anx iety disorder) F41.1 ; Major depression, recurrent, full remission F33.42 ; Primary insomnia F51.01 ; Mild cognitive impairment G31.84 and Benign essential HTN I10 [address] [facility] [address] [place] [address] 05/19/2025 Ramsey Cavanaugh Mild cognitive impai rment G31.84 [facility] [employer] [address] [place] [address] 07/06/2024 Ramsey Cavanaugh [facility] [employer] [address] [place] [address] 03/24/2025 Ramsey Cavanaugh Primary insomnia F51 .01 Assessments Encounter Date Diagnosis (ICD Code) Assessment Notes Treatment Notes Treatment Clinical Notes Section Notes 07/03/2024 ROBIN (generalized anxiety disorder) (ICD-10 - F41.1) Anxiety - Assessment: Mild to moderate anxiety reported by the patient, including feeling jittery and super nervous all the time. - Plan: - Continue venlafaxine 75 mg, switch to slow-release version and take in the morning to avoid potential insomnia side effect. - Monitor and reassess in three weeks. Insomnia - Assessment: Patient reports difficulty sleeping and broken sleep, averaging six hours per night with frequent awakenings. - Plan: - Start quetiapine 25 mg at bedtime for sleep. - Reassess in three weeks and consider increasing to 50 mg if sleep does not improve. - Discuss with primary care provider (PCP) about ordering a sleep study to rule out sleep apnea. Depression - Assessment: Patient reports mild, persistent depression with the last severe episode three weeks ago, lasting a couple of days. - Plan: - Continue venlafaxine 75 mg, switch to slow-release version and take in the morning. - Monitor and reassess in three weeks. Memory Issues - Assessment: Patient reports memory problems and had difficulty with word recall during the visit. - Plan: - Schedule a computer-based memory test to assess the need for medication adjustment. - Encourage the patient to discuss pre-packaged medication options (e.g., bubble pack) with their pharmacy to improve medication adherence. Hypertension - Assessment: Elevated blood pressure noted during the visit. - Plan: - Encourage the patient to follow up with their PCP for blood pressure management. Sleep Apnea - Assessment: Patient has a history of borderline sleep apnea but has not received treatment. - Plan: - Discuss with PCP about ordering a sleep study to reassess sleep apnea. - If the PCP is unable to order the study, consider ordering it during the follow-up visit in three weeks. Medication Management - Assessment: Patient reports difficulty remembering to take medications and relies on a friend for assistance. - Plan: - Discuss pre-packaged medication options (e.g., bubble pack) with the patient's pharmacy to improve medication adherence. Follow-up - Plan: Schedule a follow-up appointment in three weeks to reassess anxiety, insomnia, depression, and memory issues. Discuss the results of the computer-based memory test and any necessary medication adjustments. 07/03/2024 Mild major depression (ICD-10 - F32.0) Anxiety - Assessment: Mild to moderate anxiety reported by the patient, including feeling jittery and super nervous all the time. - Plan: - Continue venlafaxine 75 mg, switch to slow-release version and take in the morning to avoid potential insomnia side effect. - Monitor and reassess in three weeks. Insomnia - Assessment: Patient reports difficulty sleeping and broken sleep, averaging six hours per night with frequent awakenings. - Plan: - Start quetiapine 25 mg at bedtime for sleep. - Reassess in three weeks and consider increasing to 50 mg if sleep does not improve. - Discuss with primary care provider (PCP) about ordering a sleep study to rule out sleep apnea. Depression - Assessment: Patient reports mild, persistent depression with the last severe episode three weeks ago, lasting a couple of days. - Plan: - Continue venlafaxine 75 mg, switch to slow-release version and take in the morning. - Monitor and reassess in three weeks. Memory Issues - Assessment: Patient reports memory problems and had difficulty with word recall during the visit. - Plan: - Schedule a computer-based memory test to assess the need for medication adjustment. - Encourage the patient to discuss pre-packaged medication options (e.g., bubble pack) with their pharmacy to improve medication adherence. Hypertension - Assessment: Elevated blood pressure noted during the visit. - Plan: - Encourage the patient to follow up with their PCP for blood pressure management. Sleep Apnea - Assessment: Patient has a history of borderline sleep apnea but has not received treatment. - Plan: - Discuss with PCP about ordering a sleep study to reassess sleep apnea. - If the PCP is unable to order the study, consider ordering it during the follow-up visit in three weeks. Medication Management - Assessment: Patient reports difficulty remembering to take medications and relies on a friend for assistance. - Plan: - Discuss pre-packaged medication options (e.g., bubble pack) with the patient's pharmacy to improve medication adherence. Follow-up - Plan: Schedule a follow-up appointment in three weeks to reassess anxiety, insomnia, depression, and memory issues. Discuss the results of the computer-based memory test and any necessary medication adjustments. 07/21/2024 ROBIN (generalized anxiety disorder) (ICD-10 - F41.1) 1. Shortness of Breath and Intermittent Chest Pain - Patient experiencing shortness of breath for 2 days and intermittent left-sided chest pain. - Not evaluated by PCP for these symptoms. - Plan: a. Urgently refer to ER for evaluation including EKG and cardiac workup. b. Patient declined ambulance, will drive self to ER. 2. Insomnia - Patient reports difficulty sleeping at night, with some improvement last night. - Plan: Address underlying cause of shortness of breath and chest pain, which may contribute to insomnia. - follow up visit scheduled with Dr. Larson on 07/24/2024 3. Anxiety - Patient appears significantly anxious, potentially contributing to shortness of breath and insomnia. Self-describes as nervous wreck. - Plan: a. Encourage follow up at scheduled 11th appointment for anxiety evaluation/marcelina montoya. b. go to nearest emergency room to assess cardiac complications. 4. Elevated Blood Pressure - Blood pressure elevated during visit. - Plan: a. Monitor BP during ER visit and address underlying causes. b. Encourage PCP follow up for ongoing BP management. 07/21/2024 Intermittent chest pain (ICD-10 - R07.9) strongly advised patient to go to the emergency room. insisted that an ambulance be called for transportation, pt refused. schedule a follow up with PCP concerning hypertension and SOB and Intermittent chest pain after emergency room visit. follow up apt already established on 07/24/[address] Larson. Final disposition: sent to emergency room Treatment options reviewed discussed the risk of not going to the emergency room. discussed the risk of driving self ot the ER. discussed the benefit of going to the ER. Discussed the benefit of allowing an amublance to transport to the ER. 1. Shortness of Breath and Intermittent Chest Pain - Patient experiencing shortness of breath for 2 days and intermittent left-sided chest pain. - Not evaluated by PCP for these symptoms. - Plan: a. Urgently refer to ER for evaluation including EKG and cardiac workup. b. Patient declined ambulance, will drive self to ER. 2. Insomnia - Patient reports difficulty sleeping at night, with some improvement last night. - Plan: Address underlying cause of shortness of breath and chest pain, which may contribute to insomnia. - follow up visit scheduled with Dr. Larson on 07/24/2024 3. Anxiety - Patient appears significantly anxious, potentially contributing to shortness of breath and insomnia. Self-describes as nervous wreck. - Plan: a. Encourage follow up at scheduled 11th appointment for anxiety evaluation/marcelina montoya. b. go to nearest emergency room to assess cardiac complications. 4. Elevated Blood Pressure - Blood pressure elevated during visit. - Plan: a. Monitor BP during ER visit and address underlying causes. b. Encourage PCP follow up for ongoing BP management. 07/24/2024 ROBIN (generalized anxiety disorder) (ICD-10 - F41.1) Anxiety - Assessment: Patient reports persistent anxiety throughout the day, difficulty concentrating, and nervousness. Currently on venlafaxine 75 mg, two in the morning and one in the afternoon. Patient reports feeling like a nervous wreck all day, having trouble coping with things, and occasionally flying off the handle. - Plan: - Increase venlafaxine dose to 50 mg at bedtime. - Schedule a follow-up appointment in two weeks to reassess anxiety levels and medication effectiveness. Insomnia - Assessment: Patient reports difficulty falling asleep, with sleep onset around 5 AM and only getting approximately 4 hours of sleep per night. Patient is out of previously prescribed sleep medication. - Plan: - Prescribe a sleep aid to help improve sleep quality and duration. - Encourage the patient to practice good sleep hygiene, including establishing a regular sleep schedule and creating a relaxing bedtime routine. Memory Issues - Assessment: Patient reports forgetfulness, misplacing items, and occasional difficulty finding the right words or remembering the day. Currently taking memantine for memory issues, prescribed by primary care physician Dr. Jerri Smith. Slump score of 30 out of 30, indicating no present memory issues. Patient reports memory issues started about a year ago and seem to be getting increasingly difficult. - Plan: - Continue memantine as prescribed. - Monitor memory issues during follow-up appointments and consider further evaluation if symptoms worsen or new concerns arise. High Blood Pressure - Assessment: Patient has a history of high blood pressure and is currently on medication for it. Blood pressure needs to be checked during the visit. - Plan: - Check blood pressure during the visit. - Encourage the patient to maintain a healthy lifestyle, including regular exercise, a balanced diet, and stress management techniques. - Continue monitoring blood pressure during follow-up appointments and adjust medication as needed. Weight Loss - Assessment: Patient reports losing weight and dropping two clothing sizes. Patient has a history of lap band surgery a few years ago, resulting in an 80-pound weight loss. - Plan: - Monitor weight during follow-up appointments. - Encourage the patient to maintain a healthy diet and exercise routine to support healthy weight management. Recent ER Visit - Assessment: Patient reports a recent ER visit due to chest pain and shortness of breath, which have since resolved. Patient left the ER without being seen due to long wait times and anxiety. - Plan: - Monitor for any recurrence of chest pain or shortness of breath. - Educate patient on the importance of completing ER visits and following up with primary care physician as needed. 08/31/2024 ROBIN (generalized anxiety disorder) (ICD-10 - F41.1) Anxiety Disorder - Assessment: Patient reports severe anxiety and recent panic attack requiring ambulance transport to [facility]. Symptoms include feeling unable to breathe, dizziness, and heavy breathing. Birq-ymu-uhtsbl r remedies like Nervive have been ineffective. Patient mentions previous successful use of lorazepam 9-10 years ago. - Plan: - Prescribe hydroxyzine for as-needed use for severe anxiety. - Instruct patient to take one tablet and, if not effective, repeat one more after half an hour to an hour. - Schedule follow-up appointment in 2 weeks to assess effectiveness and usage frequency. Fatty Liver - Assessment: Patient reports a previous diagnosis of fatty liver from a scan at [facility]. Patient has been researching potential connections between fatty liver and her symptoms. - Plan: - Encourage patient to continue researching lifestyle modifications to improve liver health. - No changes to current medications related to this issue. Current Medications - Plan: - Continue Venlafaxine 225 mg as prescribed. - Continue Ketoprofen 25 mg, 2 at night as prescribed. Follow-up Appointment - Plan: - Schedule follow-up appointment for 2 weeks after Thanksgiving. - Assess the effectiveness of hydroxyzine and discuss any necessary adjustments to the treatment plan. - Discuss frequency of medication use and whether routine use or different approach is needed. 08/31/2024 Anxiety disorder due to multiple medical problems (ICD-10 - F06.8) Anxiety Disorder - Assessment: Patient reports severe anxiety and recent panic attack requiring ambulance transport to [facility]. Symptoms include feeling unable to breathe, dizziness, and heavy breathing. Mfpg-rxu-wyejqa r remedies like Nervive have been ineffective. Patient mentions previous successful use of lorazepam 9-10 years ago. - Plan: - Prescribe hydroxyzine for as-needed use for severe anxiety. - Instruct patient to take one tablet and, if not effective, repeat one more after half an hour to an hour. - Schedule follow-up appointment in 2 weeks to assess effectiveness and usage frequency. Fatty Liver - Assessment: Patient reports a previous diagnosis of fatty liver from a scan at [facility]. Patient has been researching potential connections between fatty liver and her symptoms. - Plan: - Encourage patient to continue researching lifestyle modifications to improve liver health. - No changes to current medications related to this issue. Current Medications - Plan: - Continue Venlafaxine 225 mg as prescribed. - Continue Ketoprofen 25 mg, 2 at night as prescribed. Follow-up Appointment - Plan: - Schedule follow-up appointment for 2 weeks after Thanksgiving. - Assess the effectiveness of hydroxyzine and discuss any necessary adjustments to the treatment plan. - Discuss frequency of medication use and whether routine use or different approach is needed. 09/14/2024 ROBIN (generalized anxiety disorder) (ICD-10 - F41.1) Anxiety - Assessment: Patient reports some improvement in anxiety with the addition of hydroxyzine, but still experiences irritability and anger, particularly around the holidays. Currently taking two hydroxyzine tablets per day. - Plan: - Continue vilazodone and quetiapine as previously prescribed. - Continue hydroxyzine at the current dose and monitor for further improvement. - Encourage the patient to practice stress management techniques and consider counseling. - Follow-up in one month or sooner if issues arise. Irritability and Anger Management - Assessment: Patient reports ongoing irritability and anger, primarily directed at their roommate. Recognizes excessive reactions, including raising voice and withdrawing. - Plan: - Encourage continued recognition and addressing of anger and irritability. - Consider referral to therapist or counselor for anger management and coping strategies. - Monitor progress in managing irritability and anger during follow-up visits. Insomnia - Assessment: Patient requests refill of qiuetiapine , reports taking two tablets at night. Prefers a 90-day supply. - Plan: - Refill qietiapine prescription for a 90-day supply. - Encourage good sleep hygiene and consider non-pharmacolog ical interventions. - Monitor sleep quality during follow-up visits. Social Support and Living Situation - Assessment: Patient expresses dissatisfaction with current living situation and roommate, acknowledges need for financial assistance. Reports not liking being alone and finding comfort in pet [facility]. - Plan: - Encourage exploration of options for improving living situation. - Support development of healthy coping mechanisms and building social support network. - Monitor living situation and social support during follow-up visits. 11/30/2024 Primary insomnia (ICD-10 - F51.01) discussed the importance of sleep hygiene. 11/30/2024 ROBIN (generalized anxiety disorder) (ICD-10 - F41.1) 07/24/2024 Intermittent chest pain (ICD-10 - R07.9) Anxiety - Assessment: Patient reports persistent anxiety throughout the day, difficulty concentrating, and nervousness. Currently on venlafaxine 75 mg, two in the morning and one in the afternoon. Patient reports feeling like a nervous wreck all day, having trouble coping with things, and occasionally flying off the handle. - Plan: - Increase venlafaxine dose to 50 mg at bedtime. - Schedule a follow-up appointment in two weeks to reassess anxiety levels and medication effectiveness. Insomnia - Assessment: Patient reports difficulty falling asleep, with sleep onset around 5 AM and only getting approximately 4 hours of sleep per night. Patient is out of previously prescribed sleep medication. - Plan: - Prescribe a sleep aid to help improve sleep quality and duration. - Encourage the patient to practice good sleep hygiene, including establishing a regular sleep schedule and creating a relaxing bedtime routine. Memory Issues - Assessment: Patient reports forgetfulness, misplacing items, and occasional difficulty finding the right words or remembering the day. Currently taking memantine for memory issues, prescribed by primary care physician Dr. Jerri Smith. Slump score of 30 out of 30, indicating no present memory issues. Patient reports memory issues started about a year ago and seem to be getting increasingly difficult. - Plan: - Continue memantine as prescribed. - Monitor memory issues during follow-up appointments and consider further evaluation if symptoms worsen or new concerns arise. High Blood Pressure - Assessment: Patient has a history of high blood pressure and is currently on medication for it. Blood pressure needs to be checked during the visit. - Plan: - Check blood pressure during the visit. - Encourage the patient to maintain a healthy lifestyle, including regular exercise, a balanced diet, and stress management techniques. - Continue monitoring blood pressure during follow-up appointments and adjust medication as needed. Weight Loss - Assessment: Patient reports losing weight and dropping two clothing sizes. Patient has a history of lap band surgery a few years ago, resulting in an 80-pound weight loss. - Plan: - Monitor weight during follow-up appointments. - Encourage the patient to maintain a healthy diet and exercise routine to support healthy weight management. Recent ER Visit - Assessment: Patient reports a recent ER visit due to chest pain and shortness of breath, which have since resolved. Patient left the ER without being seen due to long wait times and anxiety. - Plan: - Monitor for any recurrence of chest pain or shortness of breath. - Educate patient on the importance of completing ER visits and following up with primary care physician as needed. 01/04/2025 ROBIN (generalized anxiety disorder) (ICD-10 - F41.1) 02/05/2025 Encounter for screening for depression (ICD-10 - Z13.31) 03/12/2025 Primary insomnia (ICD-10 - F51.01) discussed the importance of sleep hygiene. Patient reports difficulty falling asleep and waking up. Current medication regimen may not be effective. - Consider starting Belsomra for sleep. - Decrease hydroxyzine dosage from 25 mg three times a day to 10 mg three times a day. 03/12/2025 ROBIN (generalized anxiety disorder) (ICD-10 - F41.1) 04/05/2025 ROBIN (generalized anxiety disorder) (ICD-10 - F41.1) Patient reports increased anxiety due to recent financial stress. - Continue Effexor (Venlafaxine) at adjusted dosing to manage anxiety symptoms. 04/05/2025 Major depression, recurrent, full remission (ICD-10 - F33.42) Patient reports ongoing anxiety and frustration. Social anxiety limits interactions. - Continue venlafaxine for anxiety management. - Consider reducing hydroxyzine dosage to minimize fatigue. Patient reports increased stress and anxiety due to financial issues. Current medication regimen is not effectively managing symptoms. - Restart Quetiapine as it was previously effective. - Adjust Effexor (Venlafaxine) dosing to ensure proper management of symptoms. 05/12/2025 ROBIN (generalized anxiety disorder) (ICD-10 - F41.1) History of anxiety with some improvement on current regimen. Patient continues to experience occasional down days. 05/19/2025 Mild cognitive impairment (ICD-10 - G31.84) Interpretation of Results: This assessment is for a female aged 65 to 74. The cognitive testing results are as follows: Attention: Score of 100, which is within the average range for age. Episodic Memory: Score of 85, which is below average, indicating some difficulty with recalling information from specific events or experiences. Response Inhibition: Score of 84, which is below average, suggesting challenges with suppressing automatic or impulsive responses. Visuospatial Working Memory: Result potentially invalid and cannot be reliably interpreted. Mental Rotation: Score of 90, which is average, indicating adequate spatial visualization and mental manipulation abilities. Verbal Short-Term Memory: Score of 93, which is average, suggesting typical capacity for temporarily holding verbal information. Additional Cognitive Assessment Scores: SLUMS Score: 26, which is within the normal range for cognitive screening, indicating no current evidence of dementia. IQCODE Score: 3.63, which is within the typical range and does not suggest significant functional decline as perceived by informants. Summary: The results show generally preserved cognitive abilities in attention, mental rotation, and verbal short-term memory. There are mild weaknesses in episodic memory and response inhibition, which could affect remembering recent events and controlling impulsive actions. The SLUMS and IQCODE scores support a conclusion of intact overall cognitive functioning, though mild executive and memory inefficiencies are present. The visuospatial working memory score cannot be interpreted due to validity concerns. Recommendations for Non-Pharmacologic Treatment: Cognitive Training Engage in activities that specifically target episodic memory, such as storytelling, journaling, or using memory games designed for older adults. Inhibitory Control Exercises Practice games and activities requiring [id number] strategies, such as certain card games, chess, or brain training apps focusing on impulse control. Physical Activity Incorporate regular aerobic exercise and balance training to improve brain health and support executive functions. Mental Stimulation Participate in intellectually engaging activities such as reading, puzzles, learning new skills, or attending lectures and discussion groups. Mindfulness and Meditation Use mindfulness techniques to improve attention control and reduce impulsive responses. Social Engagement Maintain or expand participation in social activities, as social interaction has been linked to better memory retention and executive functioning. Healthy Lifestyle Follow a balanced diet, maintain good hydration, and manage cardiovascular risk factors, as these contribute to cognitive health. Sleep Optimization Ensure adequate, high-quality sleep to support memory consolidation and attention stability. Regular monitoring of memory and executive functioning is recommended to track changes over time and adjust strategies accordingly. 05/12/2025 Major depression, recurrent, full remission (ICD-10 - F33.42) History of depression with current improvement in mood. Patient reports some down days but denies suicidal ideation. Mood is better than previous visits. 03/24/2025 Primary insomnia (ICD-10 - F51.01) Electronic Prior Authorization was requested for Belsomra 10 MG Tablet. Provider can order medication once approval received. 04/05/2025 Primary insomnia (ICD-10 - F51.01) discussed the importance of sleep hygiene. Patient reports difficulty sleeping and ineffective response to Trazodone. - Consider alternative sleep aids if Trazodone continues to be ineffective. - Discuss potential for sleep study if sleep issues persist. 03/12/2025 Major depression, recurrent, full remission (ICD-10 - F33.42) Patient reports ongoing anxiety and frustration. Social anxiety limits interactions. - Continue venlafaxine for anxiety management. - Consider reducing hydroxyzine dosage to minimize fatigue. 02/05/2025 Encounter for screening for cardiovascular disorders (ICD-10 - Z13.6) 07/24/2024 SOB (shortness of breath) (ICD-10 - R06.02) Anxiety - Assessment: Patient reports persistent anxiety throughout the day, difficulty concentrating, and nervousness. Currently on venlafaxine 75 mg, two in the morning and one in the afternoon. Patient reports feeling like a nervous wreck all day, having trouble coping with things, and occasionally flying off the handle. - Plan: - Increase venlafaxine dose to 50 mg at bedtime. - Schedule a follow-up appointment in two weeks to reassess anxiety levels and medication effectiveness. Insomnia - Assessment: Patient reports difficulty falling asleep, with sleep onset around 5 AM and only getting approximately 4 hours of sleep per night. Patient is out of previously prescribed sleep medication. - Plan: - Prescribe a sleep aid to help improve sleep quality and duration. - Encourage the patient to practice good sleep hygiene, including establishing a regular sleep schedule and creating a relaxing bedtime routine. Memory Issues - Assessment: Patient reports forgetfulness, misplacing items, and occasional difficulty finding the right words or remembering the day. Currently taking memantine for memory issues, prescribed by primary care physician Dr. Jerri Smith. Slump score of 30 out of 30, indicating no present memory issues. Patient reports memory issues started about a year ago and seem to be getting increasingly difficult. - Plan: - Continue memantine as prescribed. - Monitor memory issues during follow-up appointments and consider further evaluation if symptoms worsen or new concerns arise. High Blood Pressure - Assessment: Patient has a history of high blood pressure and is currently on medication for it. Blood pressure needs to be checked during the visit. - Plan: - Check blood pressure during the visit. - Encourage the patient to maintain a healthy lifestyle, including regular exercise, a balanced diet, and stress management techniques. - Continue monitoring blood pressure during follow-up appointments and adjust medication as needed. Weight Loss - Assessment: Patient reports losing weight and dropping two clothing sizes. Patient has a history of lap band surgery a few years ago, resulting in an 80-pound weight loss. - Plan: - Monitor weight during follow-up appointments. - Encourage the patient to maintain a healthy diet and exercise routine to support healthy weight management. Recent ER Visit - Assessment: Patient reports a recent ER visit due to chest pain and shortness of breath, which have since resolved. Patient left the ER without being seen due to long wait times and anxiety. - Plan: - Monitor for any recurrence of chest pain or shortness of breath. - Educate patient on the importance of completing ER visits and following up with primary care physician as needed. 01/04/2025 Primary insomnia (ICD-10 - F51.01) discussed the importance of sleep hygiene. 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 Currently taking two hydroxyzine tablets per day. - Plan: - Continue vilazodone and quetiapine as previously prescribed. - Continue hydroxyzine at the current dose and monitor for further improvement. - Encourage the patient to practice stress management techniques and consider counseling. - Follow-up in one month or sooner if issues arise. Irritability and Anger Management - Assessment: Patient reports ongoing irritability and anger, primarily directed at their roommate. Recognizes excessive reactions, including raising voice and withdrawing. - Plan: - Encourage continued recognition and addressing of anger and irritability. - Consider referral to therapist or counselor for anger management and coping strategies. - Monitor progress in managing irritability and anger during follow-up visits. Insomnia - Assessment: Patient requests refill of qiuetiapine , reports taking two tablets at night. Prefers a 90-day supply. - Plan: - Refill qietiapine prescription for a 90-day supply. - Encourage good sleep hygiene and consider non-pharmacolog ical interventions. - Monitor sleep quality during follow-up visits. Social Support and Living Situation - Assessment: Patient expresses dissatisfaction with current living situation and roommate, acknowledges need for financial assistance. Reports not liking being alone and finding comfort in pet [facility]. - Plan: - Encourage exploration of options for improving living situation. - Support development of healthy coping mechanisms and building social support network. - Monitor living situation and social support during follow-up visits. 08/31/2024 Intermittent chest pain (ICD-10 - R07.9) Anxiety Disorder - Assessment: Patient reports severe anxiety and recent panic attack requiring ambulance transport to [facility]. Symptoms include feeling unable to breathe, dizziness, and heavy breathing. Rabp-xoo-pxotql r remedies like Nervive have been ineffective. Patient mentions previous successful use of lorazepam 9-10 years ago. - Plan: - Prescribe hydroxyzine for as-needed use for severe anxiety. - Instruct patient to take one tablet and, if not effective, repeat one more after half an hour to an hour. - Schedule follow-up appointment in 2 weeks to assess effectiveness and usage frequency. Fatty Liver - Assessment: Patient reports a previous diagnosis of fatty liver from a scan at [facility]. Patient has been researching potential connections between fatty liver and her symptoms. - Plan: - Encourage patient to continue researching lifestyle modifications to improve liver health. - No changes to current medications related to this issue. Current Medications - Plan: - Continue Venlafaxine 225 mg as prescribed. - Continue Ketoprofen 25 mg, 2 at night as prescribed. Follow-up Appointment - Plan: - Schedule follow-up appointment for 2 weeks after Thanksgiving. - Assess the effectiveness of hydroxyzine and discuss any necessary adjustments to the treatment plan. - Discuss frequency of medication use and whether routine use or different approach is needed. 07/03/2024 Primary insomnia (ICD-10 - F51.01) Anxiety - Assessment: Mild to moderate anxiety reported by the patient, including feeling jittery and super nervous all the time. - Plan: - Continue venlafaxine 75 mg, switch to slow-release version and take in the morning to avoid potential insomnia side effect. - Monitor and reassess in three weeks. Insomnia - Assessment: Patient reports difficulty sleeping and broken sleep, averaging six hours per night with frequent awakenings. - Plan: - Start quetiapine 25 mg at bedtime for sleep. - Reassess in three weeks and consider increasing to 50 mg if sleep does not improve. - Discuss with primary care provider (PCP) about ordering a sleep study to rule out sleep apnea. Depression - Assessment: Patient reports mild, persistent depression with the last severe episode three weeks ago, lasting a couple of days. - Plan: - Continue venlafaxine 75 mg, switch to slow-release version and take in the morning. - Monitor and reassess in three weeks. Memory Issues - Assessment: Patient reports memory problems and had difficulty with word recall during the visit. - Plan: - Schedule a computer-based memory test to assess the need for medication adjustment. - Encourage the patient to discuss pre-packaged medication options (e.g., bubble pack) with their pharmacy to improve medication adherence. Hypertension - Assessment: Elevated blood pressure noted during the visit. - Plan: - Encourage the patient to follow up with their PCP for blood pressure management. Sleep Apnea - Assessment: Patient has a history of borderline sleep apnea but has not received treatment. - Plan: - Discuss with PCP about ordering a sleep study to reassess sleep apnea. - If the PCP is unable to order the study, consider ordering it during the follow-up visit in three weeks. Medication Management - Assessment: Patient reports difficulty remembering to take medications and relies on a friend for assistance. - Plan: - Discuss pre-packaged medication options (e.g., bubble pack) with the patient's pharmacy to improve medication adherence. Follow-up - Plan: Schedule a follow-up appointment in three weeks to reassess anxiety, insomnia, depression, and memory issues. Discuss the results of the computer-based memory test and any necessary medication adjustments. 07/21/2024 SOB (shortness of breath) (ICD-10 - R06.02) 1. Shortness of Breath and Intermittent Chest Pain - Patient experiencing shortness of breath for 2 days and intermittent left-sided chest pain. - Not evaluated by PCP for these symptoms. - Plan: a. Urgently refer to ER for evaluation including EKG and cardiac workup. b. Patient declined ambulance, will drive self to ER. 2. Insomnia - Patient reports difficulty sleeping at night, with some improvement last night. - Plan: Address underlying cause of shortness of breath and chest pain, which may contribute to insomnia. - follow up visit scheduled with Dr. Larson on 07/24/2024 3. Anxiety - Patient appears significantly anxious, potentially contributing to shortness of breath and insomnia. Self-describes as nervous wreck. - Plan: a. Encourage follow up at scheduled 11th appointment for anxiety evaluation/marcelina montoya. b. go to nearest emergency room to assess cardiac complications. 4. Elevated Blood Pressure - Blood pressure elevated during visit. - Plan: a. Monitor BP during ER visit and address underlying causes. b. Encourage PCP follow up for ongoing BP management. 07/24/2024 Essential (primary) hypertension (ICD-10 - I10) Anxiety - Assessment: Patient reports persistent anxiety throughout the day, difficulty concentrating, and nervousness. Currently on venlafaxine 75 mg, two in the morning and one in the afternoon. Patient reports feeling like a nervous wreck all day, having trouble coping with things, and occasionally flying off the handle. - Plan: - Increase venlafaxine dose to 50 mg at bedtime. - Schedule a follow-up appointment in two weeks to reassess anxiety levels and medication effectiveness. Insomnia - Assessment: Patient reports difficulty falling asleep, with sleep onset around 5 AM and only getting approximately 4 hours of sleep per night. Patient is out of previously prescribed sleep medication. - Plan: - Prescribe a sleep aid to help improve sleep quality and duration. - Encourage the patient to practice good sleep hygiene, including establishing a regular sleep schedule and creating a relaxing bedtime routine. Memory Issues - Assessment: Patient reports forgetfulness, misplacing items, and occasional difficulty finding the right words or remembering the day. Currently taking memantine for memory issues, prescribed by primary care physician Dr. Jerri Smith. Slump score of 30 out of 30, indicating no present memory issues. Patient reports memory issues started about a year ago and seem to be getting increasingly difficult. - Plan: - Continue memantine as prescribed. - Monitor memory issues during follow-up appointments and consider further evaluation if symptoms worsen or new concerns arise. High Blood Pressure - Assessment: Patient has a history of high blood pressure and is currently on medication for it. Blood pressure needs to be checked during the visit. - Plan: - Check blood pressure during the visit. - Encourage the patient to maintain a healthy lifestyle, including regular exercise, a balanced diet, and stress management techniques. - Continue monitoring blood pressure during follow-up appointments and adjust medication as needed. Weight Loss - Assessment: Patient reports losing weight and dropping two clothing sizes. Patient has a history of lap band surgery a few years ago, resulting in an 80-pound weight loss. - Plan: - Monitor weight during follow-up appointments. - Encourage the patient to maintain a healthy diet and exercise routine to support healthy weight management. Recent ER Visit - Assessment: Patient reports a recent ER visit due to chest pain and shortness of breath, which have since resolved. Patient left the ER without being seen due to long wait times and anxiety. - Plan: - Monitor for any recurrence of chest pain or shortness of breath. - Educate patient on the importance of completing ER visits and following up with primary care physician as needed. 07/03/2024 Pure hypercholesterole taylor (ICD-10 - E78.00) Anxiety - Assessment: Mild to moderate anxiety reported by the patient, including feeling jittery and super nervous all the time. - Plan: - Continue venlafaxine 75 mg, switch to slow-release version and take in the morning to avoid potential insomnia side effect. - Monitor and reassess in three weeks. Insomnia - Assessment: Patient reports difficulty sleeping and broken sleep, averaging six hours per night with frequent awakenings. - Plan: - Start quetiapine 25 mg at bedtime for sleep. - Reassess in three weeks and consider increasing to 50 mg if sleep does not improve. - Discuss with primary care provider (PCP) about ordering a sleep study to rule out sleep apnea. Depression - Assessment: Patient reports mild, persistent depression with the last severe episode three weeks ago, lasting a couple of days. - Plan: - Continue venlafaxine 75 mg, switch to slow-release version and take in the morning. - Monitor and reassess in three weeks. Memory Issues - Assessment: Patient reports memory problems and had difficulty with word recall during the visit. - Plan: - Schedule a computer-based memory test to assess the need for medication adjustment. - Encourage the patient to discuss pre-packaged medication options (e.g., bubble pack) with their pharmacy to improve medication adherence. Hypertension - Assessment: Elevated blood pressure noted during the visit. - Plan: - Encourage the patient to follow up with their PCP for blood pressure management. Sleep Apnea - Assessment: Patient has a history of borderline sleep apnea but has not received treatment. - Plan: - Discuss with PCP about ordering a sleep study to reassess sleep apnea. - If the PCP is unable to order the study, consider ordering it during the follow-up visit in three weeks. Medication Management - Assessment: Patient reports difficulty remembering to take medications and relies on a friend for assistance. - Plan: - Discuss pre-packaged medication options (e.g., bubble pack) with the patient's pharmacy to improve medication adherence. Follow-up - Plan: Schedule a follow-up appointment in three weeks to reassess anxiety, insomnia, depression, and memory issues. Discuss the results of the computer-based memory test and any necessary medication adjustments. 08/31/2024 SOB (shortness of breath) (ICD-10 - R06.02) Anxiety Disorder - Assessment: Patient reports severe anxiety and recent panic attack requiring ambulance transport to [facility]. Symptoms include feeling unable to breathe, dizziness, and heavy breathing. Cjsm-emk-wlxgye r remedies like Nervive have been ineffective. Patient mentions previous successful use of lorazepam 9-10 years ago. - Plan: - Prescribe hydroxyzine for as-needed use for severe anxiety. - Instruct patient to take one tablet and, if not effective, repeat one more after half an hour to an hour. - Schedule follow-up appointment in 2 weeks to assess effectiveness and usage frequency. Fatty Liver - Assessment: Patient reports a previous diagnosis of fatty liver from a scan at [facility]. Patient has been researching potential connections between fatty liver and her symptoms. - Plan: - Encourage patient to continue researching lifestyle modifications to improve liver health. - No changes to current medications related to this issue. Current Medications - Plan: - Continue Venlafaxine 225 mg as prescribed. - Continue Ketoprofen 25 mg, 2 at night as prescribed. Follow-up Appointment - Plan: - Schedule follow-up appointment for 2 weeks after Thanksgiving. - Assess the effectiveness of hydroxyzine and discuss any necessary adjustments to the treatment plan. - Discuss frequency of medication use and whether routine use or different approach is needed. 09/14/2024 Intermittent chest pain (ICD-10 - R07.9) Anxiety - Assessment: Patient reports some improvement in anxiety with the addition of hydroxyzine, but still experiences irritability and anger, particularly around the holidays. Currently taking two hydroxyzine tablets per day. - Plan: - Continue vilazodone and quetiapine as previously prescribed. - Continue hydroxyzine at the current dose and monitor for further improvement. - Encourage the patient to practice stress management techniques and consider counseling. - Follow-up in one month or sooner if issues arise. Irritability and Anger Management - Assessment: Patient reports ongoing irritability and anger, primarily directed at their roommate. Recognizes excessive reactions, including raising voice and withdrawing. - Plan: - Encourage continued recognition and addressing of anger and irritability. - Consider referral to therapist or counselor for anger management and coping strategies. - Monitor progress in managing irritability and anger during follow-up visits. Insomnia - Assessment: Patient requests refill of qiuetiapine , reports taking two tablets at night. Prefers a 90-day supply. - Plan: - Refill qietiapine prescription for a 90-day supply. - Encourage good sleep hygiene and consider non-pharmacolog ical interventions. - Monitor sleep quality during follow-up visits. Social Support and Living Situation - Assessment: Patient expresses dissatisfaction with current living situation and roommate, acknowledges need for financial assistance. Reports not liking being alone and finding comfort in [facility]. - Plan: - Encourage exploration of options for improving living situation. - Support development of healthy coping mechanisms and building social support network. - Monitor living situation and social support during follow-up visits. 01/04/2025 Encounter for screening for depression (ICD-10 - Z13.31) 02/05/2025 ROBIN (generalized anxiety disorder) (ICD-10 - F41.1) 03/12/2025 Negative depression screening (ICD-10 - Z13.31) 04/05/2025 Benign essential HTN (ICD-10 - I10) 05/12/2025 Primary insomnia (ICD-10 - F51.01) 05/12/2025 Mild cognitive impairment (ICD-10 - G31.84) Persistent memory issues with increasing forgetfulness and missed appointments. Patient reports needing to write notes to remember tasks. Condition has been ongoing and is now significantly impacting daily life. No evidence of acute delirium or reversible cause identified. - Started Donepezil 5 mg daily. - Ordered cognitive assessment for next week. - Scheduled follow-up appointment in 4 weeks. 05/12/2025 Benign essential HTN (ICD-10 - I10) History of hypertension, currently taking blood pressure medication. Home blood pressure readings are within normal range (130-140/80-90). 04/05/2025 Encounter for screening for depression (ICD-10 - Z13.31) 03/12/2025 Encounter for screening for cardiovascular disorders (ICD-10 - Z13.6) 08/31/2024 Essential (primary) hypertension (ICD-10 - I10) Anxiety Disorder - Assessment: Patient reports severe anxiety and recent panic attack requiring ambulance transport to [facility]. Symptoms include feeling unable to breathe, dizziness, and heavy breathing. Qszj-bpm-qwqlub r remedies like Nervive have been ineffective. Patient mentions previous successful use of lorazepam 9-10 years ago. - Plan: - Prescribe hydroxyzine for as-needed use for severe anxiety. - Instruct patient to take one tablet and, if not effective, repeat one more after half an hour to an hour. - Schedule follow-up appointment in 2 weeks to assess effectiveness and usage frequency. Fatty Liver - Assessment: Patient reports a previous diagnosis of fatty liver from a scan at [facility]. Patient has been researching potential connections between fatty liver and her symptoms. - Plan: - Encourage patient to continue researching lifestyle modifications to improve liver health. - No changes to current medications related to this issue. Current Medications - Plan: - Continue Venlafaxine 225 mg as prescribed. - Continue Ketoprofen 25 mg, 2 at night as prescribed. Follow-up Appointment - Plan: - Schedule follow-up appointment for 2 weeks after Thanksgiving. - Assess the effectiveness of hydroxyzine and discuss any necessary adjustments to the treatment plan. - Discuss frequency of medication use and whether routine use or different approach is needed. 02/05/2025 Primary insomnia (ICD-10 - F51.01) discussed the importance of sleep hygiene. 09/14/2024 SOB (shortness of breath) (ICD-10 - R06.02) Anxiety - Assessment: Patient reports some improvement in anxiety with the addition of hydroxyzine, but still experiences irritability and anger, particularly around the holidays. Currently taking two hydroxyzine tablets per day. - Plan: - Continue vilazodone and quetiapine as previously prescribed. - Continue hydroxyzine at the current dose and monitor for further improvement. - Encourage the patient to practice stress management techniques and consider counseling. - Follow-up in one month or sooner if issues arise. Irritability and Anger Management - Assessment: Patient reports ongoing irritability and anger, primarily directed at their roommate. Recognizes excessive reactions, including raising voice and withdrawing. - Plan: - Encourage continued recognition and addressing of anger and irritability. - Consider referral to therapist or counselor for anger management and coping strategies. - Monitor progress in managing irritability and anger during follow-up visits. Insomnia - Assessment: Patient requests refill of qiuetiapine , reports taking two tablets at night. Prefers a 90-day supply. - Plan: - Refill qietiapine prescription for a 90-day supply. - Encourage good sleep hygiene and consider non-pharmacolog ical interventions. - Monitor sleep quality during follow-up visits. Social Support and Living Situation - Assessment: Patient expresses dissatisfaction with current living situation and roommate, acknowledges need for financial assistance. Reports not liking being alone and finding comfort in [facility]. - Plan: - Encourage exploration of options for improving living situation. - Support development of healthy coping mechanisms and building social support network. - Monitor living situation and social support during follow-up visits. 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 Currently on venlafaxine 75 mg, two in the morning and one in the afternoon. Patient reports feeling like a nervous wreck all day, having trouble coping with things, and occasionally flying off the handle. - Plan: - Increase venlafaxine dose to 50 mg at bedtime. - Schedule a follow-up appointment in two weeks to reassess anxiety levels and medication effectiveness. Insomnia - Assessment: Patient reports difficulty falling asleep, with sleep onset around 5 AM and only getting approximately 4 hours of sleep per night. Patient is out of previously prescribed sleep medication. - Plan: - Prescribe a sleep aid to help improve sleep quality and duration. - Encourage the patient to practice good sleep hygiene, including establishing a regular sleep schedule and creating a relaxing bedtime routine. Memory Issues - Assessment: Patient reports forgetfulness, misplacing items, and occasional difficulty finding the right words or remembering the day. Currently taking memantine for memory issues, prescribed by primary care physician Dr. Jerri Smith. Slump score of 30 out of 30, indicating no present memory issues. Patient reports memory issues started about a year ago and seem to be getting increasingly difficult. - Plan: - Continue memantine as prescribed. - Monitor memory issues during follow-up appointments and consider further evaluation if symptoms worsen or new concerns arise. High Blood Pressure - Assessment: Patient has a history of high blood pressure and is currently on medication for it. Blood pressure needs to be checked during the visit. - Plan: - Check blood pressure during the visit. - Encourage the patient to maintain a healthy lifestyle, including regular exercise, a balanced diet, and stress management techniques. - Continue monitoring blood pressure during follow-up appointments and adjust medication as needed. Weight Loss - Assessment: Patient reports losing weight and dropping two clothing sizes. Patient has a history of lap band surgery a few years ago, resulting in an 80-pound weight loss. - Plan: - Monitor weight during follow-up appointments. - Encourage the patient to maintain a healthy diet and exercise routine to support healthy weight management. Recent ER Visit - Assessment: Patient reports a recent ER visit due to chest pain and shortness of breath, which have since resolved. Patient left the ER without being seen due to long wait times and anxiety. - Plan: - Monitor for any recurrence of chest pain or shortness of breath. - Educate patient on the importance of completing ER visits and following up with primary care physician as needed. 07/03/2024 Morbid obesity (ICD-10 - E66.01) Anxiety - Assessment: Mild to moderate anxiety reported by the patient, including feeling jittery and super nervous all the time. - Plan: - Continue venlafaxine 75 mg, switch to slow-release version and take in the morning to avoid potential insomnia side effect. - Monitor and reassess in three weeks. Insomnia - Assessment: Patient reports difficulty sleeping and broken sleep, averaging six hours per night with frequent awakenings. - Plan: - Start quetiapine 25 mg at bedtime for sleep. - Reassess in three weeks and consider increasing to 50 mg if sleep does not improve. - Discuss with primary care provider (PCP) about ordering a sleep study to rule out sleep apnea. Depression - Assessment: Patient reports mild, persistent depression with the last severe episode three weeks ago, lasting a couple of days. - Plan: - Continue venlafaxine 75 mg, switch to slow-release version and take in the morning. - Monitor and reassess in three weeks. Memory Issues - Assessment: Patient reports memory problems and had difficulty with word recall during the visit. - Plan: - Schedule a computer-based memory test to assess the need for medication adjustment. - Encourage the patient to discuss pre-packaged medication options (e.g., bubble pack) with their pharmacy to improve medication adherence. Hypertension - Assessment: Elevated blood pressure noted during the visit. - Plan: - Encourage the patient to follow up with their PCP for blood pressure management. Sleep Apnea - Assessment: Patient has a history of borderline sleep apnea but has not received treatment. - Plan: - Discuss with PCP about ordering a sleep study to reassess sleep apnea. - If the PCP is unable to order the study, consider ordering it during the follow-up visit in three weeks. Medication Management - Assessment: Patient reports difficulty remembering to take medications and relies on a friend for assistance. - Plan: - Discuss pre-packaged medication options (e.g., bubble pack) with the patient's pharmacy to improve medication adherence. Follow-up - Plan: Schedule a follow-up appointment in three weeks to reassess anxiety, insomnia, depression, and memory issues. Discuss the results of the computer-based memory test and any necessary medication adjustments. 07/03/2024 Mild cognitive impairment (ICD-10 - G31.84) Anxiety - Assessment: Mild to moderate anxiety reported by the patient, including feeling jittery and super nervous all the time. - Plan: - Continue venlafaxine 75 mg, switch to slow-release version and take in the morning to avoid potential insomnia side effect. - Monitor and reassess in three weeks. Insomnia - Assessment: Patient reports difficulty sleeping and broken sleep, averaging six hours per night with frequent awakenings. - Plan: - Start quetiapine 25 mg at bedtime for sleep. - Reassess in three weeks and consider increasing to 50 mg if sleep does not improve. - Discuss with primary care provider (PCP) about ordering a sleep study to rule out sleep apnea. Depression - Assessment: Patient reports mild, persistent depression with the last severe episode three weeks ago, lasting a couple of days. - Plan: - Continue venlafaxine 75 mg, switch to slow-release version and take in the morning. - Monitor and reassess in three weeks. Memory Issues - Assessment: Patient reports memory problems and had difficulty with word recall during the visit. - Plan: - Schedule a computer-based memory test to assess the need for medication adjustment. - Encourage the patient to discuss pre-packaged medication options (e.g., bubble pack) with their pharmacy to improve medication adherence. Hypertension - Assessment: Elevated blood pressure noted during the visit. - Plan: - Encourage the patient to follow up with their PCP for blood pressure management. Sleep Apnea - Assessment: Patient has a history of borderline sleep apnea but has not received treatment. - Plan: - Discuss with PCP about ordering a sleep study to reassess sleep apnea. - If the PCP is unable to order the study, consider ordering it during the follow-up visit in three weeks. Medication Management - Assessment: Patient reports difficulty remembering to take medications and relies on a friend for assistance. - Plan: - Discuss pre-packaged medication options (e.g., bubble pack) with the patient's pharmacy to improve medication adherence. Follow-up - Plan: Schedule a follow-up appointment in three weeks to reassess anxiety, insomnia, depression, and memory issues. Discuss the results of the computer-based memory test and any necessary medication adjustments. 09/14/2024 Essential (primary) hypertension (ICD-10 - I10) Anxiety - Assessment: Patient reports some improvement in anxiety with the addition of hydroxyzine, but still experiences irritability and anger, particularly around the holidays. Currently taking two hydroxyzine tablets per day. - Plan: - Continue vilazodone and quetiapine as previously prescribed. - Continue hydroxyzine at the current dose and monitor for further improvement. - Encourage the patient to practice stress management techniques and consider counseling. - Follow-up in one month or sooner if issues arise. Irritability and Anger Management - Assessment: Patient reports ongoing irritability and anger, primarily directed at their roommate. Recognizes excessive reactions, including raising voice and withdrawing. - Plan: - Encourage continued recognition and addressing of anger and irritability. - Consider referral to therapist or counselor for anger management and coping strategies. - Monitor progress in managing irritability and anger during follow-up visits. Insomnia - Assessment: Patient requests refill of qiuetiapine , reports taking two tablets at night. Prefers a 90-day supply. - Plan: - Refill qietiapine prescription for a 90-day supply. - Encourage good sleep hygiene and consider non-pharmacolog ical interventions. - Monitor sleep quality during follow-up visits. Social Support and Living Situation - Assessment: Patient expresses dissatisfaction with current living situation and roommate, acknowledges need for financial assistance. Reports not liking being alone and finding comfort in [facility]. - Plan: - Encourage exploration of options for improving living situation. - Support development of healthy coping mechanisms and building social support network. - Monitor living situation and social support during follow-up visits. 03/12/2025 Dietary counseling and surveillance (ICD-10 - Z71.3) 04/05/2025 Mild cognitive impairment (ICD-10 - G31.84) Patient reports memory issues and has not completed recommended memory test. - Schedule memory test to assess cognitive function. - Consider cognitive therapy or interventions based on test results. 03/12/2025 Benign essential HTN (ICD-10 - I10) 03/12/2025 Mild cognitive disorder (ICD-10 - F09) 08/31/2024 Other Imported from [facility]: 24, the patient was seen by Dr. Jerri Sanchez. Two significant issues were addressed during this visit. Firstly, the patient received an influenza vaccine as a preventive measure for the upcoming flu season. Secondly, a mass was identified in the patient's neck. The nature Anxiety Disorder - Assessment: Patient reports severe anxiety and recent panic attack requiring ambulance transport to [facility]. Symptoms include feeling unable to breathe, dizziness, and heavy breathing. Wqzf-oko-sbbvch r remedies like Nervive have been ineffective. Patient mentions previous successful use of lorazepam 9-10 years ago. - Plan: - Prescribe hydroxyzine for as-needed use for severe anxiety. - Instruct patient to take one tablet and, if not effective, repeat one more after half an hour to an hour. - Schedule follow-up appointment in 2 weeks to assess effectiveness and usage frequency. Fatty Liver - Assessment: Patient reports a previous diagnosis of fatty liver from a scan at [facility]. Patient has been researching potential connections between fatty liver and her symptoms. - Plan: - Encourage patient to continue researching lifestyle modifications to improve liver health. - No changes to current medications related to this issue. Current Medications - Plan: - Continue Venlafaxine 225 mg as prescribed. - Continue Ketoprofen 25 mg, 2 at night as prescribed. Follow-up Appointment - Plan: - Schedule follow-up appointment for 2 weeks after Thanksgiving. - Assess the effectiveness of hydroxyzine and discuss any necessary adjustments to the treatment plan. - Discuss frequency of medication use and whether routine use or different approach is needed. 09/14/2024 Other referral to the local chapter or national office of the Alzheimer's Association ( ; http://www.alz. org), the Alzheimer's [facility] ([facility]) ( ; http://www.sheridan. nih.gov/Alzheim ers/), Anxiety - Assessment: Patient reports some improvement in anxiety with the addition of hydroxyzine, but still experiences irritability and anger, particularly around the holidays. Currently taking two hydroxyzine tablets per day. - Plan: - Continue vilazodone and quetiapine as previously prescribed. - Continue hydroxyzine at the current dose and monitor for further improvement. - Encourage the patient to practice stress management techniques and consider counseling. - Follow-up in one month or sooner if issues arise. Irritability and Anger Management - Assessment: Patient reports ongoing irritability and anger, primarily directed at their roommate. Recognizes excessive reactions, including raising voice and withdrawing. - Plan: - Encourage continued recognition and addressing of anger and irritability. - Consider referral to therapist or counselor for anger management and coping strategies. - Monitor progress in managing irritability and anger during follow-up visits. Insomnia - Assessment: Patient requests refill of qiuetiapine , reports taking two tablets at night. Prefers a 90-day supply. - Plan: - Refill qietiapine prescription for a 90-day supply. - Encourage good sleep hygiene and consider non-pharmacolog ical interventions. - Monitor sleep quality during follow-up visits. Social Support and Living Situation - Assessment: Patient expresses dissatisfaction with current living situation and roommate, acknowledges need for financial assistance. Reports not liking being alone and finding comfort in [facility]. - Plan: - Encourage exploration of options for improving living situation. - Support development of healthy coping mechanisms and building social support network. - Monitor living situation and social support during follow-up visits. 11/30/2024 Other 1. Generalized Anxiety Disorder (ROBIN) - ROBIN-7 score increased from 5 to 16 since September. - Hydroxyzine provided some relief, but not a satisfactory amount, but ran out. - Plan: a. Increase hydroxyzine to 25mg 3 times a day as needed. b. Monitor response to increased hydroxyzine dosage. c. discussed risk of hydroxyzine in geriatric patients. emphasized importance of hydration and fall precautions. 2. Depression - Churchill Depression Inventory score increased to 13 from PHQ-9 score of 2 in September. - Patient reports decreased activity and difficulty concentrating. - Plan: a. venlafaxine from 75mg (3 capsules daily) b. Encouraged initiation of therapy. c. Discussed extended release- patient refused. 3. Insomnia - Patient reports trouble sleeping and frequent waking despite quetiapine use. - Plan: a. Maintain quetiapine dose 25 mg (2 capsules) HS b. Discussed extended release formulation- patient denied. c. Encourage taking venlafaxine in the morning to avoid insomnia. 4. Medication Refills - Plan: a. Send 3 months' worth of refills for quetiapine, hydroxyzine and venlafaxine. 5. Follow-Up - Schedule follow-up appointment with Dr. Cavanaugh 01/04/25 - Encourage earlier appointment if issues arise before scheduled follow-up. - encouraged to come to the walk in sooner if needing to be seen before scheduled appointment. 6. Patient Education - Inform about potential side effects of current medications and when to seek emergency services. 01/04/2025 Marilyn Paige, a female patient on Social Security, presents with worsening anxiety and depression, experiencing persistent nervousness, hand tremors, and gastrointestinal issues since of the previous year. Generalized Anxiety Disorder with Panic Attacks Assessment: Patient reports ongoing anxiety symptoms, including persistent nervousness, hand tremors, and frequent diarrhea. She experienced a panic attack in , initially mistaken for a stroke. Recent medication changes, including an increase in venlafaxine to 150 mg daily and the addition of hydroxyzine, have not adequately controlled symptoms. Financial stressors and housing insecurity are contributing to her anxiety. Previous use of lorazepam provided some relief, but it is no longer part of her regimen. Plan: - Start buspirone three times daily for anxiety management - Continue venlafaxine 150 mg PO daily - Continue hydroxyzine as currently prescribed - Gradually decrease hydroxyzine if buspirone proves effective - Follow up in 4 weeks to assess response to new medication regimen Major Depressive Disorder Assessment: Patient reports worsening depressive symptoms, including anhedonia and decreased motivation. Current treatment with venlafaxine 150 mg daily appears to be insufficient in managing symptoms. Plan: - Continue venlafaxine 150 mg PO daily - Encourage engagement in pleasurable activities, such as playing music - Monitor for changes in mood during follow-up appointment Insomnia Assessment: Patient reports improved sleep with current medication regimen, which includes quetiapine at bedtime. Plan: - Change quetiapine to 50 mg PO at bedtime - Continue memantine as previously prescribed (dose not specified) Disclaimer: This note has been transcribed using speech recognition software and serves as a reflection of the patient's visit. While efforts have been made to ensure accuracy, there may be errors, including seed sales manager inaccuracies and misspellings of medication names. This document should not be considered a verbatim record, and any discrepancies should be verified with the provider. 02/05/2025 Marilyn Melvina Royal presents with ongoing irritability, anger outbursts, and depressive symptoms, reporting limited effectiveness of current medication regimen including Buspar, quetiapine, venlafaxine, and hydroxyzine. Irritability and Anger Management Issues Assessment: Patient reports persistent irritability and anger outbursts, particularly in response to everyday situations and interactions with others. These symptoms are causing significant functional impairment, leading to social withdrawal and avoidance of public spaces. The current medication regimen, including Buspar 5 mg TID, has shown limited efficacy in managing these symptoms. Quetiapine, taken at night, may be providing some benefit but appears insufficient at the current dose. Plan: - Increase quetiapine to 100 mg PO qHS - Patient informed that this adjustment aims to improve irritability control and increase tolerance to frustrating situations - Continue venlafaxine at current dose (dose not specified in transcript) - Continue hydroxyzine at current dose (dose not specified in transcript) - Discontinue Buspar 5 mg TID due to limited efficacy - Schedule follow-up appointment in one month to reassess symptom management and medication efficacy Depressive Symptoms Assessment: Patient reports experiencing depressive symptoms, which appear to be concurrent with the irritability and anger management issues. The extent and severity of these symptoms were not fully explored during this encounter, but they are noted as a significant concern for the patient. Plan: - Continue current antidepressant regimen (venlafaxine, dose not specified) - Monitor for changes in depressive symptoms with the adjustment of quetiapine dose - Reassess depressive symptoms at next follow-up appointment Anxiety Assessment: Patient reports ongoing anxiety symptoms, which may be contributing to the irritability and social avoidance behaviors. Current anxiolytic medications (hydroxyzine and previously Buspar) have shown limited effectiveness in managing these symptoms. Plan: - Increase hydroxyzine dose (specific increase not mentioned in transcript) - Discontinue Buspar 5 mg TID due to limited efficacy - Evaluate effectiveness of increased hydroxyzine dose at next follow-up appointment Disclaimer: This note has been transcribed using speech recognition software and serves as a reflection of the patient's visit. While efforts have been made to ensure accuracy, there may be errors, including seed sales manager inaccuracies and misspellings of medication names. This document should not be considered a verbatim record, and any discrepancies should be verified with the provider. 04/05/2025 Other Gait, Strength, and Balance Training ExercisesThis handout provides simple exercises to improve your gait, strength, and balance. Theseexercises can help prevent falls, improve mobility, and enhance overall function. Perform them in asafe space, use support if needed, and stop if you feel pain or dizziness.1. Gait Training Exercises- Walk in a straight line for 10-20 feet, heel-to-toe.- Step over small objects (cones or rolled towels).- Practice walking sideways and backwards.- Use a treadmill if available, under supervision.2. Balance Exercises- Stand on one foot for 10-30 seconds; switch legs.- Walk heel-to-toe in a straight line.- Use a balance board or cushion to challenge stability.- Practice rising from a chair without using your hands.3. Strength Training Exercises- Qgt-[id number]: rise from a chair repeatedly.- Wall push-ups: stand at arm's length from a wall and push.- Step-ups on a low step or stairs.- Leg lifts while seated or lying down.Consult your primary care provider (PCP) before starting these exercises, especially if you havemedical conditions or difficulty performing them 05/12/2025 Other Plan Of Treatment Pending Test Test Name Order Date UDT 07/03/2024 Future Test Test Name Order Date SLUMS Testing 03/12/2025 SLUMS Testing 05/12/2025 Next Appt Details Provider Name:Ramsey Cavanaugh , 06/09/2025 01:15:00 PM, [address], [facility] [address], [place], [address], Insurance Providers Payer Name Payer Address Payer Phone Subscriber Number Group Number Insured Name Patient Relationship to Insured Coverage Start Date Coverage End Date [facility] [address] [place] [address] [id number] Melvina Paige Self - patient is the insured Medical (General) History Medical History History ICD Code hypercholesterolemia Hypertension Major depression, in remission Generalized anxiety disorder Mild cognitive impairment Surgical History Surgery Date(Month/Year) galbladder removal Hospitalization History Reason Date(Month/Year) sent to the emergency room for chest margie n and SOB 07/21/2024
--- OUTSIDE RECORDS SUMMARY | 2025-05-26 10:42 | XMS_ITS | Clinical Summary ---
Author Organization [facility] Address [address] [place] [address] Care Team Providers Care Software Developer Intern Name Role Phone Jerri Sanchez MD Primary Care Provider [phone] Source Comments [facility],non-owned Affiliates and Associated Physician Practices is amultiple site organization consisting of ambulatory clinics and hospital sitesin [place], [place], [place] and [place]. This disclosure is being madepursuant to the Care Everywhere program and may not contain all information available regarding this patient. Last updated 18.[facility] Allergies Active Allergy Reactions Criticality Noted Date Comments Cephalexin Unknown 05/09/2012 Penicillins Unknown 06/03/2018 Prednisone Psychiatric High 08/11/2018 NERVOUS Sertraline Unknown 05/09/2012 Medications * This document contains information received from the source organization and may not represent a complete record from that organization. * Be aware that medications may not be up to date on this document. Alwaysverify current medications with the patient. ALPRAZolam (XANAX) 1 MG tablet alprazolam 1 mg tablet qid Active atorvastatin (LIPITOR) 40 MG tablet atorvastatin 40 mg tablet daily Active citalopram (CELEXA) 40 MG tablet citalopram 40 mg tablet daily Active lisinopril (PRINIVIL; ZESTRIL) 20 MG tablet lisinopril 20 mg tablet Active prochlorperazi ne (COMPAZINE) 10 MG tablet prochlorperazine maleate 10 mg tablet prn Active vitamin D (CHOLECACIFERO L) 5000 UNITS capsule Take 5,000 IU daily Active vitamin E (TOCOPHERYL) 100 UNIT capsule Active Menaquinone-7 (VITAMIN K2) 40 MCG TABS Take by mouth once daily Active pancrelipase (ZENPEP) 18949-89600 UNITS capsule Take 2 capsules by mouth 3 times daily with meals Takes 1 with snacks 240 capsule 5 11/10/19 19 Active Additional Information Patient not taking.Reported on 04/29/2024 pantoprazole EC (PROTONIX) 40 MG tablet Take 1 tablet by mouth once daily 30 tablet 2 12/10/19 19 Active Additional Information Patient not taking.Reported on 04/29/2024 hyoscyamine 0.125 MG SL tablet Dissolve 1 tablet under the tongue every 4 hours as needed for Spasms 90 tablet 3 12/10/19 19 Active Additional Information Patient not taking.Reported on 04/29/2024 albuterol HFA (PROVENTIL;NATHALIA TOLIN;PROAIR) 108 (90 Base) MCG/ACT inhaler Inhale 2 puffs by mouth every 4 hours as needed 1 g 2 04/02/20 Active Additional Information Patient not taking.Reported on 04/29/2024 memantine (Namenda) 10 MG tablet Take 1 (one) tablet by mouth 2 times daily Active Ozempic, 1 MG/DOSE, 4 MG/3ML pen INJECT 1 MG SUBCUTANEOUSLY EVERY WEEK FOR 28 DAYS. Active telmisartan (Micardis) 40 MG tablet Take 1 (one) tablet by mouth once daily Activ e venlafaxine (Effexor) 75 MG tablet Take 2 in the morning and 1 in the evening 90 tablet 4 04/29/20 24 Active Active Problems Problem Noted Date Diagnosed Date Pancreatic insufficiency 10/21/2018 Chronic hepatitis C without hepatic coma 019 Overview (11/13/2018): 10/31/18 Fibroscan CAP 259, E 4.7 kPa Assessment & Plan (10/22/2018 11:55 AM MARINE FARMER): Reports that was treated (twice) with interferon-based therapy by Dr Herrera and was told she was cured. Original liver biopsy [id number] done in October 1999 showed CHB Grade 3, Stage 3 Social History Tobacco Use Types Packs/Day Years Used Date Smoking Tobacco: Never Smokeless Tobacco: Never Tobacco Cessation:Counseling Given: Not Answered Comments:quit Alcohol Use Standard Drinks/Week Comments Yes 0 (1 standard drink = 0.6 oz pure alcohol) currently abstinent, previous use occasional PHQ-2 Answer Date Recorded Patient Health Questionnaire-2 Score 3 04/29/2024 Comments Unknown Sex and Gender Information Value Date Recorded Sex Assigned at Not on file Legal Sex Female 2:55 PM MARINE FARMER Gender Identity Not on file Sexual Orientation Not on file Last Filed Vital Signs Vital Sign Reading Time Taken Comments Blood Pressure 155/85 08/24/2024 9:30 PM MARINE FARMER Pulse 75 08/24/2024 9:30 PM MARINE FARMER Temperature 36.6 C (97.8 F) 08/24/2024 7:03 PM MARINE FARMER Respiratory Rate 25 08/24/2024 9:30 PM MARINE FARMER Oxygen Saturation 95% 08/24/2024 9:30 PM MARINE FARMER Inhaled Oxygen Concentration - - Weight 86.2 kg (190 lb) 08/24/2024 7:03 PM MARINE FARMER Height 162.6 cm (5' 4) 08/24/2024 7:03 PM MARINE FARMER Body Mass Index 32.61 08/24/2024 7:03 PM MARINE FARMER Plan of Treatment Health Maintenance Due Date Last Done Comments BONE DENSITY TESTING 1950 COLOGUARD (AGES 45-75) - COLON CA SCREENING 1950 COLON MONITORING 1950 COLONOSCOPY - COLON CA SCREENING 1950 CT COLONOGRAPHY - COLON CA SCREENING 1950 Colorectal Cancer Screening 1950 FIT - COLON CA SCREENING 1950 FLEX SIG - COLON CA SCREENING 1950 MAMMOGRAM 1950 DTAP/TDAP/TD VACCINES (1 - Tdap) 1969 PNEUMOCOCCAL VACCINE 50+ (1 of 2 - PCV) 1969 ZOSTER VACCINE (1 of 2) 2000 HEPATITIS B VACCINE (1 of 3 - Risk 3-dose series) 2010 Respiratory Syncytial Virus (RSV) Vaccine Pt: or over 60 yrs (1 - Risk 60-74 years 1-dose series) 2010 COVID-19 VACCINE ( season) 2024 10/09/2023, 06/25/2022, 08/22/2021, Additional history exists DEPRESSION SCREENING 10/14/2024 04/29/2024 MEDICARE AWV CALENDAR YEAR 2024 INFLUENZA VACCINE (#1) 2025 4, 08/19/2023, 11/19/2022, Additional history exists HEPATITIS C SCREENING Completed 10/31/2018 , 10/21/2018, 10/21/2018 HIB VACCINE Aged Out No longer eligi ble based on patient's age to complete this topic HPV VACCINE Aged Out No longer eligi ble based on patient's age to complete this topic MENINGOCOCCAL (Group B) VACCINE SHARED DECISION-MAKING Aged Out No longer eligible based on patient's age to complete this topic MENINGOCOCCAL GROUPS A/C/Y/W VACCINE Aged Out No longer eligible based on patient's age to complete this topic Goals Goal Patient Goal Type Associated Problems Recent Progress Patient-Stated? Author Safety General On track( 4:22 PM MARINE FARMER) No Bety Wells, MAGED Note: Expected end date: Ongoing Interventions: Your nurse will assess your risk for falls/injury each visit Use appropriate and safe transfer methods Medication Management General On track( 4:22 PM MARINE FARMER) No Bety Wells, MAGED Note: Expected end date: Ongoing Interventions: Take all medications as prescribed Let your doctor know right away about any changes in your medications Procedures Procedure Name Priority Date/Time Associated Diagnosis Comments HEPATITIS C RNA QUANTITATIVE Routine 10/21/2018 4:27 PM MARINE FARMER Pancreatic insufficiency from Last 3 Months or Most Recently Relevant to Health Maintenance Results * HEPATITIS C RNA QUANTITATIVE (10/21/2018 4:27 PM MARINE FARMER) Hepatitis C RNA PCR, Interp Not Detected Not Detected 10/24/2018 8:04 AM [facility] Blood BLOOD SPECIMEN / Unknown Lab Venipuncture / Unknown 10/21/2018 4:27 PM MARINE FARMER 10/21/2018 4:32 PM MARINE FARMER Narrative [facility] PATHOLOGY [facility] - 10/24/2018 8:04 AM MARINE FARMER The Hepatitis C viral (HCV) RNA analysis utilized a serum sample, real-time reverse glove stitcher PCR, and is reported as Not Detected, Detected (<12 IU/mL), Quantity (IU/mL) or >100,000,000 IU/mL. The limit of quantitation of the assay is 12 IU/mL (100% of samples with this HCV RNA level were detected). The linear range is from 12 IU/mL to 100,000,000 IU/mL. Values less than 12 IU/mL are reported as Detected (<12 IU/mL). Values greater than 100,000,000 IU/mL are reported as > 100,000,000 IU/mL. The detection/quantitation of HCV RNA in serum is based on the isolation of HCV RNA with reverse glove stitcher of genomic HCV RNA followed by real-time PCR in the presence of an unrelated RNA internal control. The internal control ensures that RNA is isolated, and that no general significant inhibitors of the RT-PCR process are present. The analysis was performed using a U.S. FDA approved test methodology (Cap That Real Time HCV). Len Swanson MD LAB - CHEMISTRY ORDERAB LES Final Result U PATHOLOGY LAB [facility] [phone] from Last 3 Months or Most Recently Relevant to Health Maintenance Insurance [facility] [employer] MEDICARE [facility] MEDICARE ADV [facility] MEDICARE ADV MEDICARE [facility] MEDICARE ADV Care Teams Software Developer Intern Relationship Specialty Start Date End Date Jerri Sanchez MD [address] [address] PCP - General 10/21/18
--- OUTSIDE RECORDS SUMMARY | 2025-05-26 10:42 | XMS_ITS | Clinical Summary ---
Author Organization [facility] Address [address] [place] [address] Care Team Providers Care Medication Coordinator Name Role Phone Unavailable Primary Care Provider Unavailabl e Social History Tobacco Use Types Packs/Day Years Used Date Smoking Tobacco: Never Assessed Comments Unknown Sex and Gender Information Value Date Recorded Sex Assigned at Not on file Legal Sex Female 7:45 PM CDT Gender Identity Not on file Sexual Orientation Not on file Plan of Treatment Health Maintenance Due Date Last Done Comments Colorectal Cancer Screening Colonoscopy (10 Years) 1950 Hepatitis C 1968 DTaP, Tdap and Td Vaccines ( 1 - Tdap) 1969 Mammogram Screening 1990 Pneumococcal Vaccine: 50+ Ye ars (1 of 1 - PCV) 2000 Zoster Vaccines (1 of 2) 2000 Dexa Scan (General) 2015 COVID-19 Vaccine ( - 2023-2 5 season) 2024 RSV Immunization or 60+ Years (1 - 1-dose 75+ series) 2025 Meningococcal B Vaccine Aged Out No l onger eligible based on patient's age to complete this topic Meningococcal Vaccine Aged Out No aron day eligible based on patient's age to complete this topic RSV Immunizations Under 20 Months Aged Out No longer eligible based on patient's age to complete this topic
--- OUTSIDE RECORDS SUMMARY | 2025-05-26 10:42 | XMS_ITS | Encounter Summary ---
Author Organization [facility] Address [address] [place] [address] Phone Care Team Providers Care Hand Spray Operator Name Role Phone Jerri Sanchez MD Primary Care Provider [phone] Charmaine Becerra MD Unavailable [phone] Encounter Details Date Type Department Care Team (Late st Contact Info) Description 05/10/2020 Orders Only [facility] [phone] Scanning, Provider Social History Tobacco Use Types Packs/Day Years Used Date Smoking Tobacco: Former Smokeless Tobacco: Never Alcohol Use Standard Drinks/Week Comments No 0 (1 standard drink = 0.6 oz pur e alcohol) Comments Unknown Sex and Gender Information Value Date Recorded Sex Assigned at Not on file Legal Sex Female 9:41 PM DIRECTOR OF COUNTERINTELLIGENCE Gender Identity Not on file Sexual Orientation Not on file documented as of this encounter Plan of Treatment Not on file documented as of this encounter Procedures Procedure Name Priority Date/Time Associated Diagnosis Comments SCAN - RADIOLOGY/IMAGING 05/10/2020 documented in this encounter Results * SCAN - RADIOLOGY/IMAGING (05/10/2020) Anatomical Region Laterality Modality Other us Provider Scanning Final Result documented in this encounter Visit Diagnoses Not on filedocumented in this encounter Additional Health Concerns Infection Onset Date Last Indicated Resolved Time COVID: Recovered Comment:Pt tested COVID+ 10/19/20. Pt has been afebrile off antipyretics >24hrs. Results in media section Ciara Manzano 12/22/2020 10/29/2020 12/22/2020 02/26/2021 3:0 5 AM CDT documented as of this encounter Care Teams Hand Spray Operator Relationship Specialty Start Date End Date Jerri Sanchez MD [address] [place] [address] PCP - General 11/14/17 Charmaine Becerra MD [address] [place] [address] Consulting Physician Gastroenterology 06/01/21 documented as of this encounter
[2025-05-26 11:05] VITALS: PULSE 73; TEMP 36.4
[2025-05-26 11:07] LABS: Hematocrit 39.0 % (37.0-47.0); Hemoglobin 12.9 g/dL (12.0-15.0); Immature Granulocyte Percent A 0.2 % (0-0.5); Lymphocytes Absolute Auto 1.26 K/mm3 (0.9-3.2); Mean Corpuscular HGB Conc 33.1 g/dl (32-36); Mean Corpuscular Hemoglobin 31.6 pg (26-34); Mean Corpuscular Volume 95.6 fl (80-100); Nucleated Red Blood Cells Absolute Auto 0.000 K/mm3 (0.0-0.012); Nucleated Red Blood Cells Perc 0.0 % (0.0-0.2); Platelet Count Result 150 k/mm3 (150-375); Red Blood Count 4.08 M/mm3 (4.2-5.4); White Blood Count 4.7 K/mm3 (4.5-10.0)
--- OUTSIDE RECORDS SUMMARY | 2025-05-26 11:12 | XMS_ITS | Clinical Summary ---
Author Organization [email or web address] Address [address] [place] [address] Care Team Providers Care Color Dipper Name Role Phone Jerri Sanchez MD Primary Care Provider [phone] Source Comments [email or web address],non-owned Affiliates and Associated Physician Practices is amultiple site organization consisting of ambulatory clinics and hospital sitesin [place], [place], [place] and [place]. This disclosure is being madepursuant to the Care Everywhere program and may not contain all information available regarding this patient. Last updated 18.[email or web address] Allergies Active Allergy Reactions Criticality Noted Date [...] by mouth once daily Active pancrelipase (ZENPEP) 77147-22910 UNITS capsule Take 2 capsules by mouth [...] kPa Assessment & Plan (10/22/2018 11:55 AM LIGHT ARMORED RECONNAISSANCE OFFICER): Reports that was treated (twice) with interferon-based [...] on file Legal Sex Female 2:55 PM LIGHT ARMORED RECONNAISSANCE OFFICER Gender Identity Not on file Sexual Orientation Not on file Last Filed Vital Signs Vital Sign Reading Time Taken Comments Blood Pressure 155/85 08/24/2024 9:30 PM LIGHT ARMORED RECONNAISSANCE OFFICER Pulse 75 08/24/2024 9:30 PM LIGHT ARMORED RECONNAISSANCE OFFICER Temperature 36.6 C (97.8 F) 08/24/2024 7:03 PM LIGHT ARMORED RECONNAISSANCE OFFICER Respiratory Rate 25 08/24/2024 9:30 PM LIGHT ARMORED RECONNAISSANCE OFFICER Oxygen Saturation 95% 08/24/2024 9:30 PM LIGHT ARMORED RECONNAISSANCE OFFICER Inhaled Oxygen Concentration - - Weight 86.2 kg (190 lb) 08/24/2024 7:03 PM LIGHT ARMORED RECONNAISSANCE OFFICER Height 162.6 cm (5' 4) 08/24/2024 7:03 PM LIGHT ARMORED RECONNAISSANCE OFFICER Body Mass Index 32.61 08/24/2024 7:03 PM LIGHT ARMORED RECONNAISSANCE OFFICER Plan of Treatment Health Maintenance Due Date [...] Author Safety General On track( 4:22 PM LIGHT ARMORED RECONNAISSANCE OFFICER) No Bety Wells, MAGED Note: Expected end date: Ongoing Interventions: Your nurse will assess your risk for falls/injury each visit Use appropriate and safe transfer methods Medication Management General On track( 4:22 PM LIGHT ARMORED RECONNAISSANCE OFFICER) No Bety Wells, MAGED Note: Expected end date: Ongoing Interventions: Take all medications as prescribed Let your doctor know right away about any changes in your medications Procedures Procedure Name Priority Date/Time Associated Diagnosis Comments HEPATITIS C RNA QUANTITATIVE Routine 10/21/2018 4:27 PM LIGHT ARMORED RECONNAISSANCE OFFICER Pancreatic insufficiency from Last 3 Months or Most Recently Relevant to Health Maintenance Results * HEPATITIS C RNA QUANTITATIVE (10/21/2018 4:27 PM LIGHT ARMORED RECONNAISSANCE OFFICER) Hepatitis C RNA PCR, Interp Not Detected Not Detected 10/24/2018 8:04 AM [facility] PATH[facility] LAB Blood BLOOD SPECIMEN / Unknown Lab Venipuncture / Unknown 10/21/2018 4:27 PM LIGHT ARMORED RECONNAISSANCE OFFICER 10/21/2018 4:32 PM LIGHT ARMORED RECONNAISSANCE OFFICER Narrative [facility] PATHOLOGY LAB - 10/24/2018 8:04 AM LIGHT ARMORED RECONNAISSANCE OFFICER The Hepatitis C viral (HCV) RNA analysis utilized a serum sample, real-time reverse instructor painting PCR, and is reported as Not Detected, [...] the isolation of HCV RNA with reverse instructor painting of genomic HCV RNA followed by real-time PCR in the presence of an unrelated RNA internal control. The internal control ensures that RNA is isolated, and that no general significant inhibitors of the RT-PCR process are present. The analysis was performed using a U.S. FDA approved test methodology (DocSpera Real Time HCV). Len Swanson MD LAB - CHEMISTRY ORDERAB LES Final Result U PATHOLOGY LAB [facility] [address] [phone] from Last 3 Months or Most Recently Relevant to Health Maintenance Insurance [facility] [employer] PL[employer] MEDICARE [facility] MEDICARE ADV [facility] MEDICARE ADV MEDICARE [facility] MEDICARE ADV Care Teams Color Dipper Relationship Specialty Start Date End Date Jerri Sanchez MD [address] [address] PCP - General 10/21/18
--- OUTSIDE RECORDS SUMMARY | 2025-05-26 11:12 | XMS_ITS | Clinical Summary ---
Author Organization [facility] Address [address] [place] [address] Care Team Providers Care Automatic Head Sawyer Name Role Phone Unavailable Primary Care Provider [...]
--- OUTSIDE RECORDS SUMMARY | 2025-05-26 11:12 | XMS_ITS | Encounter Summary ---
Author Organization [facility] Address [address] [place] [address] Phone Care Team Providers Care Deputy Fire Marshal Name Role Phone Jerri Sanchez MD Primary Care Provider [phone] Charmaine Becerra MD Unavailable [phone] Encounter Details Date Type Department Care Team (Late st Contact Info) Description 05/10/2020 Orders Only [facility] [phone] Scanning, Provider Social History Tobacco Use Types Packs/Day Years Used Date Smoking Tobacco: Former Smokeless Tobacco: Never Alcohol Use Standard Drinks/Week Comments No 0 (1 standard drink = 0.6 oz pur e alcohol) Comments Unknown Sex and Gender Information Value Date Recorded Sex Assigned at Not on file Legal Sex Female 9:41 PM AFTER SCHOOL PROGRAM COORDINATOR Gender Identity Not on file Sexual Orientation [...] documented as of this encounter Care Teams Deputy Fire Marshal Relationship Specialty Start Date End Date Jerri Sanchez MD [address] [place] [address] PCP - General 11/14/17 Charmaine Becerra MD [address] [place] [address] Consulting Physician Gastroenterology 06/01/21 documented as of this encounter
--- OUTSIDE RECORDS SUMMARY | 2025-05-26 11:12 | XMS_ITS | Clinical Summary ---
Author Organization [facility] Address [address] [place] [address] Care Team Providers Care Drill Doctor Name Role Phone Jerri Sanchez MD Primary Care Provider [phone] Charmaine Becerra MD Unavailable [phone] Allergies Active Allergy Reactions Criticality Noted Date [...] (07/27/2021): Added automatically from request for surgery [id number] Assessment & Plan (2021 12:00 PM CDT): Start Protonix 40 mg daily. Check CBC because of the history of black stool. Schedule EGD for evaluation. Follow-up in 4-6 weeks. Black stool 07/27/2021 Overview (08/07/2021): Added automatically from request for surgery [id number] Colitis 05/27/2021 Assessment & Plan (08/06/2021 8:15 PM CDT): Recent Salmonella infection with colitis and diarrhea, and treated with antibiotics. She may be having post infectious diarrhea. Right carpal tunnel syndrome 12/21/2020 Overview (12/21/2020): Added automatically from request for surgery [id number] Carpal tunnel syndrome of right wrist 03/17/2020 [...] colonoscopy. 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 Has responded well to Zenpep. Continue pancreatic supplementation. If it turns out that she finds this totally under affordable of we would check stool pancreatic elastase after being off of the pancreatic enzyme for a week. Her previous testing was only fecal fat staining in [place]. She has had a significant clinical response and is doing well. Assessment & Plan (08/11/2018 2:04 PM CDT): The patient by history may have malabsorption related to chronic pancreatitis. I need to see the CT scan that was performed at [facility]. I also need to know whether [...] on file Legal Sex Female 9:41 PM TOUCH UP PAINTER Gender Identity Not on file Sexual Orientation Not on file Obstetrics History Last Filed Vital Signs Vital Sign Reading Time Taken Comments Blood Pressure 101/62 08/31/2023 4:50 PM TOUCH UP PAINTER Pulse 69 08/31/2023 4:55 PM TOUCH UP PAINTER Temperature 36.9 C (98.5 F) 08/31/2023 10:51 AM TOUCH UP PAINTER Respiratory Rate 18 08/31/2023 4:55 PM TOUCH UP PAINTER Oxygen Saturation 99% 08/31/2023 4:55 PM TOUCH UP PAINTER Inhaled Oxygen Concentration - - Weight 97.5 kg (215 lb) 08/31/2023 10:51 AM TOUCH UP PAINTER Height 162.6 cm (5' 4) 08/31/2023 10:51 AM TOUCH UP PAINTER Body Mass Index 36.9 08/31/2023 10:51 AM TOUCH UP PAINTER Plan of Treatment Health Maintenance Due Date [...] Recently Relevant to Health Maintenance Insurance MEDICARE [facility] UHC MEDICARE ADVANTAGE [employer] MEDICARE Advance Directives For more information, please contact: [phone] * Full Code (Latest Code Status on File) Date Activated Date Inactivated Comments 08/18/2021 7:21 AM 08/18/2021 1:29 PM * Full Code Date Activated Date Inactivated Comments 05/28/2021 9:34 AM 06/01/2021 7:01 PM Care Teams Drill Doctor Relationship Specialty Start Date End Date Jerri Sanchez MD [address] [place] [address] [place] [id number] PCP - General 11/14/17 Charmiane Becerra MD [address] [place] [address] [place] [id number] Consulting Physician Gastroenterology 06/01/21
[2025-05-26 11:19] LABS: INR 1.1; Prothrombin Time 13.9 Seconds (11.1-14.7)
[2025-05-26 11:20] LABS: Partial Thromboplastin Time 29.0 Seconds (22.3-36.8)
--- NOTE | 2025-05-26 11:26 | ED_ITS ---
HPI - Chest Pain General Chief Complaint: Chest Pain Stated Complaint: sent by PCP Time Seen by Provider: 05/26/25 10:45 History of Present Illness HPI narrative: Patient is a 74-year-old female presents to the ER with intermittent chest pain over the past year. She reports her symptoms have gotten worse over the last couple of days. Patient also endorses increased shortness of breath. She reports when she is laying in bed and turns over she gets ?very dizzy. Patient or sys a history of a TIA 25 years ago, type 2 diabetes, kidney stones, high blood pressure. She denies any recent fevers, upper back pain, headache, or lower extremity swelling. Related Data Home Medications ?Medication ?Instructions ?Recorded ?Confirmed ?Last Taken ?Type alprazolam 1 mg tablet 1 mg PO ,12 PRN Anxiety 10/30/19 10/19/20 10/18/20 History atorvastatin 40 mg tablet 40 mg PO HS 10/30/19 10/19/20 10/18/20 History citalopram 40 mg tablet 40 mg PO HS 10/30/19 10/19/20 10/18/20 History telmisartan 40 mg tablet tablet 03/10/22 Unknown History dicyclomine 10 mg capsule mg 05/12/23 Unknown History diphenoxylate-atropine 2.5 tablet 05/12/23 Unknown History mg-0.025 mg tablet duloxetine 30 mg capsule,delayed mg PO 05/12/23 Unknown History release folic acid 1 mg tablet 05/12/23 Unknown History Allergies Allergy/AdvReac Type Severity Reaction Status Date / Time Penicillins Allergy Unknown Rash Verified 05/26/25 11:04 Review of Systems 2 Review of Systems: All systems reviewed & are unremarkable except as noted in HPI and below PMFSH Past Medical History Medical History Depression Diabetes mellitus, type II Hx of hepatitis C Treated with interferon Chronic back pain Sleep apnea HLD (hyperlipidemia) HTN (hypertension) CAD (coronary artery disease) TIA (transient ischemic attack) 1999 Surgical History Surgical History S/P cervical spinal fusion H/O right wrist surgery H/O left wrist surgery H/O gastric bypass Lap band procedure Hx of cholecystectomy Hx of hysterectomy Family History Family History Mother Diabetes mellitus Hypertension Cerebrovascular accident Father Brain tumor Social History Social History Social History: The patient lives with a roommate. She has 1 child which is her daughter. Her daughter is a durable power litigation attorney associate for healthcare. The patient desires to be a full code. 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 Smoking status: Never smoker Alcohol intake: never Substance use: never Gender identity (if verbalized by the patient): Female Spiritual care concerns: No Exam 2 Narrative: GENERAL: Well appearing, obese, non-toxic, in no acute distress. HEAD: Normocephalic, atraumatic. NECK: Supple. No adenopathy, no masses. RESPIRATORY: Airway patent, respirations nonlabored. Clear to auscultation bilaterally, no rales, rhonchi, wheezing. CARDIOVASCULAR: Regular rate and rhythm without murmurs, rubs, or gallops. Peripheral pulses 2+ and equal bilaterally. + right CVA tenderness. ABDOMINAL: Soft, nontender, nondistended, no hepatosplenomegaly. Normoactive BS. MUSCULOSKELETAL: Moves all extremities. Strength/ROM intact without gross deformities. SKIN: Warm, dry, normal color. No rashes. NEURO: A&O X3. Speech clear. Cranial nerves II-XII intact. No ataxic movements. PSYCHIATRIC: Appropriate mood and affect. Normal interaction. Course Vital Signs Vital signs: Vital Signs Pulse Rate 71 05/26/25 10:35 Respiratory Rate 17 05/26/25 10:35 Blood Pressure 148/70 H 05/26/25 10:35 Pulse Oximetry 95 05/26/25 10:35 Oxygen Delivery Room Air 05/26/25 10:35 Temperature 36.4 C 05/26/25 11:05 Pulse Rate 73 05/26/25 11:05 Respiratory Rate 17 05/26/25 10:35 Blood Pressure 148/70 H 05/26/25 10:35 Pulse Oximetry 95 05/26/25 10:35 Oxygen Delivery Room Air 05/26/25 11:06 MDM - Chest Pain MDM Narrative Medical decision making narrative: Patient is a 74-year-old female presents to the ER with intermittent chest pain over the past year. She reports her symptoms have gotten worse over the last couple of days. Patient also endorses increased shortness of breath. She reports when she is laying in bed and turns over she gets ?very dizzy. Patient or sys a history of a TIA 25 years ago, type 2 diabetes, kidney stones, high blood pressure. She denies any recent fevers, upper back pain, headache, or lower extremity swelling. Labs Ordered: CBC, CMP, proBNP, UA, troponin, D-dimer, lipase, INR, PTT Imaging Ordered: Chest x-ray, CT diagnostic chest Medications Ordered: None necessary Results: Pt's chest CT scan indicates Thoracic aorta is grossly unremarkable with the exception of mild atherosclerotic disease. Heart is not enlarged. There are coronary artery calcifications. No large mediastinal or hilar lymph nodes. Visualized upper abdomen is unremarkable. Visualized tracheobronchial tree is patent. No pneumothorax. No pleural effusion. There are a few small reticular and bandlike opacities in the mid and lower lungs. No focal consolidation. No pulmonary mass. Multilevel mild to moderate degenerative change scattered throughout the visualized thoracic spine. Diagnosis: atypical chest pain Risks: HEART score: moderate (most likely elevated d/t pt's age) HEART Score for Major Cardiac Events from [email or web address] on 05/26/2025 All calculations should be rechecked by clinician prior to use RESULT SUMMARY: 4 points Moderate Score (4-6 points) Risk of MACE of 12-16.6%. INPUTS: History ?> 1 = Moderately suspicious EKG ?> 0 = Normal Age ?> 2 = >=5 Risk factors ?> 1 = 1-2 risk factors Initial troponin ?> 0 = <Normal limit Patient Education/Shared MDM: Results of lab work and imaging shared with patient. She endorses improvement of symptoms while she is in the ER. Patient strongly advised to follow-up with her PCP as soon as possible. She reports she would like to leave the ER because she has appointments this afternoon. Strict return precautions provided. Patient verbalized understanding and is in agreement with plan. Vital signs stable at time of discharge. All questions answered. Differential Diagnosis Differential diagnosis: Likely atypical chest pain, st elevation myocardial infarction and costochondritis Lab Data Attestation: I reviewed the patient's lab results. 05/26/25 11:02 05/26/25 11:37 Labs: Lab Results 05/26/25 05/26/25 05/26/25 Range/Units 11:02 11:37 12:19 WBC 4.7 (4.5-10.0) K/mm3 RBC 4.08 L (4.2-5.4) M/mm3 Hgb 12.9 (12.0-15.0) g/dL Hct 39.0 (37.0-47.0) % MCV 95.6 (80-100) fl MCH 31.6 (26-34) pg MCHC 33.1 (32-36) g/dl RDW 13.2 (11.5-14.5) % Plt Count 150 (150-375) k/mm3 MPV 10.0 (7.4-10.4) fl Immature Gran % (Auto) 0.2 (0-0.5) % Neut % (Auto) 56.9 (45.5-73.1) % Lymph % (Auto) 26.6 (18.3-44.2) % [place] % (Auto) 12.7 H (2.6-8.5) % Eos % (Auto) 2.3 (0-4.4) % Baso % (Auto) 1.3 H (0.2-1.2) % Lymph # (Auto) 1.26 (0.9-3.2) K/mm3 [place] # (Auto) 0.6 (0.1-0.6) K/mm3 Eos # (Auto) 0.1 (0-0.3) K/mm3 Baso # (Auto) 0.1 (0.0-0.1) K/mm3 Abs Immat Gran (auto) 0.01 (0.00-0.031) K/mm3 Absolute Neuts (auto) 2.7 (1.3-6.7) K/mm3 Absolute Nucleated RBC 0.000 (0.0-0.012) K/mm3 Nucleated RBC % 0.0 (0.0-0.2) % PT 13.9 (11.1-14.7) Seconds INR 1.1 APTT 29.0 (22.3-36.8) Seconds D-Dimer 0.37 (<0.48) ug/mL Sodium 137 (137-145) mmol/L Potassium 3.8 (3.4-5.0) mmol/L Chloride 107 (98-107) mmol/L Carbon Dioxide 24 (22-30) mmol/L Anion Gap 6 (4-12) mmol/L BUN 11 D (7-17) mg/dL Creatinine 0.87 (0.7-1.0) mg/dL Estim Creat Clear Calc 53 ml/min Estimated GFR > 60 (59 - ) Glucose 105 (65-110) mg/dL Calcium 9.0 (8.4-10.2) mg/dL Total Bilirubin 0.5 (0.2-1.3) mg/dL AST 29 (14-36) U/L ALT 17 (6-35) U/L Alkaline Phosphatase 65 (38-126) U/L Troponin I < 0.012 (0.000-0.034) ng/mL NT-Pro-B Natriuret Pep 172 H (19.9-100) pg/mL Total Protein 6.7 (6.3-8.2) g/dL Albumin 3.8 (3.5-5.1) g/dL Lipase 42 (23-300) U/L Urine Color Yellow (Yellow) Urine Appearance Clear (Clear) Urine pH 5.5 (5.0-9.0) Ur Specific [place] 1.013 (1.001-1.035) Urine Protein Negative (Negative) mg/dL Urine Glucose (UA) Negative (Negative) mg/dL Urine Ketones Negative (Negative) mg/dL Ur Blood (Man) Negative (Negative) Urine Nitrate Negative (Negative) Urine Bilirubin Negative (Negative) Urine Urobilinogen 0.2 (<2.0) mg/dL Leukocyte Esterase Rfl Negative (Negative) AUBREE/UL 05/26/25 Range/Units 13:57 WBC (4.5-10.0) K/mm3 RBC (4.2-5.4) M/mm3 Hgb (12.0-15.0) g/dL Hct (37.0-47.0) % MCV (80-100) fl MCH (26-34) pg MCHC (32-36) g/dl RDW (11.5-14.5) % Plt Count (150-375) k/mm3 MPV (7.4-10.4) fl Immature Gran % (Auto) (0-0.5) % Neut % (Auto) (45.5-73.1) % Lymph % (Auto) (18.3-44.2) % [place] % (Auto) (2.6-8.5) % Eos % (Auto) (0-4.4) % Baso % (Auto) (0.2-1.2) % Lymph # (Auto) (0.9-3.2) K/mm3 [place] # (Auto) (0.1-0.6) K/mm3 Eos # (Auto) (0-0.3) K/mm3 Baso # (Auto) (0.0-0.1) K/mm3 Abs Immat Gran (auto) (0.00-0.031) K/mm3 Absolute Neuts (auto) (1.3-6.7) K/mm3 Absolute Nucleated RBC (0.0-0.012) K/mm3 Nucleated RBC % (0.0-0.2) % PT (11.1-14.7) Seconds INR APTT (22.3-36.8) Seconds D-Dimer (<0.48) ug/mL Sodium (137-145) mmol/L Potassium (3.4-5.0) mmol/L Chloride (98-107) mmol/L Carbon Dioxide (22-30) mmol/L Anion Gap (4-12) mmol/L BUN (7-17) mg/dL Creatinine (0.7-1.0) mg/dL Estim Creat Clear Calc ml/min Estimated GFR (59 - ) Glucose (65-110) mg/dL Calcium (8.4-10.2) mg/dL Total Bilirubin (0.2-1.3) mg/dL AST (14-36) U/L ALT (6-35) U/L Alkaline Phosphatase (38-126) U/L Troponin I < 0.012 (0.000-0.034) ng/mL NT-Pro-B Natriuret Pep (19.9-100) pg/mL Total Protein (6.3-8.2) g/dL Albumin (3.5-5.1) g/dL Lipase (23-300) U/L Urine Color (Yellow) Urine Appearance (Clear) Urine pH (5.0-9.0) Ur Specific [place] (1.001-1.035) Urine Protein (Negative) mg/dL Urine Glucose (UA) (Negative) mg/dL Urine Ketones (Negative) mg/dL Ur Blood (Man) (Negative) Urine Nitrate (Negative) Urine Bilirubin (Negative) Urine Urobilinogen (<2.0) mg/dL Leukocyte Esterase Rfl (Negative) AUBREE/UL Imaging Data Attestation: I personally reviewed and interpreted this imaging study as follows: Radiologist's impression: Impressions Chest X-Ray 05/26/25 11:59 Impression: 1: Left basilar airspace disease may represent atelectasis or developing pneumonia. Chest CT 05/26/25 13:09 IMPRESSION: 1. There are a few small reticular and bandlike opacities in the mid and lower lungs. Differential includes atelectasis/scarring or infiltrates. 2. No focal pulmonary consolidation Discharge Plan Discharge Clinical Impression: Atypical chest pain, Costalchondritis Patient Disposition: Home Condition: Stable Instructions: Antibiotic Form, Noncardiac Chest Pain (ED) Additional Instructions: Please return to the ER with any worsening symptoms. Follow-up with primary care provider as soon as possible. Take all medications as prescribed, including regularly scheduled medications. Patient Language: Ecuadorean Prescriptions: No Action atorvastatin 40 mg tablet 40 mg PO HS citalopram 40 mg tablet 40 mg PO HS alprazolam 1 mg tablet 1 mg PO 09,12 PRN (Reason: Anxiety) diphenoxylate-atropine 2.5-0.025 mg tablet folic acid 1 mg tablet dicyclomine 10 mg capsule duloxetine 30 mg capsule,delayed release(DR/EC) PO Debrox 6.5 % drops 10 drp EACH EAR Q12H 4 Days Qty: 15 0RF acetaminophen [Mapap (acetaminophen)] 325 mg Tablet 650 mg PO Q4H PRN (Reason: Mild Pain (1-3) Or Fever) Qty: 60 0RF telmisartan 40 mg tablet sulfamethoxazole-trimethoprim [Bactrim DS] 800-160 mg tablet 1 tablet PO Q12H 10 Days Qty: 20 0RF hydrocodone-acetaminophen 5-325 mg tablet 1 tablet PO Q6H PRN (Reason: pain) 3 Days Qty: 12 0RF Follow-up/Referrals: Laura,Jerri Brown MD [Primary Care Provider] - Time of Disposition: 15:28
[2025-05-26 12:00] LABS: Alanine Aminotransferase 17 U/L (6-35); Albumin Level 3.8 g/dL (3.5-5.1); Alkaline Phosphatase 65 U/L (38-126); Anion Gap 6 mmol/L (4-12); Aspartate Amino Transferase 29 U/L (14-36); Bilirubin,Total 0.5 mg/dL (0.2-1.3); Blood Urea Nitrogen 11 mg/dL (7-17); Calcium 9.0 mg/dL (8.4-10.2); Carbon Dioxide 24 mmol/L (22-30); Chloride 107 mmol/L (98-107); Estimated CRCL calculation 53 ml/min; Estimated Glomerular Filt Rate > 60; Glucose 105 mg/dL (65-110); Lipase 42 U/L (23-300); Potassium 3.8 mmol/L (3.4-5.0); Sodium 137 mmol/L (137-145); Total Protein 6.7 g/dL (6.3-8.2)
[2025-05-26 12:10] LABS: NT Pro B Type Natriuretic Pept 172 pg/mL (19.9-100); Troponin I < 0.012 ng/mL (0.000-0.034)
[2025-05-26 12:26] LABS: Add Urine Microscopic? NO; Appearance Urine Clear (Clear); Glucose Urine UA Negative (Negative); Leukocyte Esterase Ur Negative LEU/UL (Negative); Nitrate Urine Negative (Negative); Specific Grav Ur 1.013 (1.001-1.035)
[2025-05-26 13:00] VITALS: BP 138/68; PULSE 68; RESP 18; O2SAT 96
[2025-05-26 14:33] LABS: Troponin I < 0.012 ng/mL (0.000-0.034)
[2025-05-26 15:00] VITALS: BP 140/62; PULSE 72; RESP 16; O2SAT 97
== END 2025-05-26 15:30 | disposition home or self-care (01) ==
PROVIDERS: Emergency Medicine; Emergency Provider Registered Nurse; PCP Family Medicine
DX: R07.89 Other chest pain (principal); M94.0 Chondrocostal junction syndrome [Tietze]; E11.9 Type 2 diabetes mellitus without complications; Z86.19 Personal history of other infectious and parasitic diseases; G89.29 Other chronic pain; Z86.73 Personal history of transient ischemic attack (TIA), and cerebral infarction without residual deficits; I25.10 Atherosclerotic heart disease of native coronary artery without angina pectoris; I10 Essential (primary) hypertension
CPT/HCPCS: 36415; 71046; 71260; 80053; 81003; 83690; 83880; 84484; 85025; 85380; 85610; 85730; 93005; 99284; Q9967